=== PATIENT | male | born 1945 | race Caucasian/White ===

== ENCOUNTER 2022-02-14 19:59 | Observation (INO) | payer OTHER ==
--- OUTSIDE RECORDS SUMMARY | 2022-02-14 20:04 | XMS REPORT | Clinical Summary ---
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 [facility] BM Granulocyte % 14 7 - 30 % [facility] BM Eosinophil % 3 0 - 4 % [facility] BM Lymphocyte % 10 3 - 17 % [facility] BM Plasma Cell % 0 0 - 2 % [facility] BM Monocyte % 1 0 - 5 % [facility] BM Pronormoblast % 5 1 - 8 % [facility] BM Normoblast % 47 (H) 7 - 32 % [facility] BM M:E Ratio 0.7 (L) 3.0 - 4.0 [facility] Specimen Bone Marrow - Iliac Crest, Right Posteri or, Aspirate Performing Organization Address City/State/ZIP Code Phon e Number [facility] [place] [address] Remington Leyva MD EndLeukemia Mutation Panel V1 Interpretation and Report (01/12/2022 2:52 PM CDT) Specimen Narrative This result has an attachment that is no t available. CG Chromosome Analysis Interpretation and Report (01/12/2022 2:52 PM CDT) Specimen Narrative This result has an attachment that is no t available. Cytogenetics Specimen Collection -Bone Marrow (01/12/2022 2:52 PM CDT) Pathologist Sig [facility] Papo121nexus Link [phone] [facility] Cytogenetics (Received) Yes [facility] Specimen Bone Marrow Performing Organization Address City/[facility] Phon e Number [facility] CANCER Unless otherwise noted, [address] all lab tests performed by: Division of Pathology and Laboratory Medicine Remington Leyva FC Scatter Interpretation and Report (01/12/2022 2:52 PM CDT) Specimen Narrative This result has an attachment that is no t available. Molecular Diagnostics Specimen Collection -Bone Marrow (01/12/2022 2:52 PM CDT) Pathologist Sig [facility] Molecular Diagnostics Yes [facility] (Received) [facility] Evrentaker Ap Link [phone] [facility] Specimen Bone Marrow Performing Organization Address City/[facility]/ZIP [facility] Phon e Number [facility] CANCER Unless otherwise noted, [address] all lab tests performed by: Division of Pathology and Laboratory Medicine Remington Leyva MD FLT3 Mutation Analysis Interpretation and Report (01/12/2022 2:52 PM CDT) Specimen Narrative This result has an attachment that is no t available. .Serum Creatinine (01/12/2022 11:01 AM CDT)Only the most recent of2 results within the time period is included. Pathologist Sig nature Creatinine 0.88 0.67 - 1.17 mg/dL [facility] IC CENTER Specimen Blood Performing Organization Address City/[facility] Phon e Number [facility] DIAGNOSTIC Unless otherwise noted, [place] [address] CENTER all lab tests performed by: Division of Pathology and Laboratory Medicine [address] (ABNORMAL) .CBC (01/12/2022 11:01 AM CDT)Only the most recent of2 resultswithin the time period is included. WBC 3.1 (L) 4.0 - 11.0 [facility] K/uL DIAGNOSTIC CENTER RBC 2.32 (L) 4.50 - 6.00 [facility] M/uL DIAGNOSTIC CENTER Hgb 8.5 (L) 14.0 - 18.0 [facility] gm/dL DIAGNOSTIC CENTER Hct 25.4 (L) 40.0 - 54.0 % [facility] DIAGNOSTIC [place] MCV 110 (H) 82 - 98 fL [facility] DIAGNOSTIC [place] MCH 36.6 (H) 27.0 - 31.0 [facility] pg DIAGNOSTIC CENTER MCHC 33.5 31.0 - 36.0 [facility] gm/dL DIAGNOSTIC CENTER RDW-SD 65.1 (H) 35.1 - 46.3 [facility] fL DIAGNOSTIC CENTER RDW-CV 18.8 (H) 12.0 - 15.5 % [facility] DIAGNOSTIC [place] Platelet count 184 140 - 440 [facility] K/uL DIAGNOSTIC CENTER MPV No Result (A) 4.0 - 10.4 fL [facility] DIAGNOSTIC [place] INRBC 0.0 <=0.0 % [facility] Comment: DIAGNOSTIC CENTER The INRBC (instrument NRBC) value reflects the enumera tion of nucleated red blood cells contained in a 200uL samp le of whole blood analyzed by the instrument. This value may differ from the NRBC value reported in a manual differ ential, which is based on a 100 cell differential. Specimen Blood Performing Organization Address City/[facility] Phon e Number [facility] DIAGNOSTIC Unless otherwise noted, [place], [place] [address] CENTER all lab tests performed by: Division of Pathology and Laboratory Medicine [address] [place] Clot Expiration Date (01/12/2022 11:01 AM CDT)Only the most recent of2 results within the time period is included. Pathologist Sig nature T & S Expiration 01/15/2022 [facility] CANCER CENTER Specimen Blood Performing Organization Address City/State/ZIP Code Phon e Number [facility] CANCER Unless otherwise noted, [place] [address] CENTER all lab tests performed by: Division of Pathology and Laboratory Medicine [address] [place] Glomerular Filtration Rate (01/12/2022 11:01 AM CDT)Only the most recent of2 resultswithin the time period is included. eGFR-AA 96 >=60 [facility] Comment: mL/min/1.73 [facility] Normal eGFR: >= 60 mL/min/1.73 m2 sq. m Note: The eGFR is calculated using the CKD-EPI equation. The eGFR declines with age. eGFR <60 mL/min/1.73 m2 is considered as "decreased". This equation should only be used for patients 18 and older. According to the National Ki dney Foundation's Kidney Disease Outcome Quality Initiative (KDOQI) classification and 2012 Kidney Disease Improving Global Outcomes (KDIGO) Clinical Practice Guideline, the stage of CKD should be categorized based on estimated GFR. Stage Description GFR mL/min/1.73 m2 1 Normal or high GFR >=90 2 Mildly decreased GFR 60-89 3a Mildly to moderately decreased GFR 45-59 3b Moderately to severely decreased GFR 30-44 4 Severely decreased GFR 15-29 5 Kidney failure <15 eGFR-BRII 83 >=60 [facility] Comment: mL/min/1.73 [facility] Normal eGFR: >= 60 mL/min/1.73 m2 sq. m Note: The eGFR is calculated using the CKD-EPI equation. The eGFR declines with age. eGFR <60 mL/min/1.73 m2 is considered as "decreased". This equation should only be used for patients 18 and older. According to the National dney Foundation's Kidney Disease Outcome Quality Initiative (KDOQI) classification and 2012 Kidney Disease Improving Global Outcomes (KDIGO) Clinical Practice Guideline, the stage of CKD should be categorized based on estimated GFR. Stage Description GFR mL/min/1.73 m2 1 Normal or high GFR >=90 2 Mildly decreased GFR 60-89 3a Mildly to moderately decreased GFR 45-59 3b Moderately to severely decreased GFR 30-44 4 Severely decreased GFR 15-29 5 Kidney failure <15 Specimen Blood Performing Organization Address City/[facility] Phon e Number [facility] DIAGNOSTIC Unless otherwise noted, [place], [place] [address] CENTER all lab tests performed by: Division of Pathology and Laboratory Medicine [facility]5 [place] (ABNORMAL) Fractionated Bilirubin (01/12/2022 11:01 AM CDT)Only the most recent of2 resultswithin the time period is included. Pathologist [facility] Bili Total 1.5 (H) <=1.2 mg/dL [facility] Comment: DIAGNOSTIC CENTER Indocyanine Green (ICG) may cause falsely elevated bilirubin results. Total and direct bilirubin must not be measured from samples containing indocyanine green. False elevation of total harpal irubin can be seen in patients with IgG concentrations above 28 g/L. Bili Direct 0.2Comment: <=0.3 mg/dL [facility] Indocyanine Green DIAGNOSTIC CENTER (ICG) may cause falsely elevated bilirubin results. Total and direct bilirubin must not be measured from samples containing indocyanine green. Bili Indirect 1.3 (H) 0.0 - 0.9 [facility] mg/dL DIAGNOSTIC CENTER Specimen Blood Performing Organization Address City/[facility] Phon e Number [facility] DIAGNOSTIC Unless otherwise noted, [place] [address] CENTER all lab tests performed by: Division of Pathology and Laboratory Medicine [facility]5 [place] Leyva TMP Interpretation Antibody Screen Negative (01/12/2022 11:01 AM CDT)Only the most recent of2 resultswithin the time period is included. Pathologist [facility] TMP Auto Neg ABSC At the present time, patien t plasma shows no evidence of RBC alloantibodies. [facility] Interp Comment: CANCER CENTER MD Rachael ALFARO [id number] Dictated by: MD Rachael ALFARO [id number] Dictated Date/Time: 01.13.20 21:18 PM CDT Transcribed Date/Time: 01.12.2022 21:18 PM CDT Electronically Signed By: CORAL ARAMBULA MD - [id number] on 01.12.2022 21:18 PM Specimen Blood Performing Organization Address City/State/ZIP Code Phon e Number [facility] CANCER Unless otherwise noted, [place] [phone] [place] all lab tests performed by: Division of Pathology and Laboratory Medicine [address] [place] Peripheral Smear for Bone Marrow (01/12/2022 11:01 AM CDT) Pathologist Sig nature Peripheral Smear PSMEAR [facility] DIAGNOSTI C CENTER Specimen Blood Performing Organization Address City/State/ZIP Code Phon e Number [facility] DIAGNOSTIC Unless otherwise noted, [place] [address] [place] all lab tests performed by: Division of Pathology and Laboratory Medicine [address] [place] [address] [place] ABORh (01/12/2022 11:01 AM CDT)Only the most recent of2 resultswithin the time period is included. Pathologist Sig nature ABORh. A POS [facility] Specimen Blood Performing Organization Address City/[facility]/ZIP Code Phon e Number [facility] CANCER Unless otherwise noted, [address] all lab tests performed by: Division of Pathology and Laboratory Medicine [address] [place] [address] (ABNORMAL) Differential (01/12/2022 11:01 AM CDT)Only the most recent of2 resultswithin the time period is included. Neutrophil % 44.8 42.0 - 66.0 % [facility] Lymphocyte % 36.5 24.0 - 44.0 % [facility] Monocyte % 9.7 (H) 2.0 - 7.0 % [facility] DIAGNOSTIC [place] Eosinophil % 8.1 (H) 1.0 - 4.0 % [facility] Basophil % 0.3 0.0 - 1.0 % [facility] IGRE % 0.6 (H)Comment: 0.0 - 0.4 % [facility] IGRE % count DIAGNOSTIC CENTER includes Metamyelocytes, Myelocytes, and Promyelocytes. Neutrophil Abs 1.39 (L) 1.70 - 7.30 [facility] K/uL DIAGNOSTIC CENTER Lymphocyte Abs 1.13 1.00 - 4.80 [facility] DIAGNOSTIC CENTER Monocyte Abs 0.30 0.08 - 0.70 [facility] DIAGNOSTIC CENTER Eosinophil Abs 0.25 0.04 - 0.40 [facility] DIAGNOSTIC CENTER Basophil Abs 0.01 0.00 - 0.10 [facility] DIAGNOSTIC CENTER IG Abs 0.02 0.00 - 0.04 [facility] DIAGNOSTIC CENTER Specimen Blood Performing Organization Address City/[facility]/ZIP [facility] Phon e Number [facility] DIAGNOSTIC Unless otherwise noted, [address] all lab tests performed by: Division of Pathology and Laboratory Medicine [address] [place] Antibody Screen (01/12/2022 11:01 AM CDT)Only the most recent of2 resultswithin the time period is included. Pathologist Sig nature ABSC. Negative ABSC [facility] CANCER CENTE R Specimen Blood Performing Organization Address [facility] Phon e Number [facility] CANCER Unless otherwise noted, [address] all lab tests performed by: Division of Pathology and Laboratory Medicine [address] [place] Uric Acid (01/12/2022 11:01 AM CDT)Only the most recent of2 resultswithin the time period is included. Pathologist Sig nature Uric Acid 4.9 3.4 - 7.0 mg/dL [facility] Specimen Blood Performing Organization Address City/[facility] Phon e Number [facility] DIAGNOSTIC Unless otherwise noted, [address] all lab tests performed by: Division of Pathology and Laboratory Medicine [address] [place] BUN (01/12/2022 11:01 AM CDT)Only the most recent of2 resultswithin the time period is included. Pathologist Sig nature BUN 15 6 - 23 mg/dL [facility] DIAGNOSTIC CE NTER Specimen Blood Performing Organization Address City/[facility] Phon e Number [facility] DIAGNOSTIC Unless otherwise noted, [place] [address] [place] all lab tests performed by: Division of Pathology and Laboratory Medicine [address] [place] Alanine Aminotransferase (01/12/2022 11:01 AM CDT)Only the most recent of2 resultswithin the time period is included. Pathologist Sig nature ALT 21 <=41 U/L [facility] DIAGNOSTIC CE NTER Specimen Blood Performing Organization Address [facility] Phon e Number [facility] DIAGNOSTIC Unless otherwise noted, [address] all lab tests performed by: Division of Pathology and Laboratory Medicine [address] [place] Aspartate Aminotransferase (01/12/2022 11:01 AM CDT)Only the most recent of2 resultswithin the time period is included. Pathologist Sig nature AST 26 <=40 U/L [facility] DIAGNOSTIC CE NTER Specimen Blood Performing Organization Address [facility] Phon e Number [facility] DIAGNOSTIC Unless otherwise noted, [address] all lab tests performed by: Division of Pathology and Laboratory Medicine [address] [place] Total Protein (01/12/2022 11:01 AM CDT)Only the most recent of2 resultswithin the time period is included. Pathologist Sig nature Total Protein 6.7 6.4 - 8.3 g/dL [facility] Specimen Blood Performing Organization Address [facility] e Number [facility] DIAGNOSTIC Unless otherwise noted, [address] all lab tests performed by: Division of Pathology and Laboratory Medicine [address] Alkaline Phosphatase (01/12/2022 11:01 AM CDT)Only the most recent of2 results within the time period is included. Pathologist Sig nature Alk Phos 62 40 - 129 U/L [facility] DIAGNOSTIC CE NTER Specimen Blood Performing Organization Address [facility] Phon e Number [facility] DIAGNOSTIC Unless otherwise noted, [address] all lab tests performed by: Division of Pathology and Laboratory Medicine [address] LDH (01/12/2022 11:01 AM CDT)Only the most recent of2 resultswithin the time period is included. LDH 218Comment: Results 135 - 225 U/L [facility] greater than 1651 U/L [facility] may not be reliable due to matrix effect with extended dilution as it exceeds the acupuncture physician's recommended limit. Caution should be exercised when interpreting such values and done in conjunction with clinical context. Specimen Blood Performing Organization Address [facility] e Number [facility] DIAGNOSTIC Unless otherwise noted, [address] all lab tests performed by: Division of Pathology and Laboratory Medicine [address] [place] [address] Albumin Level (01/12/2022 11:01 AM CDT)Only the most recent of2 resultswithin the time period is included. Pathologist Sig nature Albumin Lvl 4.4 3.5 - 5.2 gm/dL [facility] Specimen Blood Performing Organization Address City/[facility]/ZIP [facility] Phon e Number [facility] DIAGNOSTIC Unless otherwise noted, [place] [address] [place] all lab tests performed by: Division of Pathology and Laboratory Medicine [address] [place] [address] Electrolyte Panel (01/12/2022 11:01 AM CDT)Only the most recent of2 results within the time period is included. Pathologist Sig nature Sodium Lvl 137 136 - 145 mEq/L [facility] Potassium Lvl 4.0 3.5 - 5.1 mEq/L [facility] DIAGNOSTI C CENTER Chloride 104 98 - 107 mEq/L [facility] CO2 27 22 - 29 mEq/L [facility] Anion Gap 6 4 - 14 mEq/L [facility] Specimen Blood Performing Organization Address [facility] Phon e Number [facility] DIAGNOSTIC Unless otherwise noted, [place] [address] [place] all lab tests performed by: Division of Pathology and Laboratory Medicine [address] [place] [address] Glucose, Random (07/09/2021 10:58 AM CDT) Glucose Random 133 70 - 199 mg/dL [facility] Comment: CANCER CENTER Effective 05/12/16, the gluco se reference intervals have been updated based on [employer] Diabetes [employer] guidelines (Standards of Medical Care in Diabetes 2016. Diabetes Care 2016; 39: S13-S22). Fasting blood glucose: Normal: 70-99 mg/dL Impaired fasting glucose (in creased risk for diabetes or pre-diabetes): 100- 125 mg/dL Diabetes mellitus: >/=126 mg/dL Random blood glucose: Normal: 70-199 mg/dL Note: Random glucose >100 mg/dL is assoc iated with increased risk for diabetes Specimen Blood Performing Organization Address City/[facility] Phon e Number [facility] CANCER Unless otherwise noted, [address] all lab tests performed by: Division of Pathology and Laboratory Medicine [address] [place] Phosphorus Level (07/09/2021 10:58 AM CDT) Pathologist Sig nature Phosphorus 2.5 2.5 - 4.5 mg/dL [facility] CANCER TYE TER Specimen Blood Performing Organization Address [facility] Phon e Number [facility] CANCER Unless otherwise noted, [address] all lab tests performed by: Division of Pathology and Laboratory Medicine [address] [place] Magnesium Level (07/09/2021 10:58 AM CDT) Pathologist Sig nature Magnesium 1.9 1.6 - 2.6 mg/dL [facility] CANCER TYE TER Specimen Blood Performing Organization Address [facility] Phon e Number [facility] CANCER Unless otherwise noted, [address] all lab tests performed by: Division of Pathology and Laboratory Medicine [address] [place] Calcium Level (07/09/2021 10:58 AM CDT) Pathologist Sig nature Calcium Lvl 9.2 8.4 - 10.2 mg/dL [facility] CANCER CE NTER Specimen Blood Performing Organization Address [facility] Phon e Number [facility] CANCER Unless otherwise noted, [address] all lab tests performed by: Division of Pathology and Laboratory Medicine [address] [place] after 02/14/2021 Insurance Payer Benefit Plan / Subscriber ID Effective Dates Phone Addre ss Type Group AETNA MEDICARE AETNA MEDICARE [id number] 2021-Presen [address] [place] [address] Care Teams Chyron Operator Relationship Specialty Start Date End Date Esther Nair MD PCP - General Leukemia 02/24/17 [address], [place] [phone] DELMA Villarreal - External Referring Hematology 02/24/17 Telma Richardson [place] [address] [address] Steffany De La Torre Physician Hematology and 06/29/[address] [place] [address]
--- OUTSIDE RECORDS SUMMARY | 2022-02-14 20:05 | XMS REPORT | Continuity of Care Document ---
:1945 Author Organization [facility] t Address [address] [place] [address] Care Team Providers Name Role Phone [phone] Primary Care Physician Unavailable SYSTEM, NOT IN Attending Clinician Unavailable Blayne BUCIO Attending Clinician Paulina Aranda APN Attending Clinician Tito BUCIO Attending Clinician PAULINA ARANDA Attending Clinician Unavailable Burak NUÑEZ Attending Clinician BURAK Attending Clinician Unavailable Kelly NOLEN Attending Clinician KELLY Attending Clinician Unavailable Elier MARTÍNEZ Attending Clinician Unavailable Elier Martínez RN Attending Clinician Unavailable Payers Payer Name Policy Type Policy Effective Date Expiration Date Sour ce Number AETNA MEDICAREAETNA [id number] 2021 MD Gutierrez MEDICARE 00:00:00 [id number] [address], [place] [address]Medicare Problems Condition Condition Condition Status Onset Resolution Last Treating Co mments Source Name Details Category Date Date Treatment Clinician Date 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 00 Leukopenia Leukopenia Disease Active 2017-10 M D 0-07 Anderso 00:00: n 00 Exam of Exam of Disease Active MD gamez participamilcar 9-12 An derso t in t in 00:00: n clinical clinical 00 trial trial Entered Entered Disease Active into drug into drug 06-16 Dewey rso clinical clinical 00:00: n trial trial 00 Simple Simple Disease Active renal cyst renal cyst 30 An derso 00:00: n 00 Other Other Disease Active fatigue fatigue 11-15 Anderso 00:00: n 00 Dyspnea Dyspnea Disease Active 30 Anderso 00:00: n 00 RARS RARS Disease Active 06-09 Anderso 00:00: n 00 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 Family History Family Member Diagnosis Comments Start Date Stop Date Source Natural father -Gastrointestinal MD Gutierrez (Esophagus, Liver, Bile Duct, Stomach, Pancreas, Colon, Rectum, Anus Natural father -Head and Neck Natural father -Skin (not Melanoma) MD Gutierrez Natural father Coronary heart disease (CHD) MD Gutierrez Social History Social Habit Start Date Stop Date Quantity Comments Source History [facility] MD Gutierrez Alcohol Frequency History [facility] MD Gutierrez Alcohol Std Drinks History [facility] MD Gutierrez Alcohol Binge Alcohol intake 2019-02-01 2019-02-01 Current drinker of MD Gutierrez 00:00:00 00:00:00 alcohol (finding) History [facility] 2017-03-21 2017-03-21 Very rare MD Gutierrez Alcohol Comment 00:00:00 00:00:00 Cigarettes smoked 2017-03-01 2017-03-01 MD Dewey doherty current (pack per 00:00:00 00:00:00 day) - Reported Cigarette 2017-03-01 2017-03-01 MD Gutierrez pack-years 00:00:00 00:00:00 Tobacco use and 2017-03-01 2017-03-01 Former smokeless MD Gutierrez exposure 00:00:00 00:00:00 tobacco user History of tobacco 1962-10-17 1983-10-21 Current smoker MD Gutierrez use 00:00:00 00:00:00 Sex [birth year] MD Hinton on 00:00:00 00:00:00 Smoking Status Start Date Stop Date Source Ex-smoker 2017-03-01 00:00:00 2017-03-01 00:00:00 MD Zurita son Medications Ordered Filled Start Stop Current Ordering Indication Dosage Frequency Signature Comments Components Source Medication Medication Date Date Medication? Clinician (SIG) Name Name aspirin Yes 81mg 81 mg (ASPIRIN 3-29 daily. Anderso LOW DOSE) 12:44: n 81 mg EC 29 tablet atorvastati Yes 10mg Take 10 mg MD márquez (LIPITOR) 3-29 by mouth Dewey rso 10 mg 12:44: daily. n tablet 29 fluocinolon Yes Administer MD morillo acetonide 4-05 into both And erso oiL 0.01 % 00:00: ears as n drop 00 needed. Immunizations Ordered Immunization Filled Immunization Date Status Commen ts Source Name Name Influenza, 2021-07-09 Completed MD Gutierrez Quadrivalent 00:00:00 Moderna SARS-CoV-2 2021-06-24 Completed MD And erson Vaccination 00:00:00 Moderna SARS-CoV-2 2020-11-22 Completed MD And erson Vaccination 00:00:00 Moderna SARS-CoV-2 2020-10-25 Completed MD And erson Vaccination 00:00:00 Vital Signs Vital Name Observation Time Observation Value Comments Source WEIGHT 2021-01-06 13:18:34 83.3 kg WEIGHT 2020-09-25 11:27:09 83.4 kg WEIGHT 2020-07-03 12:19:37 82.8 kg Systolic blood pressure 2022-01-12 19:59:00 144 mm[Hg] MD Gutierrez Diastolic blood pressure 2022-01-12 19:59:00 68 mm[Hg] MD Gutierrez Heart rate 2022-01-12 19:59:00 73 /min MD Parminder sellers Body temperature 2022-01-12 15:57:25 36.89 Maribell MD Darvin miranda Respiratory rate 2022-01-12 15:57:25 18 /min MD Darvin miranda Body weight 2022-01-12 15:57:25 78 kg MD Parminder sellers BMI 2022-01-12 15:57:25 29.61 kg/m2 MD Parminder sellers Oxygen saturation in 2022-01-12 15:57:25 97 /min MD Gutierrez Arterial blood by Pulse oximetry Procedures Procedure Date / Time Performed Performing Clinician Sour e LABORATORY HP MOLECULAR 2022-01-13 18:06:00 Janes Aranda MD DIAGNOSTICS ([facility]) ADD-ON TEST LA DIAGNOSTIC BONE MARROW 2022-01-12 19:59:45 Janes Aranda MD BIOPSIES & ASPIRATIONS HP FC MDS FOLLOW UP 2022-01-12 19:52:00 Janes Aranda MD COLLECTION, NONBLOOD HP CG CHROMOSOME ANALYSIS 2022-01-12 19:52:00 Janes Aranda MD COLLECTION, NONBLOOD HP TP53 COLLECTION, 2022-01-12 19:52:00 Janes Aranda MD NONBLOOD HP FLT3 ANALYSIS 2022-01-12 19:52:00 Janes Aranda MD COLLECTION, NONBLOOD HP ASXL1 COLLECTION, 2022-01-12 19:52:00 Janes Aranda MD NONBLOOD HP RUNX1 MUTATION ANALYSIS 2022-01-12 19:52:00 Janes Aranda MD COLLECTION, NONBLOOD HP DNMT3A SEQUENCING 2022-01-12 19:52:00 Janes Aranda MD ANALYSIS COLLECTION, NONBLOOD HP MOLECULAR BLOOD COLLECTION 2022-01-12 19:52:00 Janes Aranda MD HP FLT3 ANALYSIS 2022-01-12 19:52:00 Janes Aranda MD INTERPRETATION AND REPORT HP CYTOGENETICS BLOOD 2022-01-12 19:52:00 Janes Aranda COLLECTION HP CG CHROMOSOME ANALYSIS 2022-01-12 19:52:00 Janes Aranda MD INTERPRETATION AND REPORT HP FC SCATTER INTERPRETATION 2022-01-12 19:52:00 Janes Aranda MD AND REPORT HP MD ENDLEUKEMIA MUTATION 2022-01-12 19:52:00 Janes Aranda MD PANEL V1 INTERPRETATION AND REPORT HEMATOPATHOLOGY BONE MARROW 2022-01-12 19:52:00 Esther Nair MD INTERPRETATION HEMATOPATHOLOGY BONE MARROW 2022-01-12 19:52:00 Esther Nair MD DIFFERENTIAL TOTAL PROTEIN 2022-01-12 16:01:00 Cata Sumner MD rson ALBUMIN LEVEL 2022-01-12 16:01:00 Cata Sumner MD rson BLOOD UREA NITROGEN 2022-01-12 16:01:00 Cata Sumner MD SERUM CREATININE 2022-01-12 16:01:00 Cata Sumner MD And erson URIC ACID 2022-01-12 16:01:00 Cata Sumner MD Dewey rson FRACTIONATED BILIRUBIN 2022-01-12 16:01:00 Cata Sumner MD ALKALINE PHOSPHATASE 2022-01-12 16:01:00 Cata Sumner MD LACTATE DEHYDROGENASE 2022-01-12 16:01:00 Cata Sumner ALANINE AMINOTRANSFERASE 2022-01-12 16:01:00 Giovani Sumner ELECTROLYTE PANEL 2022-01-12 16:01:00 Cata Sumner MD derson ASPARTATE AMINOTRANSFERASE 2022-01-12 16:01:00 Boris Sumner MD TYPE AND SCREEN 2022-01-12 16:01:00 Cata Sumner MD Dewey rson COMPLETE BLOOD COUNT W/ 2022-01-12 16:01:00 Cata Sumner MD DIFFERENTIAL SERUM CREATININE 2022-01-12 16:01:00 Cata Sumner MD And erson .GLOMERULAR FILTRATION RATE 2022-01-12 16:01:00 Jocelin Sumner MD ABORH 2022-01-12 16:01:00 Cata Sumner MD Edwey rson ANTIBODY SCREEN 2022-01-12 16:01:00 Cata Smuner MD Dewey rson Results CBC 2022-01-12 16:01:00 Cata Sumner MD Dewey rson MANUAL DIFFERENTIAL 2022-01-12 16:01:00 Cata Sumner MD CLOT EXPIRATION DATE 2022-01-12 16:01:00 Cata Sumner MD TMP INTERPRETATION ANTIBODY 2022-01-12 16:01:00 Jocelin Sumner MD SCREEN NEGATIVE PERIPHERAL SMEAR FOR BONE 2022-01-12 16:01:00 Elena Sumner MD MARROW TOTAL PROTEIN 2021-07-09 15:58:00 Cata Sumner MD Dewey rson ALBUMIN LEVEL 2021-07-09 15:58:00 Cata Sumner MD Dewey rson CALCIUM LEVEL TOTAL 2021-07-09 15:58:00 Cata Sumner MD PHOSPHORUS LEVEL 2021-07-09 15:58:00 Cata Sumner MD And erson GLUCOSE, RANDOM 2021-07-09 15:58:00 Cata Sumner MD Dewey rson BLOOD UREA NITROGEN 2021-07-09 15:58:00 Cata Sumner MD SERUM CREATININE 2021-07-09 15:58:00 Cata Sumner MD And erson URIC ACID 2021-07-09 15:58:00 Cata Sumner MD Dewey rson FRACTIONATED BILIRUBIN 2021-07-09 15:58:00 Cata Sumner MD ALKALINE PHOSPHATASE 2021-07-09 15:58:00 Cata Sumner MD LACTATE DEHYDROGENASE 2021-07-09 15:58:00 Cata Sumner ALANINE AMINOTRANSFERASE 2021-07-09 15:58:00 Giovani Sumner ELECTROLYTE PANEL 2021-07-09 15:58:00 Cata Sumner MD derson MAGNESIUM LEVEL 2021-07-09 15:58:00 Cata Sumner MD Dewey rson ASPARTATE AMINOTRANSFERASE 2021-07-09 15:58:00 Boris Sumner MD TYPE AND SCREEN 2021-07-09 15:58:00 Cata Sumner MD Dewey rson COMPLETE BLOOD COUNT W/ 2021-07-09 15:58:00 Cata Sumner MD DIFFERENTIAL SERUM CREATININE 2021-07-09 15:58:00 Cata Sumner MD And erson .GLOMERULAR FILTRATION RATE 2021-07-09 15:58:00 Jocelin Sumner MD Results CBC 2021-07-09 15:58:00 Cata Sumner MD Dewey rson MANUAL DIFFERENTIAL 2021-07-09 15:58:00 Cata Sumner MD ABORH 2021-07-09 15:58:00 Cata Sumner MD Dewey rson ANTIBODY SCREEN 2021-07-09 15:58:00 Cata Sumner MD Dewey rson CLOT EXPIRATION DATE 2021-07-09 15:58:00 Cata Sumner MD TMP INTERPRETATION ANTIBODY 2021-07-09 15:58:00 Jocelin Sumner MD SCREEN NEGATIVE Plan of Care Planned Activity Planned Date Details Comments Source Future Scheduled Test 2021-11-24 00:00:00 COVID-19 Vaccination (4 MD Gutierrez - Booster for Moderna series) [code = COVID-19 Vaccination (4 - Booster for Moderna series)] Encounters Start End Encounter Admission Attending Care Care Encounter Source Date/Time Date/Time Type Type Clinicians Facility Department ID 2021-07-13 Outpatient SYSTEM, MDA MDA [id number] 13:48:43 PROVIDER Jamaal o n 2021-01-21 Outpatient SYSTEM, MDA MDA [id number] 14:47:44 PROVIDER Jamaal o n 2021-01-12 Outpatient SYSTEM, MDA MDA [id number] 14:54:17 PROVIDER Jamaal o n 2020-08-11 Outpatient SYSTEM, MDA MDA [id number] 13:55:31 PROVIDER Jamaal o n 2020-05-09 Outpatient SYSTEM, MDA MDA [id number] 12:21:02 PROVIDER Jamaal o n 2022-01-12 2022-01-12 Outpatient JANES CALDERON MDA MDA [id number] 13:56:18 23:59:00 Ajmaal o n 2022-01-12 2022-01-12 Outpatient TRICIA SUMNER MDA MDA [id number] 10:46:41 13:55:00 CATA Palomo rso n 2022-01-12 2022-01-12 Outpatient TRICIA NAIR MDA MDA [id number] 10:47:23 13:49:33 ESTHER And erso n 2021-07-09 2021-07-09 Outpatient TRICIA SUMNER MDA MDA [id number] 10:36:45 23:59:00 CATA Palomo rso n 2021-07-09 2021-07-09 Outpatient TRICIA MARTÍNEZ, MDA MDA [id number] 14:03:21 14:18:22 ANA Hinton o n 2021-07-09 2021-07-09 Outpatient TRICIA NAIR, MDA MDA [id number] 10:37:09 13:55:41 PRITHVIRAJ And erso n 2021-01-06 2021-01-06 Outpatient TRICIA SUMNER, MDA MDA [id number] 15:10:25 23:59:00 CATA Wellse rso n 2021-01-06 2021-01-06 Outpatient TRICIA NAIR, MDA MDA [id number] 12:40:51 15:21:59 PRITHVIRAJ And erso n 2021-01-06 2021-01-06 Outpatient TRICIA SUMNER, MDA MDA [id number] 12:41:05 15:09:00 CATA Palomo rso n 2020-09-25 2020-09-25 Outpatient TRICIA SUMNER, MDA MDA [id number] 11:18:00 23:59:00 CATA Palomo rso n 2020-09-25 2020-09-25 Outpatient TRICIA NAIR, MDA MDA [id number] 11:18:28 13:08:43 PRITHVIRAJ And erso n 2020-07-03 2020-07-03 Outpatient TRICIA SUMNER, MDA MDA [id number] 13:57:17 23:59:00 CATA Palomo rso n 2020-07-03 2020-07-03 Outpatient TRICIA NAIR, MDA MDA [id number] 11:45:47 13:58:23 PRITHVIRAJ And erso n 2020-07-03 2020-07-03 Outpatient TRICIA SUMNER, MDA MDA [id number] 11:45:25 13:56:00 CATA Palomo rso n Results Test Description Test Time Test Comments Results Result Comments Source Laboratory HP Molecular Diagnostics Add-on Test 2022-01-14 0 1:28:45 Test Item Value Reference Range Interpretation Comme nts Molecular Diagnostics (Received) (test code = 8400) Yes Test Needed (test code = 7604) SF3B1, TET2 MD GutierrezFC MDS Follow Up Collection, [id number] 15:29:31 Test Item Value Reference Range Interpretation Comments Flow Cytometry (Received) (test code = Yes 8319) [facility] Interpret[facility] Antibody Screen [id number] 02:18:29 Test Item Value Reference Range Interpretation Comments TMP Auto Neg At the present ABSC Interp time, patient (test code = plasma shows no ____CORAL ARAMBULA MD - 7535) evidence of RBC [id number] d by: CORAL alloantibodies. MD Rachael PATEL [id number] D ate/Time: 01.12.2022 21:1 8 PM CDT Transcribed Da te/Time: 01.12.2022 21:1 8 PM CDTElectronical ly Signed By: MD Rachael GARRIDO [id number] on 01.12 21:18 PM MD GutierrezPeripheral Smear for Bone [id number] 01:49:54 Test Item Value Reference Range Interpretation Comments Peripheral Smear (test code = 4273) PSMEAR MD GutierrezCytogenetics Specimen Collection -Bone [id number] 21:54:27 Test Item Value Reference Range Interpretation Comments Beaker Ap Link (test code = 47127) [id number] Cytogenetics (Received) (test code Yes = 8304) MD Turpin Chromosome Analysis Collection, [id number] 21:52:47 Test Item Value Reference Range Interpretation Comments Cytogenetics (Received) (test code = Yes 8304) MD Stover RUNX1 Mutation Analysis Collection, [id number] 21:52:08 Test Item Value Reference Range Interpretation Comments Molecular Diagnostics (Received) (test Yes code = 8400) MD Stover ASXL1 Collection, [id number] 21:52:07 Test Item Value Reference Range Interpretation Comments Molecular Diagnostics (Received) (test Yes code = 8400) MD Stover TP53 Collection, [id number] 21:52:06 Test Item Value Reference Range Interpretation Comments Molecular Diagnostics (Received) (test Yes code = 8400) MD Stover FLT3 Mutation Analysis Collection, [id number] 21:52:05 Test Item Value Reference Range Interpretation Comments Molecular Diagnostics (Received) (test Yes code = 8400) MD Stover DNMT3A Mutation Analysis Collection, [id number] 21:52:04 Test Item Value Reference Range Interpretation Comments Molecular Diagnostics (Received) (test Yes code = 8400) MD GutierrezMolecular Diagnostics Specimen Collection -Bone [id number] 21:48:43 Test Item Value Reference Range Interpretation Comments Molecular Diagnostics (Received) Yes (test code = 8400) Jonathon Ap Link (test code = 35611) [id number] MD GutierrezAntibody [id number] 20:52:09 Test Item Value Reference Range Interpretation Comments ABSC. (test code = 890-4) Negative ABSC MD [id number] 20:52:08 Test Item Value Reference Range Interpretation Comments ABORh. (test code = 882-1) A POS MD GutierrezClot Expiration [id number] 20:52:03 Test Item Value Reference Range Interpretation Comments T & S Expiration (test code = 01/15/2022 5318) MD GutierrezFractionated [id number] 17:08:18 Test Item Value Reference Range Interpretation Comments Bili Total (test code 1.5 mg/dL See_Comment H Indocy anine Green = 1974-11) (ICG) may cause falsely elevate d bilirubin resul ts. Total and direc t bilirubin must not be measured from s amples containing indo cyanine green. False el evation of total biliru bin can be seen in kaushal ents with IgG concentrations above 28 g/L. [Autom ated message] The sy stem which generated this result transmit joseph reference range : <=1.2. The refe rence range was not u sed to interpret this result as normal/abnor mal. Bili Direct (test code 0.2 mg/dL See_Comment Indoc yanine Green = 1968-04) (ICG) may cause falsely elevate d bilirubin resul ts. Total and direc t bilirubin must not be measured from s amples containing indo cyanine green. [Automat ed message] The sy stem which generated this result transmit joseph reference range : <=0.3. The refe rence range was not u sed to interpret this result as normal/abnor mal. Bili Indirect (test 1.3 mg/dL 0.0-0.9 H code = 1971-1) Lab Interpretation Abnormal (test code = 56255-1) MD GutierrezGlomerular Filtration [id number] 17:08:17 Test Item Value Reference Range Interpretation Comments eGFR-AA (test code 96 See_Comment Normal eG FR: >= 60 = 69159-2) mL/min/1.73 m2N ote: The eGFR is calculated u sing the CKD-EPI equatio n. The eGFR declines with a ge. eGFR <60 mL/min/1.73 m2 is considered as "decreased". This equation should only be used for patients 18 and older. According to e National Kidney [employer] on's Kidney Disease Outcome Quality Initiative (KDO QI) classification and 2012 Kidney Disease Improving Global Outcomes (KDIGO) Clinical Practi ce Guideline, the stage of CK D should be categorized bas ed on estimated GFR. Stage Description GFR mL/min/1.73 m21 Normal or high GFR >=902 Mildly decrease d GFR 60-893a M ildly to moderately decr eased GFR 45-593b Moderat haley to severely decrea sed GFR 30-444 Severely decreased GFR 15-295 Kid ross failure <15 [Automa joseph message] The system [employer] generated this result tra nsmitted reference range : >=60 mL/min/1.73 sq. m. The reference range was not used to interpret th is result as normal/abnormal . eGFR-BRII (test code 83 See_Comment Normal e GFR: >= 60 = 46104-2) mL/min/1.73 m2N ote: The eGFR is calculated u sing the CKD-EPI equatio n. The eGFR declines with a ge. eGFR <60 mL/min/1.73 m2 is considered as "decreased". This equation should only be used for patients 18 and older. According to e National [employer] on's Kidney Disease Outcome Quality Initiative (KDO QI) classification and 2012 Kidney Disease Improving Global Outcomes (KDIGO) Clinical Practi ce Guideline, the stage of CK D should be categorized bas ed on estimated GFR. Stage Description GFR mL/min/1.73 m21 Normal or high GFR >=902 Mildly decrease d GFR 60-893a M ildly to moderately decr eased GFR 45-593b Moderat haley to severely decrea sed GFR 30-444 Severely decreased GFR 15-295 Kid ross failure <15 [Automa joseph message] The system whic h generated this result tra nsmitted reference range : >=60 mL/min/1.73 sq. m. The reference range was not used to interpret th is result as normal/abnormal . MD [id number] 17:08:16 Test Item Value Reference Range Interpretation Comments LDH (test code = 218 U/L 135-225 Results gre ater than 1651 50418-0) U/L may not be reliable due to matrix effec t with extended diluti on as it exceeds the man ufacturer's recommended alfonso it. Caution should be exerc ised when interpreting duran ch values and done in con junction with clinical c ontext. MD GutierrezAlkaline [id number] 17:08:15 Test Item Value Reference Range Interpretation Comments Alk Phos (test code = 6768-6) 62 U/L 40-129 MD GutierrezAlbumin [id number] 17:08:14 Test Item Value Reference Range Interpretation Comments Albumin Lvl (test code 4.4 See_Comment [Aut omated message] The = 0170) system which ge nerated this result tra nsmitted reference range : 3.5 - 5.2 gm/dL. The refe rence range was not used to interpret this result as normal/abnormal . MD GutierrezAspartate [id number] 17:08:13 Test Item Value Reference Range Interpretation Comments AST (test code = 26 U/L See_Comment [Automated message] The 1920-05) system which [employer] nerated this result transmit joseph reference range : <=40. The reference range was not used to interpr et this result as loida l/abnormal. MD GutierrezElectrolyte [id number] 17:08:12 Test Item Value Reference Range Interpretation Comments Sodium Lvl (test code = 137 See_Comment [Au tomated message] The 2950-11) system which [employer] nerated this result tra nsmitted reference range : 136 - 145 mEq/L. The reference range was not u sed to interpret this result as normal/abnormal . Potassium Lvl (test 4.0 See_Comment [Automa joseph message] The code = 2823-3) system which generated this result tra nsmitted reference range : 3.5 - 5.1 mEq/L. The reference range was not u sed to interpret this result as normal/abnormal . Chloride (test code = 104 See_Comment [Auto mated message] The ) system which ge nerated this result tra nsmitted reference range : 98 - 107 mEq/L. The refe rence range was not u sed to interpret this result as normal/abnormal . CO2 (test code = 27 See_Comment [Automated message] The 2028-06) system which ge nerated this result tra nsmitted reference range : 22 - 29 mEq/L. The refe rence range was not u sed to interpret this result as normal/abnormal . Anion Gap (test code = 6 See_Comment [Aut omated message] The ) system which ge nerated this result tra nsmitted reference range : 4 - 14 mEq/L. The refe rence range was not u sed to interpret this result as normal/abnormal . MD Gutierrez.Serum [id number] 17:08:11 Test Item Value Reference Range Interpretation Comments Creatinine (test code = 2160-0) 0.88 mg/dL 0.67-1.17 MD GutierrezUric [id number] 17:07:55 Test Item Value Reference Range Interpretation Comments Uric Acid (test code = 3084-1) 4.9 mg/dL 3.4-7.0 MD GutierrezTotal [id number] 17:07:54 Test Item Value Reference Range Interpretation Comments Total Protein (test code = 2885-2) 6.7 g/dL 6.4-8.3 MD GutierrezAlanine [id number] 17:07:53 Test Item Value Reference Range Interpretation Comments ALT (test code = 21 U/L See_Comment [Automated message] The 1742-03) system which ge nerated this result transmit joseph reference range : <=41. The reference range was not used to interpr et this result as loida l/abnormal. MD [id number] 17:07:52 Test Item Value Reference Range Interpretation Comments BUN (test code = 3094-0) 15 mg/dL 6-23 MD Gutierrez[id number] 16:55:40 Test Item Value Reference Range Interpretation Comments Neutrophil % (test code = 44.8 % 42.0-66.0 770-8) Lymphocyte % (test code = 36.5 % 24.0-44.0 736-9) Monocyte % (test code = 9.7 % 2.0-7.0 H 5905-5) Eosinophil % (test code = 8.1 % 1.0-4.0 H 713-8) Basophil % (test code = 0.3 % 0.0-1.0 29223-4) IGRE % (test code = 0.6 % 0.0-0.4 H IGRE % c ount 40257-2) includes Metamyelocytes, Myelocytes, and Promyelocytes. Neutrophil Abs (test code 1.39 K/uL 1.70-7.30 L = 751-8) Lymphocyte Abs (test code 1.13 K/uL 1.00-4.80 = 731-0) Monocyte Abs (test code = 0.30 K/uL 0.08-0.70 742-7) Eosinophil Abs (test code 0.25 K/uL 0.04-0.40 = 711-2) Basophil Abs (test code = 0.01 K/uL 0.00-0.10 704-7) IG Abs (test code = 0.02 K/uL 0.00-0.04 96929-7) Lab Interpretation (test Abnormal code = 12553-6) MD Gutierrez.[id number] 16:55:37 Test Item Value Reference Range Interpretation Comments WBC (test code = 3.1 K/uL 4.0-11.0 L 6690-2) RBC (test code = 789-8) 2.32 See_Comment L [Au tomated message] The system [employer] generated this result transmitted ref erence range: 4.50 - 6 .00 M/uL. The refer ence range was not u sed to interpret this result as normal/abnor mal. Hgb (test code = 718-7) 8.5 See_Comment L [Au tomated message] The system [employer] generated this result transmitted ref erence range: 14.0 - 1 8.0 gm/dL. The refe rence range was not u sed to interpret this result as normal/abnor mal. Hct (test code = 25.4 % 40.0-54.0 L 4544-3) MCV (test code = 787-2) 110 fL 82-98 H MCH (test code = 785-6) 36.6 pg 27.0-31.0 H MCHC (test code = 33.5 See_Comment [Automate d message] 786-4) The system [employer] generated this result transmitted ref erence range: 31.0 - 3 6.0 gm/dL. The refe rence range was not u sed to interpret this result as normal/abnor mal. RDW-SD (test code = 65.1 fL 35.1-46.3 H 47495-9) RDW-CV (test code = 18.8 % 12.0-15.5 H 788-0) Platelet count (test 184 K/uL 140-440 code = 777-3) MPV (test code = No Result 4.0-10.4 A 72214-5) INRBC (test code = 0.0 % See_Comment The INRBC (instrument 27739-8) NRBC) value ref lects the enumeration of nucleated red b lood cells contained in a 200uL sampleof whole blood analyzed by the instrument. Thi s value maydiffer from the NRBC value reported in a anual differential,wh ich is based on a 100 cell differential. [Automated mess age] The system [employer] generated this result transmitted ref erence range: <=0.0. T he reference range was not used to int erpret this result as normal/abnormal . Lab Interpretation Abnormal (test code = 68814-6) MD GutierrezMagnesium [id number] 17:25:15 Test Item Value Reference Range Interpretation Comments Magnesium (test code = 6359) 1.9 mg/dL 1.6-2.6 MD GutierrezGlucose, [id number] 17:25:09 Test Item Value Reference Range Interpretation Comments Glucose Random (test 133 mg/dL 70-199 Effecti ve 05/12/16, the code = 9360) glucose referen ce intervals have been updated based o n [place] [employer] sonny delines (Standards of edical Care in Diabete s 2016. Diabetes Care 2 016; 39: S13-S22).Fastin g blood glucose:Normal: 70-99 mg/dLImpaired f asting glucose (increa sed risk for diabetes or pre-diabetes): 100-125 mg/dLDiabetes m ellitus: >/=126 mg/dL Ra ndom blood glucose:N ormal: 70-199 mg/dLNot e: Random glucose >100 mg /dL is associated with increased risk for diabetes MD GutierrezPhosphorus [id number] 17:25:08 Test Item Value Reference Range Interpretation Comments Phosphorus (test code = 6817) 2.5 mg/dL 2.5-4.5 MD GutierrezCalcium [id number] 17:25:06 Test Item Value Reference Range Interpretation Comments Calcium Lvl (test code = 5258) 9.2 mg/dL 8.4-10.2 MD Gutierrez
[2022-02-14 20:47] LABS: Absolute Lymphocytes (CBC) 0.9 K/uL (0.7-4.9); Hematocrit 23.6 % (39.6-49.0); Lymphocytes % 39.5 % (15.3-44.8); MPV 9.1 fL (7.6-11.3); Protime INR 1.26; RBC Red Blood Cell Count 2.17 M/uL (4.33-5.43)
[2022-02-14 21:00] LABS: Albumin 3.6 g/dL (3.4-5.0); Bilirubin Direct 0.3 mg/dL (0-0.2); Bilirubin Total 0.9 mg/dL (0.2-1.0); Magnesium 1.9 mg/dL (1.8-2.4); Potassium 3.4 mmol/L (3.5-5.1); Protein, Total 6.3 g/dL (6.4-8.2); Troponin High Sensitivity 9.6 pg/mL (<58.9)
--- NOTE | 2022-02-14 21:20 | RAD REPORT ---
EXAM DESCRIPTION: RAD - Chest Single View - 02/14/2022 9:11 pm CLINICAL HISTORY: presyncope Chest pain. COMPARISON: Chest Pa And Lat (2 Views) dated 08/04/2017; CHEST PA AND LAT 2 VIEW dated 10/20/2012; REAL ST SINGLE VIEW dated 09/14/2011; CHEST PA AND LAT 2 VIEW dated 05/14/2010 FINDINGS: Portable technique limits examination quality. The lungs are grossly clear. The heart is normal in size. No displaced fractures. IMPRESSION: No acute intrathoracic process suspected.
--- NOTE | 2022-02-14 23:46 | ER ---
Nurse's Notes [facility] Name: Juan Miguel Aguilar Age: 76 yrs Sex: Male : 1945 Arrival Date: 02/14/2022 Time: 20:01 Bed 18 Private MD: Diagnosis: Syncope and Collapse;Insect Envenomation;Anemia Presentation: 02/14 20:06 Chief complaint: EMS states: [facility] states that pt had been stung by a wasp kd3 on the left side of the neck. pt had trouble breathing and began to sweat and began vomiting. pt called EMS. pt received 12.5 mg Benadryl IV and 12.5 Benadryl IM as well as 125 Solu Medrol and 12.5 mg Phenergan en route. pt symptoms improved. 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 last chemo was approximately 2 weeks ago. Coronavirus screen: Vaccine status: Patient reports receiving the 2nd dose of the covid vaccine. Ebola Screen: No symptoms or risks identified at this time. Onset: The symptoms/episode began/occurred suddenly. Anaphylaxis evaluation, the patient reports or I have noted the following symptoms which indicate a significant risk of anaphylaxis: shortness of breath tachypnea. Initial Sepsis Screen: Does the patient meet any 2 criteria? No. Patient's initial sepsis screen is negative. Does the patient have a suspected source of infection? No. Patient's initial sepsis screen is negative. Risk Assessment: Do you want to hurt yourself or someone else? Patient reports no desire to harm self or others. Onset of symptoms was February 14, 2022. 20:06 Method Of Arrival: EMS: [facility] kd3 20:06 Acuity: SCARLET 3 kd3 Triage Assessment: 20:12 General: Appears in no apparent distress. Behavior is calm, cooperative. Pain: Denies kd3 pain. Historical: - Allergies: 20:12 Ibuprofen; kd3 - Home Meds: 20:12 aspirin 81 mg Oral tab 81 mg daily [Active]; Lipitor 10 mg Oral tab 1 tab once daily kd3 for hyperlipidemia [Active]; - PMHx: 20:12 cancer rbc; kd3 - PSHx: 20:12 None; kd3 - Immunization history:: Adult Immunizations up to date. - Social history:: Smoking status: unknown. Screenin:16 Abuse screen: Denies threats or abuse. Denies injuries from another. Nutritional kd3 screening: No deficits noted. Tuberculosis screening: No symptoms or risk factors identified. Fall Risk IV access (20 points). Assessment: 20:17 Respiratory: Airway is patent Respiratory effort is even, unlabored, Breath sounds are kd3 clear bilaterally. 20:38 Reassessment: No changes from previously documented assessment. Patient and/or family kd3 updated on plan of care and expected duration. Pain level reassessed. Patient is alert, oriented x 3, equal unlabored respirations, skin warm/dry/pink. see triage notes. 21:27 Reassessment: Patient and/or family updated on plan of care and expected duration. Pain kd3 level reassessed. Patient is alert, oriented x 3, equal unlabored respirations, skin warm/dry/pink. Vital Signs: 20:06 BP 119 / 62; Pulse 80; Resp 17; Temp 98.2(O); Pulse Ox 98% ; Weight 76.2 kg; Height 5 kd3 ft. 7 in. (170.18 cm); Pain 0/10; 21:27 BP 106 / 53; Pulse 88; Resp 17; Pulse Ox 97% on R/A; kd3 22:26 BP 116 / 46 Supine; Pulse 81; Resp 20; Pulse Ox 98% on R/A; kd3 22:27 BP 130 / 63 Sitting; Pulse 86; Resp 19; Pulse Ox 98% on R/A; kd3 22:27 BP 123 / 65 Standing; Pulse 83; Resp 14; Pulse Ox 96% on R/A; kd3 02/15 02:40 BP 100 / 42; Pulse 80; Resp 16; Pulse Ox 99% on R/A; kd3 02/14 20:06 Body Mass Index 26.31 (76.20 kg, 170.18 cm) kd3 ED Course: 02/14 20:01 Patient arrived in ED. jj6 20:06 Inez Calixto, MICHELLE is Primary Nurse. kd3 20:11 Clifton Saenz PA is PHCP. lopez 20:11 Ravi Gutierrez MD is Attending Physician. dorotheam 20:12 Triage completed. kd3 20:12 Arm band placed on right wrist. kd3 20:16 Patient has correct armband on for positive identification. kd3 21:13 XRAY Chest (1 view) In Process Unspecified. EDMS 23:45 Ravi Gutierrez MD is Hospitalizing Provider. [facility] 23:45 Darvin Hoyt MD is Hospitalizing Provider. [facility] 02/15 08:11 No provider procedures requiring assistance completed. IV discontinued, intact, ll1 bleeding controlled, No redness/swelling at site. Pressure dressing applied. Administered Medications: No medications were administered Outcome: 02/14 23:46 Decision to Hospitalize by Provider. [facility] 02/15 08:10 Patient left the ED. ll1 08:11 Admitted to Tele family with patient. 1 08:11 Condition: stable 08:11 Instructed on the need for admit. Signatures: Dispatcher [employer] EDMS Clifton Saenz PA PA jmm Lewis, Lynsay, RN RN ll1 Fina Adamej6 Inez Calixto RN RN kd3 Corrections: (The following items were deleted from the chart) 02/14 22:51 22:27 BP 123 / 65 Standing; Pulse 23bpm; Resp 14bpm; Pulse Ox 96% RA; kd3 kd3
--- NOTE | 2022-02-14 23:46 | EDPHYS ---
Physician Documentation [facility] Name: Juan Miguel Aguilar Age: 76 yrs Sex: Male : 1945 Arrival Date: 02/14/2022 Time: 20: Bed 18 Private MD: ED Physician Ravi Gutierrez HPI: 02/13 20:19 This 76 yrs old Male presents to ER via EMS with complaints of Allergic Reaction. jmm 20:19 The patient presents with localized swelling. This is a 76-year-old male with history jmm of MDS that presents emerged department after a syncopal episode which occurred just prior to arrival. Patient was stung by a red wasp on the left side of his neck. Patient developed increased swelling. The states that the patient complained about changes in his vision and fell backwards and collapsed. Patient currently denies chest pain or shortness of breath. Denies swelling to his throat.. Historical: - Allergies: 02/14 20:12 Ibuprofen; kd3 - Home Meds: 20:12 aspirin 81 mg Oral tab 81 mg daily [Active]; Lipitor 10 mg Oral tab 1 tab once daily kd3 for hyperlipidemia [Active]; - PMHx: 20:12 cancer rbc; kd3 - PSHx: 20:12 None; kd3 - Immunization history:: Adult Immunizations up to date. - Social history:: Smoking status: unknown. ROS: 02/13 20:19 Constitutional: Negative for fever, chills, and weight loss, Cardiovascular: Negative jmm for chest pain, palpitations, and edema, Respiratory: Negative for shortness of breath, cough, wheezing, and pleuritic chest pain. Neuro: Positive for syncope. All other systems are negative. Exam: 20:19 Constitutional: This is a well developed, well nourished patient who is awake, alert, jmm and in no acute distress. Head/Face: atraumatic. Eyes: EOMI, no conjunctival erythema appreciated ENT: Moist Mucus Membranes Neck: Trachea midline, Supple Chest/axilla: Normal chest wall appearance and motion. Cardiovascular: Regular rate and rhythm. No edema appreciated Respiratory: Normal respirations, no respiratory distress appreciated Abdomen/GI: Non distended, soft Back: Normal ROM Skin: General appearance color normal MS/ Extremity: Moves all extremities, no obvious deformities appreciated, no edema noted to the lower extremities Neuro: Awake and alert Psych: Behavior is normal, Mood is normal, Patient is cooperative and pleasant Vital Signs: 02/14 20:06 BP 119 / 62; Pulse 80; Resp 17; Temp 98.2(O); Pulse Ox 98% ; Weight 76.2 kg; Height 5 kd3 ft. 7 in. (170.18 cm); Pain 0/10; 21:27 BP 106 / 53; Pulse 88; Resp 17; Pulse Ox 97% on R/A; kd3 22:26 BP 116 / 46 Supine; Pulse 81; Resp 20; Pulse Ox 98% on R/A; kd3 22:27 BP 130 / 63 Sitting; Pulse 86; Resp 19; Pulse Ox 98% on R/A; kd3 22:27 BP 123 / 65 Standing; Pulse 83; Resp 14; Pulse Ox 96% on R/A; 3 02/15 02:40 BP 100 / 42; Pulse 80; Resp 16; Pulse Ox 99% on R/A; 3 02/14 20:06 Body Mass Index 26.31 (76.20 kg, 170.18 cm) 3 MDM: 02/14 20:19 Patient medically screened. [facility] 23:44 Data reviewed: vital signs, nurses notes. Counseling: I had a detailed discussion with [facility] the patient and/or guardian regarding: the historical points, exam findings, and any diagnostic results supporting the discharge/admit diagnosis, lab results, the need for further work-up and treatment in the hospital. ED course: Patient's case was discussed with Dr. Gutierrez who will consult with Dr. Hoyt in the morning. 02/14 20:24 Order name: Basic Metabolic Panel; Complete Time: 21:00 [facility] 02/14 20:24 Order name: CBC with Diff; Complete Time: 12:06 [facility] 02/14 20:24 Order name: LFT's; Complete Time: 21:00 [facility] 02/14 20:24 Order name: Magnesium; Complete Time: 21:00 [facility] 02/14 20:24 Order name: NT PRO-BNP; Complete Time: 21:00 [facility] 02/14 20:24 Order name: PT-INR; Complete Time: 20:48 [facility] 02/14 20:24 Order name: Troponin HS; Complete Time: 21:00 [facility] 02/14 20:24 Order name: XRAY Chest (1 view); Complete Time: 21:28 [facility] 02/14 20:47 Order name: SARS-COV-2 RT PCR (Document "Date of Onset" if Symptomatic); Complete Time: [facility] 22:25 02/14 23:52 Order name: Basic Metabolic Panel [facility] 02/14 23:52 Order name: Basic Metabolic Panel; Complete Time: 12:06 [facility] 02/14 23:52 Order name: CBC with Automated Diff [facility] 02/14 23:52 Order name: CBC with Automated Diff; Complete Time: 12:06 [facility] 02/15 01:11 Order name: CBC Smear Scan; Complete Time: 12:06 [facility] 02/14 20:24 Order name: EKG; Complete Time: 20:25 [facility] 02/14 20:24 Order name: Cardiac monitoring; Complete Time: 20:37 [facility] 02/14 20:24 Order name: EKG - Nurse/Tech; Complete Time: 20:46 [facility] 02/14 20:24 Order name: IV Saline Lock; Complete Time: 20:37 [facility] 02/14 20:24 Order name: Labs collected and sent; Complete Time: 20:37 [facility] 02/14 20:24 Order name: O2 Per Protocol; Complete Time: 20:37 [facility] 02/14 20:24 Order name: O2 Sat Monitoring; Complete Time: 20:37 [facility] 02/14 23:52 Order name: Regular [facility] 02/14 23:52 Order name: EKG Electrocardiogram [facility] 02/14 23:52 Order name: EKG Electrocardiogram [facility] 02/14 23:52 Order name: EKG Electrocardiogram [facility] 02/14 23:52 Order name: EKG Electrocardiogram [facility] 02/14 23:52 Order name: EKG Electrocardiogram [facility] Administered Medications: No medications were administered Disposition Summary: 02/14/22 23:46 Hospitalization Ordered Hospitalization Status: Inpatient Admission jm Provider: Darvin Hoyt Condition: Stable jmm Problem: new jmm Symptoms: have improved jmm Bed/Room Type: Standard [facility] Location: [facility] ER HOLD(02/15/22 00:11) cg Room Assignment: ERHOLD-(02/15/22 00:11) cg Diagnosis - Syncope and Collapse jmm - Insect Envenomation jmm - Anemia jmm Forms: - Medication Reconciliation Form jmm - SBAR form jmm Signatures: Dispatcher [employer] Clifton Pierre PA PA jmm Garcia, Cindy, RN RN Inez Salcido RN RN kd3 Corrections: (The following items were deleted from the chart) 02/15 00:11 02/14 23:46 Telemetry/MedSurg (Inpatient) [facility] 02/15 00:11 02/14 23:46 [facility]
[2022-02-14] MEDS ORDERED: ONDANSETRON 4 MG/2 ML VIAL IV PRN (23:49)
[2022-02-15 01:10] LABS: Anisocytosis 1+; Blood Morphology Comment NOTED (NOT SEEN); Macrocytosis 1+; Platelet Estimate ADEQ; White Blood Cell Scan OK (OK)
[2022-02-15 02:50] VITALS: BMI 26.2
[2022-02-15 04:06] LABS: Absolute Lymphocytes (CBC) 0.4 K/uL (0.7-4.9); BUN Blood Urea Nitrogen 16 mg/dL (7-18); Bicarbonate 29 mmol/L (21-32); Glucose Level 155 mg/dL (74-106); Hematocrit 23.9 % (39.6-49.0); Lymphocytes % 17.1 % (15.3-44.8); Potassium 3.9 mmol/L (3.5-5.1); RBC Red Blood Cell Count 2.18 M/uL (4.33-5.43); Sodium Level 140 mmol/L (136-145)
[2022-02-15 06:17] VITALS: O2SAT 97
[2022-02-15 08:13] VITALS: BP 108/54; TEMP 98.8
--- NOTE | 2022-02-16 15:46 | HP ---
Date of Admission: 02/15/2022 Date of Discharge: 02/15/2022 Chief Complaint: Wasp bite and fainting episode. History Of Present Illness: This is a 76-year-old pleasant male patient who was outside his house working and there was a wasp nest and he saw a small wasp that actually ended up stinging him in his neck area and he did actually end up killing that wasp, but within short time after that, he told his that he was not feeling well. He felt little dizzy and sat down and within short time after that he was leaning backwards, eyes rolled backwards, and he became unresponsive when was trying to talk to him. called 911 and by the time the ambulance arrived, the patient was already awake and alert. He actually was able to get up and walk down few steps with EMS and came to emergency room. After he came to ER, he was admitted to the hospital. He denies any chest pain, shortness of breath, or any palpitation type of feeling. He had 1 episode of nausea and vomiting after EMS arrived at the scene. Denies any swelling of the neck or any swelling of the face. The patient reports that he has had a wasp sting in the past, but never had this kind of reaction before. Allergies: HE IS LISTED ALLERGIC TO IBUPROFEN CAUSING CHILLS. Medications: He takes aspirin 81 mg daily and atorvastatin 10 mg daily. Review of Systems: Cardiovascular: As mentioned above. GI: As mentioned above. Constitutional: As mentioned above. All other systems reviewed and negative. Past Medical History: Significant for impaired fasting glucose, hypertension, hyperlipidemia, gastroesophageal reflux disease, diverticulosis, benign prostatic hypertrophy, anemia, myelodysplastic syndrome, renal cyst. Past Surgical History: Vasectomy, knee surgery. Family History: Father had PA. Mother, hypertension. Sister with migraine. Social History: Negative for smoking and alcohol use. Physical Examination: Vital Signs: Temperature 98.2, pulse 68, respiratory rate 16, blood pressure 100/42, oxygen saturation 99% on room air. Height 5 feet 7 inches, weight 167 pounds. General: Awake, alert, oriented, not in distress. HEENT: Head atraumatic, normocephalic. Conjunctivae nonerythematous. Sclerae white. Mouth, no thrush or edema noted. Ears/Nose, no mass, lesion, discharge noted. Neck: Supple. No JVD, lymph nodes, bruit, thyromegaly noted. Lungs: Bilateral good equal air entry. Clear to auscultation. No rhonchi. No rales. Heart: Normal heart sounds, no murmur or gallop. Abdomen: Soft, bowel sounds normal. No guarding, rigidity, tenderness, mass, hepatosplenomegaly, distention, or bruit noted. Extremities: No leg edema. No calf tenderness. Skin: No rash, ulcer, cellulitis. Lymphatics: No lymph node enlargement in neck, supraclavicular, infraclavicular region. Neuro: No focal neurological deficit. Chest: Unremarkable. External Genitalia: Deferred. Rectal: Deferred. Labs: When he first came into the ER last night, white count 2.2, hemoglobin 8.2, platelets 159. This morning, white count 2.2, hemoglobin 8.1, and platelets 142. Last night, sodium 144, potassium 3.4, chloride 109, bicarb 30, BUN 17, creatinine 1.03, glucose 119. Liver function tests unremarkable. This morning, sodium 140, potassium 3.9, chloride 108, bicarb 29, BUN 16, creatinine 0.77, glucose 155. COVID-19 test negative. Chest x-ray, no acute cardiopulmonary changes. Hospital Course: After the patient was evaluated in the ER, he was admitted to the hospital. He remained in the emergency room. When I saw him this morning, his was with him at bedside. Denies any complaints. Medically, he is stable for discharge and there is no ongoing problem with any reaction after this wasp sting. I did talk to the patient and his that the best thing for him to do is take appropriate precautions to avoid any kind of wasp sting, avoiding certain activities in certain areas outside the house and the patient reports that he is simply not going to quit doing his activities outside the house, but he will try to be careful and I have advised him to carry EpiPen with him because of the concern about the reaction that he had this time. In the event of wasp sting, he should consider using EpiPen injection immediately and alert 911 system just because of the severity of the reaction he had. There is a good possibility that this time the patient probably had a drop in his blood pressure resulting into fainting type of episode. The patient was discharged to go home in stable condition. Discharge Medications And Instructions: 1. Continue all prior home medications. 2. Follow up at my office on , which is 02/18/2022. 3. Use EpiPen on emergency basis as suggested. Final Diagnoses: 1. Allergic reaction to wasp sting. 2. Syncope. 3. Hypertension. 4. Hyperlipidemia. 5. Impaired fasting glucose. 6. Myelodysplastic syndrome. 7. Anemia. 8. Leukocytopenia. 9. Benign prostatic hypertrophy. KERI/MODL Voice ID: [id number] [id number]
== END 2022-02-15 08:08 | disposition home health service (06) ==
LOC: ER 19:59 → ERHOLD 02-15 00:33 → INTOOBSV 02-15 00:33
PROVIDERS: ADMIT Internal Medicine; ATTEND Internal Medicine
DX: T63.461A Toxic effect of venom of wasps, accidental (unintentional), initial encounter (principal); R55 Syncope and collapse; Y92.008 Other place in unspecified non-institutional (private) residence as the place of occurrence of the external cause; I10 Essential (primary) hypertension; E78.5 Hyperlipidemia, unspecified; R73.01 Impaired fasting glucose; D46.9 Myelodysplastic syndrome, unspecified; D64.9 Anemia, unspecified; D72.819 Decreased white blood cell count, unspecified; N40.0 Benign prostatic hyperplasia without lower urinary tract symptoms; K21.9 Gastro-esophageal reflux disease without esophagitis; K57.90 Diverticulosis of intestine, part unspecified, without perforation or abscess without bleeding; N28.1 Cyst of kidney, acquired; Z20.822 Contact with and (suspected) exposure to COVID-19; Z79.82 Long term (current) use of aspirin; Z79.899 Other long term (current) drug therapy; Z88.8 Allergy status to other drugs, medicaments and biological substances; Z98.52 Vasectomy status; Z82.49 Family history of ischemic heart disease and other diseases of the circulatory system
CPT/HCPCS: 93005; 85025 ×2; 80048 ×2; 36415; 83735; 85610; 80076; 84484; 83880; 71045; 99285; U0003; G0378 ×2

== ENCOUNTER → 2023-05-13 | Day surgery (SDC) | payer OTHER ==
[~2023-05-13] MED LIST: NA CHLORIDE 0.9% 250 ML ONE
[2023-05-13 09:49] VITALS: BP 123/66; TEMP 98.1; O2SAT 98; BMI 23.1
[2023-05-13 13:32] LABS: Hematocrit 24.4 % (39.6-49.0)
== END ==
LOC: DS 08:40
PROVIDERS: ATTEND Internal Medicine Hematology & Oncology
DX: D46.9 Myelodysplastic syndrome, unspecified (principal); D64.9 Anemia, unspecified; E83.19 Other disorders of iron metabolism; D72.818 Other decreased white blood cell count
CPT/HCPCS: 36415; 86900; 86850; 86901; 86920; 85018; 85014; 36430; P9016; J7050

== ENCOUNTER 2023-06-07 07:04 | Day surgery (SDC) | payer OTHER ==
[2023-06-07] MEDS ORDERED: NA CHLORIDE 0.9% 250 ML ONE (08:02)
[2023-06-07 08:55] VITALS: O2SAT 99; BMI 23.1
[2023-06-07 12:55] VITALS: BP 127/60; TEMP 98.4
== END 2023-06-07 12:49 | disposition home or self-care (01) ==
LOC: DS 07:04
PROVIDERS: ATTEND Internal Medicine Hematology & Oncology
DX: D46.9 Myelodysplastic syndrome, unspecified (principal); E83.19 Other disorders of iron metabolism
CPT/HCPCS: 36415; 86900; 86850; 86901; 86920; 85018; 85014; 36430; P9016; J7050

== ENCOUNTER 2023-08-23 07:16 | Day surgery (SDC) | payer OTHER ==
[2023-08-23] MEDS ORDERED: NA CHLORIDE 0.9% 250 ML ONE (07:55)
[2023-08-23 12:37] LABS: Hematocrit 24.6 % (39.6-49.0)
[2023-08-23 14:20] VITALS: BMI 23.8
[2023-08-23 14:29] VITALS: BP 129/68; TEMP 98.7; O2SAT 99
== END 2023-08-23 12:35 | disposition home or self-care (01) ==
LOC: DS 07:16
PROVIDERS: ATTEND Internal Medicine Hematology & Oncology
DX: D64.9 Anemia, unspecified (principal); E83.19 Other disorders of iron metabolism; D72.818 Other decreased white blood cell count
CPT/HCPCS: 36415; 86900; 86850; 86901; 86920; 85018; 85014; 36430; P9016; J7050

== ENCOUNTER 2023-09-06 07:30 | Day surgery (SDC) | payer OTHER ==
[2023-09-06] MEDS ORDERED: NA CHLORIDE 0.9% 250 ML ONE (07:43)
[2023-09-06 11:43] VITALS: O2SAT 100
[2023-09-06 13:31] VITALS: BP 139/71; TEMP 97.5
== END 2023-09-06 13:15 | disposition home or self-care (01) ==
LOC: DS 07:30
PROVIDERS: ATTEND Internal Medicine Hematology & Oncology
DX: D46.9 Myelodysplastic syndrome, unspecified (principal); D64.9 Anemia, unspecified; I10 Essential (primary) hypertension; E83.19 Other disorders of iron metabolism; D72.818 Other decreased white blood cell count
CPT/HCPCS: 36415; 86900 ×2; 86850 ×2; 86901 ×2; 86920 ×2; 85018; 85014; 36430; P9016; J7050

== ENCOUNTER 2023-09-28 07:14 | Day surgery (SDC) | payer OTHER ==
[2023-09-28] MEDS ORDERED: NA CHLORIDE 0.9% 250 ML ONE (07:51)
[2023-09-28 09:31] VITALS: BMI 23.1
[2023-09-28 11:16] VITALS: O2SAT 100
[2023-09-28 11:19] VITALS: BP 130/66; TEMP 98.5
[2023-09-28 12:43] LABS: Hematocrit 23.5 % (39.6-49.0)
== END 2023-09-28 12:25 | disposition home or self-care (01) ==
LOC: DS 07:14
PROVIDERS: ATTEND Internal Medicine Hematology & Oncology
DX: D46.9 Myelodysplastic syndrome, unspecified (principal); D63.0 Anemia in neoplastic disease; E83.19 Other disorders of iron metabolism
CPT/HCPCS: 36430; 36415; 86900; 86850; 86901; 86920; 85018; 85014; P9016; J7050

== ENCOUNTER 2023-11-25 07:02 | Day surgery (SDC) | payer OTHER ==
[2023-11-25] MEDS ORDERED: NA CHLORIDE 0.9% 250 ML ONE (07:12)
[2023-11-25 08:28] VITALS: BMI 23.7
[2023-11-25 11:04] VITALS: BP 150/60; TEMP 97.8; O2SAT 98
[2023-11-25 13:10] LABS: Hematocrit 22.5 % (39.6-49.0)
== END 2023-11-25 12:46 | disposition home or self-care (01) ==
LOC: DS 07:02
PROVIDERS: ATTEND Internal Medicine Hematology & Oncology
DX: D46.9 Myelodysplastic syndrome, unspecified (principal); I82.453 Acute embolism and thrombosis of peroneal vein, bilateral
CPT/HCPCS: 36415; 86900; 86850; 86901; 86920; 85018; 85014; 36430; 96365; 96372; 96366; P9016; J7050

== ENCOUNTER 2023-12-07 07:04 | Day surgery (SDC) | payer OTHER ==
[2023-12-07] MEDS: NA CHLORIDE 0.9% 250 ML ONE (07:39)
[2023-12-07 08:21] VITALS: BP 118/55; TEMP 98.5; O2SAT 97; BMI 23.7
[2023-12-07 11:54] LABS: Hematocrit 19.9 % (39.6-49.0)
== END 2023-12-07 11:50 | disposition home or self-care (01) ==
LOC: DS 07:04
PROVIDERS: ATTEND Internal Medicine Hematology & Oncology
DX: D46.9 Myelodysplastic syndrome, unspecified (principal); I82.453 Acute embolism and thrombosis of peroneal vein, bilateral
CPT/HCPCS: 36415; 86900; 86850; 86901; 86920; 85018; 85014; 36430; P9016; J7050

== ENCOUNTER 2024-01-19 07:03 | Day surgery (SDC) | payer OTHER ==
[2024-01-19] MEDS ORDERED: NA CHLORIDE 0.9% 250 ML ONE (07:23)
[2024-01-19 08:56] VITALS: BP 117/60; TEMP 98.6; O2SAT 99; BMI 23.8
[2024-01-19 12:46] LABS: Hematocrit 24.5 % (39.6-49.0); Hemoglobin 8.1 g/dL (13.6-17.9)
== END 2024-01-19 12:36 | disposition home or self-care (01) ==
LOC: DS 07:03
PROVIDERS: ATTEND Internal Medicine Hematology & Oncology
DX: E83.19 Other disorders of iron metabolism (principal); I10 Essential (primary) hypertension; D46.9 Myelodysplastic syndrome, unspecified; I82.453 Acute embolism and thrombosis of peroneal vein, bilateral
CPT/HCPCS: 36415; 36430; 85014; 85018; 86850; 86900; 86901; 86920; J7050; P9016

== ENCOUNTER 2024-02-07 06:52 | Day surgery (SDC) | payer OTHER ==
[2024-02-07] MEDS: NA CHLORIDE 0.9% 500 ML ONE (07:38)
[2024-02-07 11:55] LABS: Hematocrit 24.8 % (39.6-49.0); Hemoglobin 8.4 g/dL (13.6-17.9)
[2024-02-07 12:22] VITALS: BP 109/57; TEMP 99.1; O2SAT 98; BMI 23.8
== END 2024-02-07 11:47 | disposition home or self-care (01) ==
LOC: DS 06:52
PROVIDERS: ATTEND Internal Medicine Hematology & Oncology
DX: E83.19 Other disorders of iron metabolism (principal); D64.9 Anemia, unspecified; I10 Essential (primary) hypertension; I82.453 Acute embolism and thrombosis of peroneal vein, bilateral
CPT/HCPCS: 36415; 86900; 86850; 86901; 86920; 85018; 85014; 36430; 96365; 96366; P9016; J7040

== ENCOUNTER 2024-04-03 07:18 | Day surgery (SDC) | payer OTHER ==
[2024-04-03] MEDS ORDERED: NA CHLORIDE 0.9% 500 ML ONE (07:40)
[2024-04-03 09:19] VITALS: BMI 24.3
[2024-04-03 12:46] LABS: Hemoglobin 7.3 g/dL (13.6-17.9)
[2024-04-03 14:01] VITALS: BP 104/48; TEMP 99; O2SAT 96
== END 2024-04-03 12:30 | disposition home or self-care (01) ==
LOC: DS 07:18
PROVIDERS: ATTEND Internal Medicine Hematology & Oncology
DX: D46.9 Myelodysplastic syndrome, unspecified (principal); I82.453 Acute embolism and thrombosis of peroneal vein, bilateral
CPT/HCPCS: 36415; 86900; 86850; 86901; 86920; 85018; 85014; 36430; P9016; J7040

== ENCOUNTER 2024-06-08 07:05 | Day surgery (SDC) | payer OTHER ==
[2024-06-08] MEDS ORDERED: NA CHLORIDE 0.9% 0 ML ONE (07:16)
[2024-06-08] MEDS ORDERED: NA CHLORIDE 0.9% 250 ML ONE (07:17)
[2024-06-08 11:12] VITALS: TEMP 98.8; O2SAT 98; BMI 23.8
[2024-06-08 11:19] VITALS: BP 112/72
[2024-06-08 12:47] LABS: Hematocrit 22.2 % (39.6-49.0); Hemoglobin 7.4 g/dL (13.6-17.9)
== END 2024-06-08 12:40 | disposition home or self-care (01) ==
LOC: DS 07:05
PROVIDERS: ATTEND Internal Medicine Hematology & Oncology
DX: D46.9 Myelodysplastic syndrome, unspecified (principal); I82.453 Acute embolism and thrombosis of peroneal vein, bilateral
CPT/HCPCS: 36415; 86900; 86850; 86901; 86920; 85018; 85014; 36430; P9016; J7050; J7040

== ENCOUNTER 2024-07-04 07:31 | Day surgery (SDC) | payer OTHER ==
[2024-07-04] MEDS ORDERED: NA CHLORIDE 0.9% 250 ML ONE (07:47)
[2024-07-04 08:55] VITALS: BMI 23.8
[2024-07-04 11:45] VITALS: BP 121/58; TEMP 98.1; O2SAT 99
[2024-07-04 12:51] LABS: Hematocrit 23.2 % (39.6-49.0); Hemoglobin 7.9 g/dL (13.6-17.9)
== END 2024-07-04 12:38 | disposition home or self-care (01) ==
LOC: DS 07:31
PROVIDERS: ATTEND Internal Medicine
DX: E83.19 Other disorders of iron metabolism (principal); I10 Essential (primary) hypertension; D46.9 Myelodysplastic syndrome, unspecified; D72.818 Other decreased white blood cell count; I82.453 Acute embolism and thrombosis of peroneal vein, bilateral
CPT/HCPCS: 36415; 36430; 85014; 85018; 86850; 86900; 86901; 86920; J7050; P9016

== ENCOUNTER 2024-07-26 07:18 | Day surgery (SDC) | payer OTHER ==
[2024-07-26] MEDS ORDERED: NA CHLORIDE 0.9% 250 ML ONE (08:00)
[2024-07-26 08:42] VITALS: BMI 23.7
[2024-07-26 13:04] LABS: Hematocrit 21.8 % (39.6-49.0); Hemoglobin 7.2 g/dL (13.6-17.9)
[2024-07-26 13:22] VITALS: BP 112/55; TEMP 99; O2SAT 100
== END 2024-07-26 12:55 | disposition home or self-care (01) ==
LOC: DS 07:18
PROVIDERS: ATTEND Internal Medicine
DX: D64.9 Anemia, unspecified (principal); E83.19 Other disorders of iron metabolism; I10 Essential (primary) hypertension; I82.453 Acute embolism and thrombosis of peroneal vein, bilateral
CPT/HCPCS: 36415; 86900; 86850; 86901; 86920; 85018; 85014; 36430; P9016; J7050

== ENCOUNTER → 2024-08-23 | Day surgery (SDC) | payer OTHER ==
[2024-08-23 09:18] VITALS: BP 139/51; TEMP 99.1; O2SAT 97; BMI 23.8
[2024-08-23 13:06] LABS: Hematocrit 24.1 % (39.6-49.0); Hemoglobin 8.2 g/dL (13.6-17.9)
== END ==
LOC: DS 07:23
PROVIDERS: ATTEND Internal Medicine
DX: E83.19 Other disorders of iron metabolism (principal); I10 Essential (primary) hypertension; D46.9 Myelodysplastic syndrome, unspecified; I82.453 Acute embolism and thrombosis of peroneal vein, bilateral
CPT/HCPCS: 36415; 86900; 86850; 86901; 86920; 85018; 85014; 36430; P9016; J7050

== ENCOUNTER 2024-09-06 07:22 | Day surgery (SDC) | payer OTHER ==
[2024-09-06] MEDS ORDERED: NA CHLORIDE 0.9% 250 ML ONE (07:45)
[2024-09-06 08:41] VITALS: O2SAT 97
[2024-09-06 08:45] VITALS: BMI 23.3
[2024-09-06 13:00] LABS: Hematocrit 23.4 % (39.6-49.0); Hemoglobin 7.8 g/dL (13.6-17.9)
[2024-09-06 13:02] VITALS: BP 116/58; TEMP 98.2
== END 2024-09-06 12:40 | disposition home or self-care (01) ==
LOC: DS 07:22
PROVIDERS: ATTEND Internal Medicine
DX: D46.9 Myelodysplastic syndrome, unspecified (principal); I10 Essential (primary) hypertension; I82.453 Acute embolism and thrombosis of peroneal vein, bilateral
CPT/HCPCS: 36415; 86900; 86850; 86901; 86920; 85018; 85014; 36430; P9016; J7050

== ENCOUNTER 2024-10-04 07:12 | Day surgery (SDC) | payer OTHER ==
[2024-10-04] MEDS ORDERED: NA CHLORIDE 0.9% 250 ML ONE (08:11)
[2024-10-04 09:16] VITALS: BP 107/25; TEMP 98.5; O2SAT 97; BMI 22.6
[2024-10-04 12:27] LABS: Hematocrit 21.3 % (39.6-49.0); Hemoglobin 7.2 g/dL (13.6-17.9)
== END 2024-10-04 12:20 | disposition home or self-care (01) ==
LOC: DS 07:12
PROVIDERS: ATTEND Internal Medicine
DX: D46.9 Myelodysplastic syndrome, unspecified (principal); E83.19 Other disorders of iron metabolism; I10 Essential (primary) hypertension; I82.453 Acute embolism and thrombosis of peroneal vein, bilateral
CPT/HCPCS: 36415; 86900; 86850; 86901; 86920; 85018; 85014; 36430; P9016; J7050

== ENCOUNTER 2024-10-09 09:31 | Emergency (ER) | payer OTHER ==
--- OUTSIDE RECORDS SUMMARY | 2024-10-09 09:35 | XMS REPORT | Clinical Summary ---
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 ADJUNCT PROFESSOR OF VOICE Myelodysplastic syndrome, not otherwise specified ALANINE AMINOTRANSFERASE Routine 024 7:41 AM ADJUNCT PROFESSOR OF VOICE Myelodysplastic syndrome, not otherwise specified LACTATE DEHYDROGENASE Routine 10/25/2023 7:41 AM ADJUNCT PROFESSOR OF VOICE Myelodysplastic syndrome, not otherwise specified ALKALINE PHOSPHATASE Routine 10/25/2023 7:41 AM ADJUNCT PROFESSOR OF VOICE Myelodysplastic syndrome, not otherwise specified FRACTIONATED BILIRUBIN Routine 7:41 AM ADJUNCT PROFESSOR OF VOICE Myelodysplastic syndrome, not otherwise specified URIC ACID Routine 10/25/2023 7:41 AM ADJUNCT PROFESSOR OF VOICE Myelodysplastic syndrome, not otherwise specified CREATININE Routine 10/25/2023 7:41 AM ADJUNCT PROFESSOR OF VOICE Myelodysplastic syndrome, not otherwise specified BLOOD UREA NITROGEN Routine 10/25/2023 7 :41 AM ADJUNCT PROFESSOR OF VOICE Myelodysplastic syndrome, not otherwise specified GLUCOSE, RANDOM Routine 10/25/2023 7:41 AM ADJUNCT PROFESSOR OF VOICE Myelodysplastic syndrome, not otherwise specified PHOSPHORUS LEVEL Routine 10/25/2023 7:41 AM ADJUNCT PROFESSOR OF VOICE Myelodysplastic syndrome, not otherwise specified CALCIUM LEVEL Routine 10/25/2023 7:41 AM ADJUNCT PROFESSOR OF VOICE Myelodysplastic syndrome, not otherwise specified ALBUMIN LEVEL Routine 10/25/2023 7:41 AM ADJUNCT PROFESSOR OF VOICE Myelodysplastic syndrome, not otherwise specified TOTAL PROTEIN Routine 10/25/2023 7:41 AM ADJUNCT PROFESSOR OF VOICE Myelodysplastic syndrome, not otherwise specified PREPARE RBC Routine 10/24/2023 12:26 PM ADJUNCT PROFESSOR OF VOICE after 10/10/2023 Results * Transfuse RBC:Transfusion Date: 08/02/2024 (08/02/2024 6:48 PM CDT) Only the most recent of6 resultswithin the time period is included. Elsie NUÑEZ BLOOD TRANSFUSION ORDERABLES F inal Result * Prepare RBC:ATC-main, 1 Units (08/02/2024 10:34 AM CDT) Only the most recent of5 resultswithin the time period is included. Product Code [id number] [facility] Product Code Text Red Blood Cells [facility] QTY Ordered 1 [facility] Dispense Status Transfused [facility] Unit Expiration [id number] [facility] Unit Number [id number] [facility] Unit Blood Type A+ [facility] Bag Volume 393 [facility] XM Interpretation Compatible U T [facility] Unit Blood Type Barcode 6200 [facility] PRBC Product Ready For Structural Steel Erection Supervisor B2 Blood Bank [facility] RBC Product Status 1 RBC approved [facility] Comment:Order Form 03 when r rabia for product issue. Blood Elsie NUÑEZ BLOOD BANK PRODUCT ORDERABLES Final Result [facility] [address] [place] [address] * Glucose, Random (08/02/2024 9:37 AM CDT) Only the most recent of4 resultswithin the time period is included. Glucose Random 103 70 - 199 mg/dL 08/02/2024 10:37 AM CDT [facility] Blood Peripheral blood specimen / Unknown Venipuncture / Unknown 08/02/2024 9:37 AM CDT 08/02/2024 9:50 AM CDT Narrative [facility] - 08/02/2024 10:37 AM CDT Effective 05/12/16, the glucose reference intervals have been updated based on [place] [employer] guidelines (Standards of Medical Care in Diabetes 2016. Diabetes Care 2016; 39: S13-S22). Fasting blood glucose: Normal: 70-99 mg/dL Impaired fasting glucose (increased risk for diabetes or pre-diabetes): 100-125 mg/dL Diabetes mellitus: >/=126 mg/dL Random blood glucose: Normal: 70-199 mg/dL Note: Random glucose >100 mg/dL is associated with increased risk for diabetes Desiree Guthrie APRN LAB BLOOD ORDERABLES F inal Result [facility] Unless otherwise noted, all lab tests performed by: Division of Pathology and Laboratory Medicine [address] [place] [phone] * (ABNORMAL) .CBC (08/02/2024 9:37 AM CDT) Only the most recent of5 resultswithin the time period is included. White Blood Cell 3.1(L) 4.1 - 10.5 K/uL 08/02/2024 10:16 AM CDT [facility] Red Blood Cell 2.22(L) 4.30 - 6.04 M/uL 08/02/2024 10:16 AM CDT [facility] Hemoglobin 7.1(L) 13.3 - 17.4 g/dL 08/02/2024 10:16 AM CDT [facility] Hematocrit 22.1(L) 39.5 - 51.8 % 08/02/2024 10:16 AM CDT [facility] Mean Cell Volume 100(H) 82 - 99 fL 08/02/2024 10:16 AM CDT [facility] Mean Cell Hemoglobin 32.0 26.6 - 33.2 pg 08/02/2024 10:16 AM CDT [facility] Mean Cell Hemoglobin Concentration 32.1 31.1 - 35.2 g/dL 08/02/2024 10:16 AM CDT [facility] RDW-SD 99.1(H) 37.5 - 49.7 fL 08/02/2024 10:16 AM T [facility] Red Cell Diameter Width 29.2(H) 11.6 - 15.5 % 08/02/2024 10:16 AM T [facility] Platelet 151(L) 160 - 397 K/uL 08/02/2024 10:16 AM T [facility] Mean Platelet Volume 08/02/2024 10:16 AM T [facility] Comment:Result Not Measured INRBC 0.0 0.0 - 0.1 /100 WBC 08/02/2024 10:16 AM [facility] Comment: The INRBC (instrument NRBC) value reflects the enumeration of nucleated red blood cells contained in a 200uL sample of whole blood analyzed by the instrument. This value may differ from the NRBC value reported in a manual differential, which is based on a 100 cell differential. Neutrophil % 48.4 43.2 - 72.7 % 08/02/2024 10:16 AM CDT [facility] Lymphocyte % 30.4 16.8 - 46.2 % 08/02/2024 10:16 AM T [facility] Monocyte % 16.0(H) 5.1 - 12.5 % 08/02/2024 10:16 AM [facility] Eosinophil % 3.9 0.4 - 6.3 % 08/02/2024 10:16 AM T [facility] Basophil % 1.0 0.2 - 1.4 % 08/02/2024 10:16 AM T [facility] IGRE % 0.3 0.1 - 1.5 % 08/02/2024 10:16 AM T [facility] Comment:The IGRE% includes M etamyelocytes, Myelocytes and Promyelocytes. Neutrophil Abs 1.48(L) 1.95 - 7.25 K/uL 08/02/2024 10:16 AM CDT [facility] Lymphocyte Abs 0.93(L) 1.01 - 3.24 K/uL 08/02/2024 10:16 AM T [facility] Monocyte Abs 0.49 0.24 - 0.85 K/uL 08/02/2024 10:16 AM CDT [facility] Eosinophil Abs 0.12 0.02 - 0.50 K/uL 08/02/2024 10:16 AM CDT [facility] Basophil Abs 0.03 0.02 - 0.09 K/uL 08/02/2024 10:16 AM CDT [facility] IG Abs 0.01 0.01 - 0.12 K/uL 08/02/2024 10:16 AM CDT [facility] Blood Peripheral blood specimen / Unknown Venipuncture / Unknown 08/02/2024 9:37 AM CDT 08/02/2024 9:48 AM CDT Lennysumanth Darvin Jerri ELECTRONICS PRODUCTION SUPERVISOR LAB BLOOD ORDERABLES F inal Result [facility] Unless otherwise noted, all lab tests performed by: Division of Pathology and Laboratory Medicine [address] [place] [phone] * (ABNORMAL) Fractionated Bilirubin (08/02/2024 9:37 AM CDT) Only the most recent of5 resultswithin the time period is included. Bilirubin Direct 0.2 0.0 - 0.3 mg/dL 08/02/2024 10:37 AM CDT [facility] Comment:Indocyanine Green (I CG) may cause falsely elevated bilirubin results. Total and direct bilirubin must not be measured from samples containing indocyanine green. Bilirubin Indirect 1.2(H) 0.0 - 0.9 mg/dL 08/02/2024 10:37 AM CDT [facility] Bilirubin Total 1.4(H) 0.0 - 1.2 mg/dL 08/02/2024 10:37 AM CDT [facility] Comment:Indocyanine Green (I CG) may cause falsely elevated bilirubin results. Total and direct bilirubin must not be measured from samples containing indocyanine green. False elevation of total bilirubin can be seen in patients with IgG concentrations above 28 g/L. Blood Peripheral blood specimen / Unknown Venipuncture / Unknown 08/02/2024 9:37 AM CDT 08/02/2024 9:50 AM CDT Desiree Guthrie ELECTRONICS PRODUCTION SUPERVISOR LAB BLOOD ORDERABLES F inal Result [facility] [place] Unless otherwise noted, all lab tests performed by: Division of Pathology and Laboratory Medicine [address] [place] [phone] * Type and Screen (08/02/2024 9:37 AM CDT) Only the most recent of5 resultswithin the time period is included. ABORh A POS 08/02/2024 9:34 AM CDT [facility] ABSC Negative 08/02/2024 9:34 AM CDT [facility] Clot Expiration 08/05/2024 23:59 08/02/2024 9:34 AM CDT [facility] Historical Record Check Complete 08/02/2024 9:34 AM CDT [facility] Blood Peripheral blood specimen / Unknown Venipuncture / Unknown 08/02/2024 9:37 AM CDT 08/02/2024 11:12 AM CDT Desiree Guthrie ELECTRONICS PRODUCTION SUPERVISOR BLOOD BANK TEST ORDERA BLES Final Result [facility] [address] [place] [address] [id number] [place] [address] * Uric Acid (08/02/2024 9:37 AM CDT) Only the most recent of5 resultswithin the time period is included. Uric Acid 4.4 3.4 - 7.0 mg/dL 08/02/2024 10:37 AM CDT [facility] [place] Blood Peripheral blood specimen / Unknown Venipuncture / Unknown 08/02/2024 9:37 AM CDT 08/02/2024 9:50 AM CDT us Wengrid A Jerri ELECTRONICS PRODUCTION SUPERVISOR LAB BLOOD ORDERABLES F inal Result Performing Organization Address City/[facility] Co de Phone Number [facility] Unless otherwise noted, all lab tests performed by: Division of Pathology and Laboratory Medicine [address] [place] [id number] * BUN (08/02/2024 9:37 AM CDT) Only the most recent of5 resultswithin the time period is included. BUN 16 6 - 23 mg/dL 08/02/2024 10:37 AM CDT [facility] Blood Peripheral blood specimen / Unknown Venipuncture / Unknown 08/02/2024 9:37 AM CDT 08/02/2024 9:50 AM CDT Wengrid A Jerri ELECTRONICS PRODUCTION SUPERVISOR LAB BLOOD ORDERABLES F inal Result Performing Organization Address [facility] de Phone Number [facility] Unless otherwise noted, all lab tests performed by: Division of Pathology and Laboratory Medicine [address] [place] [phone] * Alanine Aminotransferase (08/02/2024 9:37 AM CDT) Only the most recent of5 resultswithin the time period is included. Pathologist [facility] ALT 28 <=41 U/L 08/02/2024 10:37 AM CDT [facility] Blood Peripheral blood specimen / Unknown Venipuncture / Unknown 08/02/2024 9:37 AM CDT 08/02/2024 9:50 AM CDT Wengrid A Jerri ELECTRONICS PRODUCTION SUPERVISOR LAB BLOOD ORDERABLES F inal Result Performing Organization Address City/[facility] Co de Phone Number [facility] Unless otherwise noted, all lab tests performed by: Division of Pathology and Laboratory Medicine [address] [place] [phone] * Aspartate Aminotransferase (08/02/2024 9:37 AM CDT) Only the most recent of5 resultswithin the time period is included. AST 22 <=40 U/L 08/02/2024 10:37 AM CDT [facility] Blood Peripheral blood specimen / Unknown Venipuncture / Unknown 08/02/2024 9:37 AM CDT 08/02/2024 9:50 AM CDT Desiree A Jerri ELECTRONICS PRODUCTION SUPERVISOR LAB BLOOD ORDERABLES F inal Result Performing Organization Address City/[facility] de Phone Number [facility] Unless otherwise noted, all lab tests performed by: Division of Pathology and Laboratory Medicine [address] [place] [id number] * Total Protein (08/02/2024 9:37 AM CDT) Only the most recent of5 resultswithin the time period is included. Pathologist [facility] Tot Protein 6.6 6.4 - 8.3 gm/dL 08/02/2024 10:37 AM CDT [facility] Blood Peripheral blood specimen / Unknown Venipuncture / Unknown 08/02/2024 9:37 AM CDT 08/02/2024 9:50 AM CDT Narrative [facility] - 08/02/2024 10:37 AM CDT Reference range established based on adult population Desiree A Jerri ELECTRONICS PRODUCTION SUPERVISOR LAB BLOOD ORDERABLES F inal Result Performing Organization Address City/[facility] Co de Phone Number [facility] Unless otherwise noted, all lab tests performed by: Division of Pathology and Laboratory Medicine [address] [place] [phone] * Phosphorus Level (08/02/2024 9:37 AM CDT) Only the most recent of4 resultswithin the time period is included. Pathologist [facility] Phosphorus Level 3.7 2.5 - 4.5 mg/dL 08/02/2024 10:37 AM CDT [facility] Blood Peripheral blood specimen / Unknown Venipuncture / Unknown 08/02/2024 9:37 AM CDT 08/02/2024 9:50 AM CDT us Lennyngrid A Jerri ELECTRONICS PRODUCTION SUPERVISOR LAB BLOOD ORDERABLES F inal Result Performing Organization Address City/[facility]/ZIP Co de Phone Number [facility] Unless otherwise noted, all lab tests performed by: Division of Pathology and Laboratory Medicine [address] [place] [phone] * Alkaline Phosphatase (08/02/2024 9:37 AM CDT) Only the most recent of5 resultswithin the time period is included. Alkaline Phosphatase 51 40 - 129 U/L 08/02/2024 10:37 AM CDT [facility] Blood Peripheral blood specimen / Unknown Venipuncture / Unknown 08/02/2024 9:37 AM CDT 08/02/2024 9:50 AM CDT us Wengrid A Jerri ELECTRONICS PRODUCTION SUPERVISOR LAB BLOOD ORDERABLES F inal Result Performing Organization Address [facility] Co de Phone Number [facility] Unless otherwise noted, all lab tests performed by: Division of Pathology and Laboratory Medicine [address] [place] [phone] * Magnesium Level (08/02/2024 9:37 AM CDT) Only the most recent of4 resultswithin the time period is included. Magnesium Level 1.8 1.6 - 2.6 mg/dL 08/02/2024 10:37 AM CDT [facility] Blood Peripheral blood specimen / Unknown Venipuncture / Unknown 08/02/2024 9:37 AM CDT 08/02/2024 9:50 AM CDT us Lennyngrid A Jerri ELECTRONICS PRODUCTION SUPERVISOR LAB BLOOD ORDERABLES F inal Result Performing Organization Address City/[facility] Co de Phone Number [facility] Unless otherwise noted, all lab tests performed by: Division of Pathology and Laboratory Medicine [address] [place] [id number] * LDH (08/02/2024 9:37 AM CDT) Only the most recent of5 resultswithin the time period is included. LDH 183 135 - 225 U/L 08/02/2024 10:38 AM CDT [facility] Blood Peripheral blood specimen / Unknown Venipuncture / Unknown 08/02/2024 9:37 AM CDT 08/02/2024 9:51 AM CDT Narrative [facility] - 08/02/2024 10:38 AM CDT Results greater than 1651 U/L may not be reliable due to matrix effect with extended dilution as it exceeds the service delivery director's recommended limit. Caution should be exercised when interpreting such values and done in conjunction with clinical context. us Desiree Guthrie APRN LAB BLOOD ORDERABLES F inal Result [facility] Unless otherwise noted, all lab tests performed by: Division of Pathology and Laboratory Medicine [address] [place] [phone] * Creatinine (08/02/2024 9:37 AM CDT) Only the most recent of5 resultswithin the time period is included. Creatinine 0.71 0.67 - 1.17 mg/dL 08/02/2024 10:37 AM CDT [facility] eGFR 93 >=60 mL/min/1.7 3 sq. m 08/02/2024 10:37 AM CDT [facility] Comment: The eGFRcr is calculated with the 2020 CKD-EPI creatinine equation using creatinine, patient's age, and sex for adults 18 years of age and older. Other factors, especially muscle mass, may affect accuracy and need to be considered. According to the Kidney Disease: Improving Global Outcomes (KDIGO) CKD Work Group 2012 Clinical Practice Guideline, chronic kidney disease (CKD) is defined as the abnormalities of kidney structure or function, present for more than 3 months, with implications for health. CKD should be classified by cause, GFR category, and albuminuria category. KDIGO guidelines provide the following GFR categories. Stage / Description / GFR mL/min/1.73 m2: G1* / Normal or high / >= 90 G2* / Mildly decreased / 60-89 G3a / Mildly to moderately decreased / 45-59 G3b / Moderately to severely decreased / 30-44 G4 / Severely decreased / 15-29 G5 / Kidney failure / <15 *In the absence of evidence of kidney damage, neither G1 nor G2 fulfill criteria for CKD. Blood Peripheral blood specimen / Unknown Venipuncture / Unknown 08/02/2024 9:37 AM CDT 08/02/2024 9:50 AM CDT Desiree Guthrie [employer]LECTRONICS PRODUCTION SUPERVISOR LAB BLOOD ORDERABLES F inal Result Performing Organization Address City/[facility]/ZIP Co de Phone Number [facility] Unless otherwise noted, all lab tests performed by: Division of Pathology and Laboratory Medicine [address] [place] [phone] * Calcium Level (08/02/2024 9:37 AM CDT) Only the most recent of4 resultswithin the time period is included. Calcium Level Total 9.7 8.2 - 10.2 mg/dL 08/02/2024 10:37 AM CDT [facility] Blood Peripheral blood specimen / Unknown Venipuncture / Unknown 08/02/2024 9:37 AM CDT 08/02/2024 9:50 AM CDT Desiree Guthrie ELECTRONICS PRODUCTION SUPERVISOR LAB BLOOD ORDERABLES F inal Result Performing Organization Address City/[facility] Co de Phone Number [facility] Unless otherwise noted, all lab tests performed by: Division of Pathology and Laboratory Medicine [address] [place] [id number] * Albumin Level (08/02/2024 9:37 AM CDT) Only the most recent of5 resultswithin the time period is included. Albumin Level 4.4 3.5 - 5.2 gm/dL 08/02/2024 10:37 AM CDT [facility] Blood Peripheral blood specimen / Unknown Venipuncture / Unknown 08/02/2024 9:37 AM CDT 08/02/2024 9:50 AM CDT Desiree A Jerri ELECTRONICS PRODUCTION SUPERVISOR LAB BLOOD ORDERABLES F inal Result Performing Organization Address City/[facility] Co de Phone Number [facility] Unless otherwise noted, all lab tests performed by: Division of Pathology and Laboratory Medicine [address] [place], [place] [id number] * (ABNORMAL) Electrolyte Panel (08/02/2024 9:37 AM CDT) Only the most recent of5 resultswithin the time period is included. Pathologist [facility] Sodium Level 141 136 - 145 mmol/L 08/02/2024 10:37 AM CDT [facility] Potassium Level 4.2 3.4 - 4.5 mmol/L 08/02/2024 10:37 AM CDT [facility] Chloride 103 98 - 107 mmol/L 08/02/2024 10:37 AM CDT [facility] CO2 30(H) 22 - 29 mmol/L 08/02/2024 10:37 AM CDT [facility] Anion Gap 8 4 - 14 mmol/L 08/02/2024 10:37 AM CDT [facility] Blood Peripheral blood specimen / Unknown Venipuncture / Unknown 08/02/2024 9:37 AM CDT 08/02/2024 9:50 AM CDT Desiree A Jerri ELECTRONICS PRODUCTION SUPERVISOR LAB BLOOD ORDERABLES F inal Result Performing Organization Address City/[facility] Co de Phone Number [facility] Unless otherwise noted, all lab tests performed by: Division of Pathology and Laboratory Medicine [address] [place] [phone] * (ABNORMAL) Differential (05/01/2024 11:52 AM CDT) Only the most recent of3 resultswithin the time period is included. Pathologist [facility] Total Cells 115 05/01/2024 2:05 PM CDT [facility] Manual Neutrophil % 64.0 43.2 - 72.7 % 05/01/2024 2:05 PM CDT [facility] Comment:The Neutrophil count includes Bands. Manual Lymphocyte % 26.0 16.8 - 46.2 % 05/01/2024 2:05 PM CDT [facility] Manual Monocyte % 4.0(L) 5.1 - 12.5 % 05/01/2024 2:05 PM CDT [facility] Manual Eosinophil % 3.0 0.4 - 6.3 % 05/01/2024 2:05 PM CDT [facility] Manual Basophil % 3.0(H) 0.2 - 1.4 % 05/01/2024 2:05 PM CDT [facility] Metamyelocyte % 2:05 PM CDT [facility] Comment:The Metamyelocyte co unt includes Myelocytes. Manual Neutrophil Abs 2.43 1.95 - 7.25 K/uL 05/01/2024 2:05 PM CDT [facility] Manual Lymphocyte Abs 0.99(L) 1.01 - 3.24 K/uL 05/01/2024 2:05 PM CDT [facility] Manual Monocyte Abs 0.15(L) 0.24 - 0.85 K/uL 05/01/2024 2:05 PM CDT [facility] Manual Eosinophil Abs 0.11 0.02 - 0.50 K/uL 05/01/2024 2:05 PM CDT [facility] Manual Basophil Abs 0.11(H) 0.02 - 0.09 K/uL 05/01/2024 2:05 PM CDT [facility] RBC Morphology PRESENT 05/01/2024 2:05 PM CDT [facility] PLT Morph Normal Normal 05/01/2024 2:05 PM CDT [facility] Schistocyte Few 05/01/2024 2:05 PM CDT [facility] Anisocytosis Present(A) (none) 05/01/2024 2:05 PM CDT [facility] Poikilocytosis Present(A) (none) 05/01/2024 2:05 PM CDT [facility] Ovalocyte Present(A) (none) 05/01/2024 2:05 PM CDT [facility] Tear Drop Present(A) (none) 05/01/2024 2:05 PM CDT [facility] Microcyte Present(A) (none) 05/01/2024 2:05 PM CDT [facility] Slide Comment SEE NOTE 05/01/2024 2:05 PM CDT [facility] Comment:PLT: Platelet morpho logy normal Blood Peripheral blood specimen / Unknown Venipuncture / Unknown 05/01/2024 11:52 AM CDT 05/01/2024 11:59 AM CDT us Mali Hughes APRN LAB BLOOD ORDERABLES Final Re sult [facility] Unless otherwise noted, all lab tests performed by: Division of Pathology and Laboratory Medicine [address] [place] [id number] * US Leg Venous Doppler Bilateral (11/03/2023 4:25 PM ADJUNCT PROFESSOR OF VOICE) Anatomical Region Laterality Modality Leg, Extremity Ultrasound 11/03/2023 4:32 PM ADJUNCT PROFESSOR OF VOICE Impressions 11/03/2023 4:43 PM ADJUNCT PROFESSOR OF VOICE Deep venous thrombosis seen bilaterally involving the peroneal veins. Findings discussed with Mali Hughes APRN via telephone at 11/03/2023 4:30 PM by Can Mcclain MD. ACTIONABLE ITEMS/RECOMMENDATIONS: See Impression I personally reviewed these image(s) along with the resident's/fellow's interpretations, certify that if a procedure was performed I was physically present, and agree with the final report. Narrative 11/03/2023 4:43 PM ADJUNCT PROFESSOR OF VOICE Examination: US LEG VENOUS DOPPLER BILATERAL on 11/03/2023 4:25 PM. Clinical History: Myelodysplastic syndrome, not otherwise specified Bilateral lower limb edema. Indication: Edema, BLE edema, normal ECHO. Comparison: None available. TECHNIQUE: Grayscale and color/spectral Doppler ultrasound of the bilateral lower extremity veins. FINDINGS: In the left lower extremity, there is noncompressibility of the peroneal vein. There is normal compressibility and spontaneous flow within the common femoral vein and its junction with the greater saphenous vein, femoral vein and its junction with the deep femoral vein, and popliteal vein. Visualized segments of the anterior and posterior tibial veins are patent. In the right lower extremity, there is noncompressibility of the peroneal vein. There is normal compressibility and spontaneous flow within the common femoral vein and its junction with the greater saphenous vein, femoral vein and its junction with the deep femoral vein, and popliteal vein. Visualized segments of the anterior and posterior tibial veins are patent. Procedure Note Herbert Maloney MD - 11/03/2023 Examination: US LEG VENOUS DOPPLER BILATERAL on 11/03/2023 4:25 PM. Clinical History: Myelodysplastic syndrome, not otherwise specified Bilateral lower limb edema. Indication: Edema, BLE edema, normal ECHO. Comparison: None available. TECHNIQUE: Grayscale and color/spectral Doppler ultrasound of thebilateral lower extremity veins. FINDINGS: In the left lower extremity, there is noncompressibility of the peronealvein. There is normal compressibility and spontaneous flow within thecommon femoral vein and its junction with the greater saphenous vein,femoral vein and its junction with the deep femoral vein, and poplitealvein. Visualized segments of the anterior and posterior tibial veins arepatent. In the right lower extremity, there is noncompressibility of the peronealvein. There is normal compressibility and spontaneous flow within thecommon femoral vein and its junction with the greater saphenous vein,femoral vein and its junction with the deep femoral vein, and poplitealvein. Visualized segments of the anterior and posterior tibial veins arepatent. IMPRESSION: Deep venous thrombosis seen bilaterally involving the peroneal veins. Findings discussed with Mali Hughes APRN via telephone at 44:30 PM by Can Mcclain MD. ACTIONABLE ITEMS/RECOMMENDATIONS: See Impression I personally reviewed these image(s) along with the resident's/fellow'sinterpretations, certify that if a procedure was performed I wasphysically present, and agree with the final report. Mali Hughes APRN IMG US ORDERABLES Final Resul t * Peripheral Smear for Bone Marrow (11/03/2023 9:39 AM ADJUNCT PROFESSOR OF VOICE) Blood Peripheral blood specimen / Unknown Venipuncture / Unknown 11/03/2023 9:39 AM ADJUNCT PROFESSOR OF VOICE 11/03/2023 10:11 AM ADJUNCT PROFESSOR OF VOICE Mali Speedwell [employer] SUPERVISOR LAB BLOOD ORDERABLES Final Re sult [facility] Unless otherwise noted, all lab tests performed by: Division of Pathology and Laboratory Medicine [address] [place] [address] * Historical ABORh (10/25/2023 8:48 AM ADJUNCT PROFESSOR OF VOICE) ABORh A POS 10/25/2023 8:49 AM ADJUNCT PROFESSOR OF VOICE [facility] Blood Peripheral blood specimen / Unknown 10/25/2023 8:48 AM ADJUNCT PROFESSOR OF VOICE 10/25/2023 8:48 AM ADJUNCT PROFESSOR OF VOICE us Janes Manning ELECTRONICS PRODUCTION SUPERVISOR BLOOD BANK TEST ORDERAB LES Final Result [facility] [address] [place] [address] [id number] [place] [address] after 10/10/2023 Insurance [facility] MEDICARE PPO [facility] MEDICARE PPO Care Teams Insole Tacker Relationship Specialty Start Date End Date Esther Nair MD [address] [place] [address] [id number] [email or web address] PCP - General Leukemia 02/24/17 Telma Villarreal MD [address] [place] [address] [email or web address] PCP - External Referring Hematology 02/24/17 Steffany De La Torre [address] [place] [place] [address] [email or web address] Hematology [email or web address] Oncology 06/29/18 Wicho Dial MD [address] [place] [address] [phone] [email or web address] Consulting Physician Urology 03/21/17 Sally Cano MD [address] [place] [address] [phone] [email or web address] Consulting Physician Cardiology 06/02/23
[2024-10-09 10:44] LABS: Absolute Basophils 0.1 K/uL (0-0.5); Absolute Lymphocytes (CBC) 0.9 K/uL (0.7-4.9); Absolute Monocytes 0.4 K/uL (0.1-1.3); Absolute Neutrophil 1.8 K/uL (1.8-8.0); Basophils % 1.7 % (0-1.3); Hemoglobin 6.5 g/dL (13.6-17.9); Lymphocytes % 29.9 % (15.3-44.8); MCH 33.3 pg (27.0-35.0); MCHC 32.5 g/dL (32.0-36.0); MCV 102.4 fL (80-100); MPV 9.7 fL (7.6-11.3); Monocytes % 11.5 % (3.3-12.3); Neutrophils % 55.9 % (41.7-73.7); Nucleated Red Blood Cells % 0.1 % (0-0); Platelets 129 thou/uL (152-406); RBC Red Blood Cell Count 1.95 M/uL (4.33-5.43); Red Cell Distribution Width 28.1 % (12.1-15.2)
[2024-10-09 10:59] LABS: Anion Gap 6.4 mEq/L (5.0-15.0); Potassium 4.4 mEq/L (3.5-5.1)
--- NOTE | 2024-10-09 14:36 | EDPHYS ---
Physician Documentation [facility] Name: Juan Miguel Aguilar Age: 79 yrs Sex: Male : 1945 Arrival Date: 10/09/2024 Time: 09:31 Bed 14 Private MD: ED Physician Gian Goss HPI: 10/09 11:35 This 79 yrs old Male presents to ER via Ambulatory with complaints of ec2 Abnormal Lab Results. 11:35 Patient with history of myelodysplastic syndrome arrives today for anemia. No other ec2 concerns.. 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 - Infectious Disease History:: Denies. - Social history:: Smoking status: Patient denies any tobacco usage or history of. ROS: 11:35 Constitutional: as per hpi ec2 Exam: 11:35 Constitutional: GEN: NAD Head: atraumatic Eyes: EOMI Ears: External ears are ec2 normal. CV: regular rate LUNGS: no respiratory distress ABD: non-distended SKIN: no evidence of rashes MSK: no evidence of trauma Vital Signs: 10:01 BP 106 / 59; Pulse 71; Resp 17; Temp 97.7; Pulse Ox 95% ; Weight 47.63 kg; Height 5 ft. jl7 6 in. ; Pain 0/10; 11:20 BP 100 / 54; Pulse 72; Resp 16 S; Pulse Ox 100% on R/A; kc6 13:20 BP 105 / 59; Pulse 79; Resp 18 S; Temp 98.2(O); Pulse Ox 100% on R/A; kc6 14:36 BP 97 / 56; Pulse 69; Resp 16 S; Temp 98.6(O); Pulse Ox 99% on R/A; Pain 0/10; kc6 10:01 Body Mass Index 16.95 (47.63 kg, 167.64 cm) jl7 10:01 Pain Scale: Adult jl7 14:36 Pain Scale: Adult kc6 MDM: 10:08 Medical Screening Exam initiated ec2 11:35 Data reviewed: vital signs, nurses notes. ED course: Patient arrives today due to ec2 concern for anemia. Examination is unrevealing. Lab work shows anemia with hemoglobin over 7, will transfuse unit of blood.. 14:35 ED course: Patient received blood transfusion without issue. Patient appropriate for ec2 discharge home. Return precautions given.. 10/09 10:04 Order name: Type And Screen ec2 10/09 10:04 Order name: CBC with Diff; Complete Time: 11:01 ec2 10/09 10:04 Order name: BMP; Complete Time: 11:01 ec2 10/09 11:04 Order name: Bb Add On eb 10/09 11:13 Order name: Packed RBC Leukored EDMS 10/09 10:04 Order name: IV; Complete Time: 10:31 ec2 10/09 11:02 Order name: Consent for Blood Transfusion; Complete Time: 11:13 ec2 Administered Medications: No medications were administered Disposition Summary: 10/09/24 14:35 Discharge Ordered Notes: Location: Home ec2 Condition: Stable ec2 Diagnosis - Anemia, unspecified ec2 Followup: ec2 - With: Private Physician - When: - Reason: Re-evaluation by your physician Discharge Instructions: - Discharge Summary Sheet ec2 - Blood Transfusion, Adult ec2 Forms: - Medication Reconciliation Form ec2 - Antibiotic Education ec2 - Prescription Opioid Use ec2 - Patient Portal Instructions ec2 - Leadership Thank You Letter ec2 Critical care time excluding procedures: 11:35 Critical care time: Bedside Care: 30 minutes. Total time: 30 minutes ec2 Signatures: Dispatcher [employer] Therese Mendoza RN RN jl7 Gian Goss MD MD ec2 Corrections: (The following items were deleted from the chart) 10:04 10:04 CBC+H.LAB.BRZ ordered. EDMS EDMS 10:04 10:04 BASIC METABOLIC PANEL+C.LAB.BRZ ordered. EDMS EDMS 10:04 10:04 TYPE AND SCREEN+BB.LAB.BRZ ordered. EDMS EDMS 11:12 11:03 PACKED RBC LEUKORED+BB.LAB.BRZ ordered. EDMS EDMS 11:12 11:05 ABO/RH typing ordered. EDMS EDMS 11:12 11:05 Antibody Screen ordered. EDMS EDMS
--- NOTE | 2024-10-09 14:36 | ER ---
Nurse's Notes [facility] Name: Juan Miguel Aguilar Age: 79 yrs Sex: Male : 1945 Arrival Date: 10/09/2024 Time: 09:31 Bed 14 Private MD: Diagnosis: Anemia, unspecified Presentation: 10/09 10:01 Chief complaint: Patient states: Cancer center sent for blood transfusion due to hgb jl7 6.4, history of myelodysplastic syndrome, last blood transfusion was last week 10/04/24. Coronavirus screen: At this time, the client does not indicate any symptoms associated with coronavirus-19. Ebola Screen: No symptoms or risks identified at this time. Initial Sepsis Screen: Does the patient meet any 2 criteria? No. Patient's initial sepsis screen is negative. Does the patient have a suspected source of infection? No. Patient's initial sepsis screen is negative. Risk Assessment: Do you want to hurt yourself or someone else? Patient reports no desire to harm self or others. Onset of symptoms is unknown. Care prior to arrival: None. 10:01 Method Of Arrival: Ambulatory jl7 10:01 Acuity: SCARLET 3 jl7 Triage Assessment: 10:03 General: Appears in no apparent distress. uncomfortable, Behavior is calm, cooperative, jl7 appropriate for age. Pain: Denies pain. Neuro: Level of Consciousness is awake, alert, obeys commands, Oriented to person, place, time, situation. Cardiovascular: Patient's skin is warm and dry. Respiratory: Airway is patent Respiratory effort is even, unlabored, Respiratory pattern is regular, symmetrical. 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 - Infectious Disease History:: Denies. - Social history:: Smoking status: Patient denies any tobacco usage or history of. Screenin:32 [facility] ED Fall Risk Assessment (Adult) History of falling in the last 3 months, kc6 including since admission No falls in past 3 months (0 pts) Confusion or Disorientation No (0 pts) Intoxicated or Sedated No (0 pts) Impaired Gait No (0 pts) Mobility Assist Device Used No (0 pt) Altered Elimination No (0 pt) Score/Fall Risk Level 0 - 2 = Low Risk Oriented to surroundings, Maintained a safe environment, Educated pt \T\ family on fall prevention, incl call for assistance when getting out of bed. Abuse screen: Denies threats or abuse. Denies injuries from another. Nutritional screening: No deficits noted. Tuberculosis screening: No symptoms or risk factors identified. Assessment: 10:31 General: Appears in no apparent distress. comfortable, well groomed, well developed, kc6 Behavior is calm, cooperative, appropriate for age, Reports fatigue for >3 days. Pain: Denies pain. Neuro: Level of Consciousness is awake, alert, obeys commands, Oriented to person, place, time, situation, Appropriate for age Reports weakness. Cardiovascular: Capillary refill < 3 seconds. Respiratory: Airway is patent Trachea midline Respiratory effort is even, unlabored, Respiratory pattern is regular, symmetrical. GI: No signs and/or symptoms were reported involving the gastrointestinal system. : No signs and/or symptoms were reported regarding the genitourinary system. EENT: No signs and/or symptoms were reported regarding the EENT system. Derm: No signs and/or symptoms reported regarding the dermatologic system. Skin is intact, is fragile, is thin, with poor turgor Skin is dry, Skin is pale, Skin temperature is warm. Musculoskeletal: No signs and/or symptoms reported regarding the musculoskeletal system. Circulation, motion, and sensation intact. Capillary refill < 3 seconds, Range of motion: intact in all extremities. 11:31 Reassessment: Patient appears in no apparent distress at this time. No changes from kc6 previously documented assessment. Patient and/or family updated on plan of care and expected duration. Pain level reassessed. Patient is alert, oriented x 3, equal unlabored respirations, skin warm/dry/pink. 12:31 Reassessment: Patient appears in no apparent distress at this time. No changes from kc6 previously documented assessment. Patient and/or family updated on plan of care and expected duration. Pain level reassessed. Patient is alert, oriented x 3, equal unlabored respirations, skin warm/dry/pink. 12:40 Reassessment: please see blood transfusion record for further vitals. kc6 13:31 Reassessment: Patient appears in no apparent distress at this time. No changes from kc6 previously documented assessment. Patient and/or family updated on plan of care and expected duration. Pain level reassessed. Patient is alert, oriented x 3, equal unlabored respirations, skin warm/dry/pink. 14:36 Reassessment: Patient appears in no apparent distress at this time. No changes from kc6 previously documented assessment. Patient and/or family updated on plan of care and expected duration. Pain level reassessed. Patient is alert, oriented x 3, equal unlabored respirations, skin warm/dry/pink. Patient states feeling better. Patient states symptoms have improved. Vital Signs: 10:01 BP 106 / 59; Pulse 71; Resp 17; Temp 97.7; Pulse Ox 95% ; Weight 47.63 kg; Height 5 ft. jl7 6 in. ; Pain 0/10; 11:20 BP 100 / 54; Pulse 72; Resp 16 S; Pulse Ox 100% on R/A; kc6 13:20 BP 105 / 59; Pulse 79; Resp 18 S; Temp 98.2(O); Pulse Ox 100% on R/A; kc6 14:36 BP 97 / 56; Pulse 69; Resp 16 S; Temp 98.6(O); Pulse Ox 99% on R/A; Pain 0/10; kc6 10:01 Body Mass Index 16.95 (47.63 kg, 167.64 cm) jl7 10:01 Pain Scale: Adult jl7 14:36 Pain Scale: Adult kc6 ED Course: 09:33 Patient arrived in ED. mr 09:34 Gian Goss MD is Attending Physician. ec2 10:03 Triage completed. jl7 10:03 Arm band placed on right wrist. jl7 10:18 Martha Goldberg, MICHELLE is Primary Nurse. kc6 10:31 Patient has correct armband on for positive identification. Bed in low position. Call [facility] light in reach. Side rails up X 1. Adult w/ patient. Pulse ox on. NIBP on. Door closed. Noise minimized. Lights dimmed. Pillow given. 10:31 Type And Screen Sent. kc6 10:31 BMP Sent. kc6 10:31 CBC with Diff Sent. kc6 10:31 Inserted saline lock: 20 gauge in right forearm, using aseptic technique. Blood 6 collected. Flushed with 10 mL NS. Patient maintains SpO2 saturation greater than 95% on room air. 11:14 Provided Education on: Blood Transfusion. kc6 14:53 No provider procedures requiring assistance completed. IV discontinued, intact, kc6 bleeding controlled, No redness/swelling at site. Pressure dressing applied. Administered Medications: No medications were administered Medication: 14:54 VIS not applicable for this client. kc6 Outcome: 14:35 Discharge ordered by . ec2 14:53 Discharged to home ambulatory, with significant other, kc6 14:53 Condition: good 14:53 Discharge instructions given to patient, significant other, Instructed on discharge instructions, follow up and referral plans. Demonstrated understanding of instructions, follow-up care, 14:54 Patient left the ED. kc6 Signatures: Sanjana Howe, Reg Reg mr Therese Adamson RN RN jl7 Martha Goldberg RN RN kc6 Gian Goss MD MD ec2
[2024-10-09 15:25] VITALS: BP 97/56; TEMP 98.6; O2SAT 99
== END 2024-10-09 14:54 | disposition home or self-care (01) ==
LOC: ER 09:31
DX: D46.9 Myelodysplastic syndrome, unspecified (principal); D63.8 Anemia in other chronic diseases classified elsewhere; Z88.8 Allergy status to other drugs, medicaments and biological substances
CPT/HCPCS: 85025; 80048; 36415; 86900; 86850; 86901; 86920; 99284; P9016

== ENCOUNTER 2024-10-21 08:33 | Emergency (ER) | payer OTHER ==
--- OUTSIDE RECORDS SUMMARY | 2024-10-21 08:37 | XMS REPORT | Clinical Summary ---
Author Name Unknown Organization [facility] [place] Address [address] [place] [address] Care Team Providers Care Senior Commissary Agent Name Role Phone Esther Nair MD Primary Care Provider [phone] Telma Villarreal MD Unavailable Steffany De La Torre Unavailable [phone] Wicho Dial MD Unavailable [phone] Sally Cano MD Unavailable Allergies Active Allergy [...] Team Description 08/03/2024 Orders Only [facility] [address] [place] [address] Main [facility], 8th [place] [address] Elsie Watson PA Myelodysplastic syndrome, not otherwise specified (Primary Dx) 08/02/2024 11:56 AM CDT - 08/02/2024 11:59 PM CDT Hospital Encounter [facility] - Main Building [address] [facility] [address] Main [facility], 2nd Floor, [place] [address] Elsie Watson PA Noble Holland, Crystal A, RN Myelodysplastic syndrome, not otherwise specified Discharge Disposition: Home 08/02/2024 11:00 AM CDT [facility] [address] [place] [address], 8th [place] [address] Esther Nair MD Myelodysplastic syndrome, not otherwise specified (Primary Dx); Other secondary thrombocytopenia; Bilateral deep vein thromboses, not otherwise specified; H/O: myocardial infarct at less than 60; Anemia in neoplastic disease; Neutropenia, not otherwise specified 08/02/2024 9:30 AM CDT - 08/02/2024 11:55 AM CDT Hospital Encounter [facility] [address] [place] [address] Main [facility], [place] [address] Desiree Guthrie APRN Myelodysplastic syndrome, not otherwise specified Discharge Disposition: Home 08/02/2024 Travel 05/01/2024 4:16 PM CDT - 05/01/2024 11:59 PM CDT Hospital Encounter [facility] - Main Building [address] Main [facility], 2nd Floor, [place] [address] Desiree Guthrie APRN Jo, Edifia Sungsoon, RN Myelodysplastic syndrome, not otherwise specified Discharge Disposition: Home 05/01/2024 2:30 PM CDT [facility] [address] [place] [address] Main dg, 8th [place] [address] Esther Nair MD Myelodysplastic syndrome, not otherwise specified (Primary Dx); Anemia in neoplastic disease; H/O: myocardial infarct at less than 60; 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; Bilateral deep vein thromboses, not otherwise specified 05/01/2024 11:48 AM CDT - 05/01/2024 4:15 PM CDT Hospital Encounter [facility] [address] [place] [address] Main [facility], [place] [address] Mali Hughes APRN Myelodysplastic syndrome, not otherwise specified Discharge Disposition: Home 05/01/2024 Orders Only [facility] [address] [place] [address] Main [facility], 8th [place] [address] Desiree Guthrie APRN Myelodysplastic syndrome, not otherwise specified (Primary Dx) 05/01/2024 Travel 04/30/2024 Refill [facility] [address] [place] [address] Main dg, 8th [place] [address] Mali Hughes APRN Myelodysplastic syndrome, not otherwise specified; Bilateral lower limb edema 01/11/2024 Orders Only [facility] - Surgical Oncology [address] [place] [address] Main dg, 7th [place] [address] Myah Gardiner PA Ventral hernia (Primary Dx) 01/09/2024 Orders Only [facility] [address] [place] [address] Main dg, 8th [place] [address] Mali Hughes APRN Myelodysplastic syndrome, not otherwise specified (Primary Dx); Abdominal hernia, not otherwise specified 01/04/2024 12:14 PM CDT - 01/04/2024 11:59 PM CDT Hospital Encounter [facility] Treatment [facility] - Main Building [address] Main [facility], 2nd Floor, [place] [address] Mali Hughes APRN Griffis, Lee A, RN Myelodysplastic syndrome, not otherwise specified Discharge Disposition: Home 01/04/2024 11:00 AM CDT [facility] [address] [place] [address] Main [facility], 8th [place] [address] Esther Nair MD Myelodysplastic syndrome, not otherwise specified (Primary Dx); H/O: myocardial infarct at less than 60; RARS; Anemia in neoplastic disease; Acute embolism and thrombosis of other specified deep vein of lower extremity, bilateral 01/04/2024 9:27 AM CDT - 01/04/2024 12:13 PM CDT Hospital Encounter [facility] [address] [place] [address], [place] [address] Mali Hughes APRN Myelodysplastic syndrome, not otherwise specified Discharge Disposition: Home 01/04/2024 Travel 12/05/2023 Telephone [facility] - [place] [address] Main [facility], 8th [place] [address] Mali Hughes APRN 12/05/2023 Telephone [facility] [address] [place] [address] Main [facility], 8th [place] [address] Kristin Alvarado RN 11/03/2023 3:30 PM [facility] Ancillary Procedure General Ultrasound [address] [facility], 5th [place] [address] Mali Hughes APRN Myelodysplastic syndrome, not otherwise specified; Bilateral lower limb edema 11/03/2023 2:00 PM [facility] Follow[facility]Up [facility] [address] [place] [address] Main [facility], 8th [place] [address] Esther Nair MD Myelodysplastic syndrome, not otherwise specified (Primary Dx); Acute embolism and thrombosis of other specified deep vein of lower extremity, bilateral; Anemia in neoplastic disease; H/O: myocardial infarct at less than 60; Gastroesophageal reflux disease; Hyperlipidemia, not otherwise specified 11/03/2023 10:45 AM [facility] Office Visit Leukemia [facility] [address] [facility] Main Bldg, 8th [place] [address] Mali Hughes APRN Darling, Brooke, PA Myelodysplastic syndrome, not otherwise specified 11/03/2023 9:15 AM [facility]ER - 11/03/2023 11:59 PM [facility] Hospital Encounter Leukemia [facility] [address] [facility] Main Bldg, 8th [place] [address] Mali Hughes APRN Myelodysplastic syndrome, not otherwise specified Discharge Disposition: Home 11/03/2023 Travel 11/01/2023 Orders Only [facility] [place] [facility] [place] [address] Main Bldg, 8th [place] [address] Mali Hughes APRN Myelodysplastic syndrome, not otherwise specified (Primary Dx) 11/01/2023 Orders Only Leukemia [facility] [address] Main Bldg, 8th [place] [address] Mali Hughes APRN Myelodysplastic syndrome, not otherwise specified (Primary Dx) 10/25/2023 3:30 PM [facility] Follow[facility]Up [facility] [address] Main Bldg, 8th [place] [address] Esther Nair MD Myelodysplastic syndrome, not otherwise specified (Primary Dx); Bilateral lower limb edema; H/O: myocardial infarct at less than 60; Anemia in neoplastic disease; Hyperlipidemia, not otherwise specified 10/25/2023 8:21 AM [facility]ER - 10/25/2023 11:59 PM [facility] Hospital Encounter [facility] [address] Main Bldg, 2nd Floor, [place] [address] Mali Hughes APRN Reine, Sharon A, RN Other myelodysplastic syndrome (Primary Dx); Myelodysplastic syndrome, not otherwise specified Discharge Disposition: Home 10/25/2023 6:30 AM [facility]ER - 10/25/2023 8:20 AM [facility] Hospital Encounter [facility] - [place] [address] Main Bldg, 8th [place] [address] Janes Manning APRN Myelodysplastic syndrome, not otherwise specified Discharge Disposition: Home 10/25/2023 Orders Only [facility] [address] Main Bldg, 8th [place] [address] Mali Hughes APRN 10/25/2023 Telephone Le[facility] Center [address] Main Bldg, 8th [place] [address] Mali Hughes APRN 10/25/2023 Orders Only [facility] [address] Main Bldg, 8th [place] [address] Mali Hughes APRN Myelodysplastic syndrome, not otherwise specified (Primary Dx) 10/25/2023 Travel 10/24/2023 Telephone [facility] [address] Main Bldg, 8th [place] [address] Mali Hughes APRN 10/24/2023 Orders Only [facility] [place] [address] Main Bldg, 8th [place] [address] Mali Hughes APRN Myelodysplastic syndrome, not otherwise specified (Primary Dx) 10/24/2023 Telephone [facility] [address] Main Bldg, 8th [place] [address] Kristin Alvarado RN after 10/22/2023 Immunizations Name Administration Dates Next Due Influenza, [...] 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 11/01/2024 11:15 AM [facility] [address] [place] [address], 8th [place] [address] Esther Nair MD [address] [place] [email or web address] Health Maintenance Due Date Last Done Comments [...] VENOUS DOPPLER BILATERAL Routine 11/03/2023 4:25 PM [employer]ER Myelodysplastic syndrome, not otherwise specified Bilateral lower limb edema .CBC Routine 11/03/2023 9:39 AM [employer]ER Myelodysplastic syndrome, not otherwise specified MAGNESIUM LEVEL Routine 11/03/2023 9:39 AM CL[facility] [employer]ER Myelodysplastic syndrome, not otherwise specified GLUCOSE, RANDOM Routine 11/03/2023 9:39 AM CL[facility] [employer]ER Myelodysplastic syndrome, not otherwise specified PHOSPHORUS LEVEL Routine 11/03/2023 9:39 AM CL[facility] BE[employer]ER Myelodysplastic syndrome, not otherwise specified CALCIUM LEVEL Routine 11/03/2023 9:39 AM CL[facility] BE[employer]ER Myelodysplastic syndrome, not otherwise specified PERIPHERAL SMR FOR BONE MARROW Routine 11/03/2023 9:39 AM CL[facility] [employer]ER Myelodysplastic syndrome, not otherwise specified COMPLETE BLOOD COUNT W/ DIFFERENTIAL Routine 11/03/2023 9:39 AM CL[facility] BEAMER Myelodysplastic syndrome, not otherwise specified TYPE AND SCREEN Routine 11/03/2023 9:39 AM CL[facility] [employer]ER Myelodysplastic syndrome, not otherwise specified ASPARTATE AMINOTRANSFERASE Routine 11/03/2023 9:39 AM CLOTH BE[employer]ER Myelodysplastic syndrome, not otherwise specified ELECTROLYTE PANEL Routine 11/03/2023 9:3 9 AM [employer] [employer]ER Myelodysplastic syndrome, not otherwise specified ALANINE AMINOTRANSFERASE Routine 024 9:39 AM [employer]ER Myelodysplastic syndrome, not otherwise specified LACTATE DEHYDROGENASE Routine 11/03/2023 9:39 AM CL[facility] [employer]ER Myelodysplastic syndrome, not otherwise specified ALKALINE PHOSPHATASE Routine 11/03/2023 9:39 AM CL[facility] [employer]ER Myelodysplastic syndrome, not otherwise specified FRACTIONATED BILIRUBIN Routine 9:39 AM CL[facility] BE[employer]ER Myelodysplastic syndrome, not otherwise specified URIC ACID Routine 11/03/2023 9:39 AM [employer] [employer]ER Myelodysplastic syndrome, not otherwise specified CREATININE Routine 11/03/2023 9:39 AM [employer]ER Myelodysplastic syndrome, not otherwise specified BLOOD UREA NITROGEN Routine 11/03/2023 9 :39 AM [facility]ER Myelodysplastic syndrome, not otherwise specified ALBUMIN LEVEL Routine 11/03/2023 9:39 AM CL[facility] [employer]ER Myelodysplastic syndrome, not otherwise specified TOTAL PROTEIN Routine 11/03/2023 9:39 AM CL[facility] [employer]ER Myelodysplastic syndrome, not otherwise specified TRANSFUSE RED BLOOD CELLS Routine 10/25/2023 4:05 PM [employer] [employer]ER Myelodysplastic syndrome, not otherwise specified TRANSFUSE RED BLOOD CELLS Routine 10/25/2023 1:10 PM [employer] HISTORICAL ABORH Routine 10/25/2023 8:48 AM [employer]ER Myelodysplastic syndrome, not otherwise specified PREPARE RBC Routine 10/25/2023 8:36 AM [employer]ER Myelodysplastic syndrome, not otherwise specified DIFFERENTIAL Routine 10/25/2023 7:41 AM CL[facility]ER Myelodysplastic syndrome, not otherwise specified .CBC Routine 10/25/2023 7:41 AM CL[facility] BEAMER Myelodysplastic syndrome, not otherwise specified COMPLETE BLOOD COUNT W/ DIFFERENTIAL Routine 10/25/2023 7:41 AM CL[facility]AMER Myelodysplastic syndrome, not otherwise specified TYPE AND SCREEN Routine 10/25/2023 7:41 AM CL[facility]ER Myelodysplastic syndrome, not otherwise specified ASPARTATE AMINOTRANSFERASE Routine 10/25/2023 7:41 AM CL[facility]ER Myelodysplastic syndrome, not otherwise specified MAGNESIUM LEVEL Routine 10/25/2023 7:41 AM CLOTH BEAMER Myelodysplastic syndrome, not otherwise specified ELECTROLYTE PANEL Routine 10/25/2023 7:4 1 AM CL[facility]ER Myelodysplastic syndrome, not otherwise specified ALANINE AMINOTRANSFERASE Routine 024 7:41 AM CL[facility] BE[facility]ER Myelodysplastic syndrome, not otherwise specified LACTATE DEHYDROGENASE Routine 10/25/2023 7:41 AM CL[facility]AMER Myelodysplastic syndrome, not otherwise specified ALKALINE PHOSPHATASE Routine 10/25/2023 7:41 AM CLOTH BEAMER Myelodysplastic syndrome, not otherwise specified FRACTIONATED BILIRUBIN Routine 7:41 AM CLOTH BEAMER Myelodysplastic syndrome, not otherwise specified URIC ACID Routine 10/25/2023 7:41 AM CLOTH BEAMER Myelodysplastic syndrome, not otherwise specified CREATININE Routine 10/25/2023 7:41 AM CLOTH BEAMER Myelodysplastic syndrome, not otherwise specified BLOOD UREA NITROGEN Routine 10/25/2023 7 :41 AM CLOTH BEAMER Myelodysplastic syndrome, not otherwise specified GLUCOSE, RANDOM Routine 10/25/2023 7:41 AM CL[facility] BE[facility]ER Myelodysplastic syndrome, not otherwise specified PHOSPHORUS LEVEL Routine 10/25/2023 7:41 AM CLOTH BEAMER Myelodysplastic syndrome, not otherwise specified CALCIUM LEVEL Routine 10/25/2023 7:41 AM CLOTH BEAMER Myelodysplastic syndrome, not otherwise specified ALBUMIN LEVEL Routine 10/25/2023 7:41 AM CLOTH BEAMER Myelodysplastic syndrome, not otherwise specified TOTAL PROTEIN Routine 10/25/2023 7:41 AM CLOTH BEAMER Myelodysplastic syndrome, not otherwise specified PREPARE RBC Routine 10/24/2023 12:26 PM CL[facility]ER after 10/22/2023 Results * Transfuse RBC:Transfusion Date: 08/02/2024 (08/02/2024 6:48 PM CDT) Only the most recent of6 resultswithin the time period is included. Elsie NUÑEZ BLOOD TRANSFUSION ORDERABLES F inal Result * Prepare RBC:ATC-main, 1 Units (08/02/2024 10:34 AM CDT) Only the most recent of5 resultswithin the time period is included. Product Code K3092S77 [facility] Product Code Text Red Blood Cells [facility] QTY Ordered 1 [facility] Dispense Status Transfused [facility] Unit Expiration [id number] [facility] Unit Number [id number] [facility] Unit Blood Type A+ [facility] Bag Volume 393 [facility] XM Interpretation Compatible U T [facility] Unit Blood Type Barcode 6200 [facility] PRBC Product Ready For Financial Systems Administrator B2 Blood Bank [facility] RBC Product Status 1 RBC approved [facility] Comment:Order Form 03 when r rabia for product issue. Blood Elsie NUÑEZ BLOOD BANK PRODUCT ORDERABLES Final Result [facility] [address] [place] [address] * Glucose, Random (08/02/2024 9:37 AM CDT) Only the most recent of4 resultswithin the time period is included. Glucose Random 103 70 - 199 mg/dL 08/02/2024 10:37 AM CDT [facility] Blood Peripheral blood specimen / Unknown Venipuncture / Unknown 08/02/2024 9:37 AM CDT 08/02/2024 9:50 AM CDT Narrative [facility] - 08/02/2024 10:37 AM CDT Effective 05/12/16, the glucose reference intervals have been updated based on [place] [employer] guidelines (Standards of Medical Care in Diabetes 2016. Diabetes Care 2016; 39: S13-S22). Fasting blood glucose: Normal: 70-99 mg/dL Impaired fasting glucose (increased risk for diabetes or pre-diabetes): 100-125 mg/dL Diabetes mellitus: >/=126 mg/dL Random blood glucose: Normal: 70-199 mg/dL Note: Random glucose >100 mg/dL is associated with increased risk for diabetes Desiree Guthrie APRN LAB BLOOD ORDERABLES F inal Result [facility] Unless otherwise noted, all lab tests performed by: Division of Pathology and Laboratory Medicine [address] [place] [phone] * (ABNORMAL) .CBC (08/02/2024 9:37 AM CDT) Only the most recent of5 resultswithin the time period is included. White Blood Cell 3.1(L) 4.1 - 10.5 K/uL 08/02/2024 10:16 AM CDT [facility] Red Blood Cell 2.22(L) 4.30 - 6.04 M/uL 08/02/2024 10:16 AM CDT [facility] Hemoglobin 7.1(L) 13.3 - 17.4 g/dL 08/02/2024 10:16 AM CDT [facility] Hematocrit 22.1(L) 39.5 - 51.8 % 08/02/2024 10:16 AM CDT [facility] Mean Cell Volume 100(H) 82 - 99 fL 08/02/2024 10:16 AM CDT [facility] Mean Cell Hemoglobin 32.0 26.6 - 33.2 pg 08/02/2024 10:16 AM CDT [facility] Mean Cell Hemoglobin Concentration 32.1 31.1 - 35.2 g/dL 08/02/2024 10:16 AM CDT [facility] RDW-SD 99.1(H) 37.5 - 49.7 fL 08/02/2024 10:16 AM T [facility] Red Cell Diameter Width 29.2(H) 11.6 - 15.5 % 08/02/2024 10:16 AM T [facility] Platelet 151(L) 160 - 397 K/uL 08/02/2024 10:16 AM T [facility] Mean Platelet Volume 08/02/2024 10:16 AM T [facility] Comment:Result Not Measured INRBC 0.0 0.0 - 0.1 /100 WBC 08/02/2024 10:16 AM [facility] Comment: The INRBC (instrument NRBC) value reflects the enumeration of nucleated red blood cells contained in a 200uL sample of whole blood analyzed by the instrument. This value may differ from the NRBC value reported in a manual differential, which is based on a 100 cell differential. Neutrophil % 48.4 43.2 - 72.7 % 08/02/2024 10:16 AM CDT [facility] Lymphocyte % 30.4 16.8 - 46.2 % 08/02/2024 10:16 AM T [facility] Monocyte % 16.0(H) 5.1 - 12.5 % 08/02/2024 10:16 AM [facility] Eosinophil % 3.9 0.4 - 6.3 % 08/02/2024 10:16 AM T [facility] Basophil % 1.0 0.2 - 1.4 % 08/02/2024 10:16 AM T [facility] IGRE % 0.3 0.1 - 1.5 % 08/02/2024 10:16 AM T [facility] Comment:The IGRE% includes M etamyelocytes, Myelocytes and Promyelocytes. Neutrophil Abs 1.48(L) 1.95 - 7.25 K/uL 08/02/2024 10:16 AM CDT [facility] Lymphocyte Abs 0.93(L) 1.01 - 3.24 K/uL 08/02/2024 10:16 AM T [facility] Monocyte Abs 0.49 0.24 - 0.85 K/uL 08/02/2024 10:16 AM CDT [facility] Eosinophil Abs 0.12 0.02 - 0.50 K/uL 08/02/2024 10:16 AM CDT [facility] Basophil Abs 0.03 0.02 - 0.09 K/uL 08/02/2024 10:16 AM CDT [facility] IG Abs 0.01 0.01 - 0.12 K/uL 08/02/2024 10:16 AM CDT [facility] Blood Peripheral blood specimen / Unknown Venipuncture / Unknown 08/02/2024 9:37 AM CDT 08/02/2024 9:48 AM CDT Lennysumanth Darvin Jerri SERVER LAB BLOOD ORDERABLES F inal Result [facility] Unless otherwise noted, all lab tests performed by: Division of Pathology and Laboratory Medicine [address] [place] [phone] * (ABNORMAL) Fractionated Bilirubin (08/02/2024 9:37 AM CDT) Only the most recent of5 resultswithin the time period is included. Bilirubin Direct 0.2 0.0 - 0.3 mg/dL 08/02/2024 10:37 AM CDT [facility] Comment:Indocyanine Green (I CG) may cause falsely elevated bilirubin results. Total and direct bilirubin must not be measured from samples containing indocyanine green. Bilirubin Indirect 1.2(H) 0.0 - 0.9 mg/dL 08/02/2024 10:37 AM CDT [facility] Bilirubin Total 1.4(H) 0.0 - 1.2 mg/dL 08/02/2024 10:37 AM CDT [facility] Comment:Indocyanine Green (I CG) may cause falsely elevated bilirubin results. Total and direct bilirubin must not be measured from samples containing indocyanine green. False elevation of total bilirubin can be seen in patients with IgG concentrations above 28 g/L. Blood Peripheral blood specimen / Unknown Venipuncture / Unknown 08/02/2024 9:37 AM CDT 08/02/2024 9:50 AM CDT Desiree Guthrie SERVER LAB BLOOD ORDERABLES F inal Result [facility] Unless otherwise noted, all lab tests performed by: Division of Pathology and Laboratory Medicine [address] [place] [phone] * Type and Screen (08/02/2024 9:37 AM CDT) Only the most recent of5 resultswithin the time period is included. ABORh A POS 08/02/2024 9:34 AM CDT [facility] ABSC Negative 08/02/2024 9:34 AM CDT [facility] Clot Expiration 08/05/2024 23:59 08/02/2024 9:34 AM CDT [facility] Historical Record Check Complete 08/02/2024 9:34 AM CDT [facility] Blood Peripheral blood specimen / Unknown Venipuncture / Unknown 08/02/2024 9:37 AM CDT 08/02/2024 11:12 AM CDT Desiree Guthrie SERVER BLOOD BANK TEST ORDERA BLES Final Result [facility] [address] [place] [address] [address]2.4400 [place] [address] * Uric Acid (08/02/2024 9:37 AM CDT) Only the most recent of5 resultswithin the time period is included. Uric Acid 4.4 3.4 - 7.0 mg/dL 08/02/2024 10:37 AM CDT [facility] Blood Peripheral blood specimen / Unknown Venipuncture / Unknown 08/02/2024 9:37 AM CDT 08/02/2024 9:50 AM CDT us Wengrid A Jerri SERVER LAB BLOOD ORDERABLES F inal Result Performing Organization Address [facility] Co de Phone Number [facility] Unless otherwise noted, all lab tests performed by: Division of Pathology and Laboratory Medicine [address] [place] [id number] * BUN (08/02/2024 9:37 AM CDT) Only the most recent of5 resultswithin the time period is included. BUN 16 6 - 23 mg/dL 08/02/2024 10:37 AM CDT [facility] Blood Peripheral blood specimen / Unknown Venipuncture / Unknown 08/02/2024 9:37 AM CDT 08/02/2024 9:50 AM CDT Wengrid A Jerri SERVER LAB BLOOD ORDERABLES F inal Result Performing Organization Address [facility] de Phone Number [facility] Unless otherwise noted, all lab tests performed by: Division of Pathology and Laboratory Medicine [address] [place] [phone] * Alanine Aminotransferase (08/02/2024 9:37 AM CDT) Only the most recent of5 resultswithin the time period is included. Pathologist [facility] ALT 28 <=41 U/L 08/02/2024 10:37 AM CDT [facility] Blood Peripheral blood specimen / Unknown Venipuncture / Unknown 08/02/2024 9:37 AM CDT 08/02/2024 9:50 AM CDT Wengrid A Jerri SERVER LAB BLOOD ORDERABLES F inal Result Performing Organization Address [facility] Co de Phone Number [facility] Unless otherwise noted, all lab tests performed by: Division of Pathology and Laboratory Medicine [address] [place] [id number] * Aspartate Aminotransferase (08/02/2024 9:37 AM CDT) Only the most recent of5 resultswithin the time period is included. AST 22 <=40 U/L 08/02/2024 10:37 AM CDT [facility] Blood Peripheral blood specimen / Unknown Venipuncture / Unknown 08/02/2024 9:37 AM CDT 08/02/2024 9:50 AM CDT Desiree A Jerri SERVER LAB BLOOD ORDERABLES F inal Result Performing Organization Address [facility] de Phone Number [facility] Unless otherwise noted, all lab tests performed by: Division of Pathology and Laboratory Medicine [address] [place] [phone] * Total Protein (08/02/2024 9:37 AM CDT) Only the most recent of5 resultswithin the time period is included. Pathologist [facility] Tot Protein 6.6 6.4 - 8.3 gm/dL 08/02/2024 10:37 AM CDT [facility] Blood Peripheral blood specimen / Unknown Venipuncture / Unknown 08/02/2024 9:37 AM CDT 08/02/2024 9:50 AM CDT Narrative [facility] - 08/02/2024 10:37 AM CDT Reference range established based on adult population Desiree A Jerri SERVER LAB BLOOD ORDERABLES F inal Result Performing Organization Address [facility] Co de Phone Number [facility] Unless otherwise noted, all lab tests performed by: Division of Pathology and Laboratory Medicine [address] [place] [phone] * Phosphorus Level (08/02/2024 9:37 AM CDT) Only the most recent of4 resultswithin the time period is included. Pathologist [facility] Phosphorus Level 3.7 2.5 - 4.5 mg/dL 08/02/2024 10:37 AM CDT [facility] Blood Peripheral blood specimen / Unknown Venipuncture / Unknown 08/02/2024 9:37 AM CDT 08/02/2024 9:50 AM CDT us Lennyngrid A Jerri SERVER LAB BLOOD ORDERABLES F inal Result Performing Organization Address City/[facility]/ZIP Co de Phone Number [facility] Unless otherwise noted, all lab tests performed by: Division of Pathology and Laboratory Medicine [address] [place] [phone] * Alkaline Phosphatase (08/02/2024 9:37 AM CDT) Only the most recent of5 resultswithin the time period is included. Alkaline Phosphatase 51 40 - 129 U/L 08/02/2024 10:37 AM CDT [facility] Blood Peripheral blood specimen / Unknown Venipuncture / Unknown 08/02/2024 9:37 AM CDT 08/02/2024 9:50 AM CDT us Wengrid A Jerri SERVER LAB BLOOD ORDERABLES F inal Result Performing Organization Address [facility] Co de Phone Number [facility] Unless otherwise noted, all lab tests performed by: Division of Pathology and Laboratory Medicine [address] [place] [id number] * Magnesium Level (08/02/2024 9:37 AM CDT) Only the most recent of4 resultswithin the time period is included. Magnesium Level 1.8 1.6 - 2.6 mg/dL 08/02/2024 10:37 AM CDT [facility] Blood Peripheral blood specimen / Unknown Venipuncture / Unknown 08/02/2024 9:37 AM CDT 08/02/2024 9:50 AM CDT us Lennyngrid A Jerri SERVER LAB BLOOD ORDERABLES F inal Result Performing Organization Address [facility] Co de Phone Number [facility] Unless otherwise noted, all lab tests performed by: Division of Pathology and Laboratory Medicine [address] [place] [phone] * LDH (08/02/2024 9:37 AM CDT) Only the most recent of5 resultswithin the time period is included. LDH 183 135 - 225 U/L 08/02/2024 10:38 AM CDT [facility] Blood Peripheral blood specimen / Unknown Venipuncture / Unknown 08/02/2024 9:37 AM CDT 08/02/2024 9:51 AM CDT Narrative [facility] - 08/02/2024 10:38 AM CDT Results greater than 1651 U/L may not be reliable due to matrix effect with extended dilution as it exceeds the director clinical data's recommended limit. Caution should be exercised when interpreting such values and done in conjunction with clinical context. us Desiree Guthrie APRN LAB BLOOD ORDERABLES F inal Result [facility] Unless otherwise noted, all lab tests performed by: Division of Pathology and Laboratory Medicine [address] [place] [phone] * Creatinine (08/02/2024 9:37 AM CDT) Only the most recent of5 resultswithin the time period is included. Creatinine 0.71 0.67 - 1.17 mg/dL 08/02/2024 10:37 AM CDT [facility] eGFR 93 >=60 mL/min/1.7 3 sq. m 08/02/2024 10:37 AM CDT [facility] Comment: The eGFRcr is calculated with the [...] CDT 08/02/2024 9:50 AM CDT Desiree Guthrie SERVER LAB BLOOD ORDERABLES F inal Result Performing Organization Address City/[facility]/ZIP Co de Phone Number [facility] Unless otherwise noted, all lab tests performed by: Division of Pathology and Laboratory Medicine [address] [place] [phone] * Calcium Level (08/02/2024 9:37 AM CDT) Only the most recent of4 resultswithin the time period is included. Calcium Level Total 9.7 8.2 - 10.2 mg/dL 08/02/2024 10:37 AM CDT [facility] Blood Peripheral blood specimen / Unknown Venipuncture / Unknown 08/02/2024 9:37 AM CDT 08/02/2024 9:50 AM CDT Desiree Guthrie SERVER LAB BLOOD ORDERABLES F inal Result Performing Organization Address [facility] Co de Phone Number [facility] Unless otherwise noted, all lab tests performed by: Division of Pathology and Laboratory Medicine [address] [place] [phone] * Albumin Level (08/02/2024 9:37 AM CDT) Only the most recent of5 resultswithin the time period is included. Albumin Level 4.4 3.5 - 5.2 gm/dL 08/02/2024 10:37 AM CDT [facility] Blood Peripheral blood specimen / Unknown Venipuncture / Unknown 08/02/2024 9:37 AM CDT 08/02/2024 9:50 AM CDT Desiree A Jerri SERVER LAB BLOOD ORDERABLES F inal Result Performing Organization Address [facility] Co de Phone Number [facility] Unless otherwise noted, all lab tests performed by: Division of Pathology and Laboratory Medicine [address] [place], [place] [phone] * (ABNORMAL) Electrolyte Panel (08/02/2024 9:37 AM CDT) Only the most recent of5 resultswithin the time period is included. Pathologist [facility] Sodium Level 141 136 - 145 mmol/L 08/02/2024 10:37 AM CDT [facility] Potassium Level 4.2 3.4 - 4.5 mmol/L 08/02/2024 10:37 AM CDT [facility] Chloride 103 98 - 107 mmol/L 08/02/2024 10:37 AM CDT [facility] CO2 30(H) 22 - 29 mmol/L 08/02/2024 10:37 AM CDT [facility] Anion Gap 8 4 - 14 mmol/L 08/02/2024 10:37 AM CDT [facility] Blood Peripheral blood specimen / Unknown Venipuncture / Unknown 08/02/2024 9:37 AM CDT 08/02/2024 9:50 AM CDT Desiree A Jerri SERVER LAB BLOOD ORDERABLES F inal Result Performing Organization Address [facility] Co de Phone Number [facility] Unless otherwise noted, all lab tests performed by: Division of Pathology and Laboratory Medicine [address] [place] [phone] * (ABNORMAL) Differential (05/01/2024 11:52 AM CDT) Only the most recent of3 resultswithin the time period is included. Pathologist [facility] Total Cells 115 05/01/2024 2:05 PM CDT [facility] Manual Neutrophil % 64.0 43.2 - 72.7 % 05/01/2024 2:05 PM CDT [facility] Comment:The Neutrophil count includes Bands. Manual Lymphocyte % 26.0 16.8 - 46.2 % 05/01/2024 2:05 PM CDT [facility] Manual Monocyte % 4.0(L) 5.1 - 12.5 % 05/01/2024 2:05 PM CDT [facility] Manual Eosinophil % 3.0 0.4 - 6.3 % 05/01/2024 2:05 PM CDT [facility] Manual Basophil % 3.0(H) 0.2 - 1.4 % 05/01/2024 2:05 PM CDT [facility] Metamyelocyte % 2:05 PM CDT [facility] Comment:The Metamyelocyte co unt includes Myelocytes. Manual Neutrophil Abs 2.43 1.95 - 7.25 K/uL 05/01/2024 2:05 PM CDT [facility] Manual Lymphocyte Abs 0.99(L) 1.01 - 3.24 K/uL 05/01/2024 2:05 PM CDT [facility] Manual Monocyte Abs 0.15(L) 0.24 - 0.85 K/uL 05/01/2024 2:05 PM CDT [facility] Manual Eosinophil Abs 0.11 0.02 - 0.50 K/uL 05/01/2024 2:05 PM CDT [facility] Manual Basophil Abs 0.11(H) 0.02 - 0.09 K/uL 05/01/2024 2:05 PM CDT [facility] RBC Morphology PRESENT 05/01/2024 2:05 PM CDT [facility] PLT Morph Normal Normal 05/01/2024 2:05 PM CDT [facility] Schistocyte Few 05/01/2024 2:05 PM CDT [facility] Anisocytosis Present(A) (none) 05/01/2024 2:05 PM CDT [facility] Poikilocytosis Present(A) (none) 05/01/2024 2:05 PM CDT [facility] Ovalocyte Present(A) (none) 05/01/2024 2:05 PM CDT [facility] Tear Drop Present(A) (none) 05/01/2024 2:05 PM CDT [facility] Microcyte Present(A) (none) 05/01/2024 2:05 PM CDT [facility] Slide Comment SEE NOTE 05/01/2024 2:05 PM CDT [facility] Comment:PLT: Platelet morpho logy normal Blood Peripheral blood specimen / Unknown Venipuncture / Unknown 05/01/2024 11:52 AM CDT 05/01/2024 11:59 AM CDT us Mali Hughes APRN LAB BLOOD ORDERABLES Final Re sult [facility] Unless otherwise noted, all lab tests performed by: Division of Pathology and Laboratory Medicine [address] [place] [phone] * US Leg Venous Doppler Bilateral (11/03/2023 4:25 PM [facility]) Anatomical Region Laterality Modality Leg, Extremity Ultrasound 11/03/2023 4:32 PM [facility] Impressions 11/03/2023 4:43 PM [facility] Deep venous thrombosis seen bilaterally involving the peroneal veins. Findings discussed with Mali Hughes APRN via telephone at 11/03/2023 4:30 PM by Can Mcclain MD. ACTIONABLE ITEMS/RECOMMENDATIONS: See Impression I personally reviewed these image(s) along with the resident's/fellow's interpretations, certify that if a procedure was performed I was physically present, and agree with the final report. Narrative 11/03/2023 4:43 PM [facility] Examination: US LEG VENOUS DOPPLER BILATERAL on [...] Smear for Bone Marrow (11/03/2023 9:39 AM [facility]) Blood Peripheral blood specimen / Unknown Venipuncture / Unknown 11/03/2023 9:39 AM [facility] 11/03/2023 10:11 AM [facility] Mali [place] SERVER LAB BLOOD ORDERABLES Final Re sult [facility] Unless otherwise noted, all lab tests performed by: Division of Pathology and Laboratory Medicine [address] [place] [address] * Historical ABORh (10/25/2023 8:48 AM [facility]) ABORh A POS 10/25/2023 8:49 AM [facility] Blood Peripheral blood specimen / Unknown 10/25/2023 8:48 AM [facility] 10/25/2023 8:48 AM [facility] us Janes Manning SERVER BLOOD BANK TEST ORDERAB LES Final Result [facility] [address] [place] [address] [id number] [place] [address] after 10/22/2023 Insurance [facility] [employer] PPO [facility] [employer] Care Teams 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 PCP - General Leukemia 02/24/17 Telma Villarreal MD [address] [place] [address] [email or web address] PCP - External Referring Hematology 02/24/17 Steffany De La Torre [address] [place] [address] [email or web address] Physician Hematology and Oncology 06/29/18 Wicho Dial MD [address] [place] [address] [phone] [email or web address] Consulting Physician Urology 03/21/17 Sally Cano MD [address] [place] [address] [phone] [email or web address] Consulting Physician Cardiology 06/02/23
[2024-10-21] MEDS ORDERED: NA CHLORIDE 0.9% 500 ML ONE ×2 (09:02→13:29)
--- NOTE | 2024-10-21 09:12 | RAD REPORT ---
Procedure: Chest Single View HISTORY: Cough COMPARISON: 2021 FINDINGS: The lungs appear clear of acute infiltrate. No significant pleural effusion noted. The heart is borderline enlarged. IMPRESSION: No acute abnormality is displayed.
[2024-10-21 09:21] LABS: Specific Gravity 1.018 (1.005-1.030); Sqamous Epithelial None Seen /HPF (None Seen); Urine Bacteria None Seen /HPF (<20); Urine Bilirubin NEGATIVE (Negative); Urine Blood 1+ (Negative); Urine Clarity Clear (Clear); Urine Color Yellow (Yellow); Urine Culture Reflex Order NOT NEEDED; Urine Glucose NEGATIVE (Negative); Urine Ketones NEGATIVE (Negative); Urine Microscopic Reflex YN ORDER UMIC; Urine Mucus 1+ /HPF (None Seen); Urine Nitrite NEGATIVE (Negative); Urine Protein NEGATIVE (Negative); Urine RBC <5 /HPF (None Seen); Urine Urobilinogen Normal (Normal); Urine WBC <5 /HPF (<5); Urine pH 5.5 (5.0-7.0)
[2024-10-21 09:30] LABS: Absolute Lymphocytes (CBC) 0.5 K/uL (0.7-4.9); Absolute Neutrophil 0.7 K/uL (1.8-8.0); RBC Red Blood Cell Count 1.38 M/uL (4.33-5.43)
[2024-10-21 09:33] LABS: Absolute Monocytes 0.1 K/uL (0.1-1.3); Basophils % 2.1 % (0-1.3); Eosinophils % 2.6 % (0-4.4); Hematocrit 14.3 % (39.6-49.0); Lymphocytes % 34.4 % (15.3-44.8); MCH 34.7 pg (27.0-35.0); MCHC 33.5 g/dL (32.0-36.0); MCV 103.6 fL (80-100); MPV 9.1 fL (7.6-11.3); Monocytes % 9.9 % (3.3-12.3); Nucleated Red Blood Cells % 0.3 % (0-0); Platelets 91 thou/uL (152-406); Red Cell Distribution Width 26.5 % (12.1-15.2)
[2024-10-21 09:37] LABS: Hemoglobin 4.8 g/dL (13.6-17.9)
[2024-10-21 09:43] LABS: PT Prothrombin Time 17.1 SECONDS (9.4-12.5); Protime INR 1.55
[2024-10-21 09:48] LABS: Albumin 3.6 g/dL (3.4-5.0); Albumin/Globulin Ratio 1.3 (1.1-1.8); Anion Gap 7.9 mEq/L (5.0-15.0); Bilirubin Direct 0.4 mg/dL (0-0.2); Bilirubin Indirect, Calculated 0.9 mg/dL (0.2-0.8); Bilirubin Total 1.3 mg/dL (0.2-1.0); Globulin 2.8 g/dL (2.3-3.5); Magnesium 1.9 mg/dL (1.6-2.4); Potassium 3.9 mEq/L (3.5-5.1); Protein, Total 6.4 g/dL (6.4-8.2); Troponin High Sensitivity 7.6 pg/mL (<58.9)
[2024-10-21] MEDS ORDERED: ACETAMINOPHEN 325 MG TABLET ONE (09:56)
[2024-10-21] MEDS ORDERED: DIPHENHYDRAMINE 50 MG/ML VIAL ONE (09:56)
[2024-10-21 10:17] LABS: Anisocytosis 3+; Blood Morphology Comment NOTED (NOT SEEN); Platelet Estimate DECR; Teardrop Cell FEW; White Blood Cell Scan OK (OK)
--- NOTE | 2024-10-21 11:47 | EDPHYS ---
Physician Documentation [facility] Name: Juan Miguel Aguilar Age: 79 yrs Sex: Male : 1945 Arrival Date: 10/21/2024 Time: 08:33 Bed 5 Private MD: SILVINO Physician Ravi Rubio HPI: 10/21 10:09 This 79 yrs old Male presents to ER via Ambulatory with complaints of jocelyne Abnormal Lab Results, SAMANTHA SENT BLOOD LEVELS AT 5. 10:09 . Onset: The symptoms/episode began/occurred 2 day(s) ago. Severity of symptoms: At [facility] their worst the symptoms were mild in the emergency department the symptoms are unchanged. The patient has not experienced similar symptoms in the past. 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 - Infectious Disease History:: Denies. - Social history:: Smoking status: Patient/guardian denies using tobacco, but has a distant history of tobacco abuse. - Family history:: not pertinent. ROS: 10:11 Constitutional: Negative for fever, chills, and weight loss, Eyes: Negative for injury, jocelyne pain, redness, and discharge, ENT: Negative for injury, pain, and discharge, Neck: Negative for injury, pain, and swelling, Cardiovascular: Negative for chest pain, palpitations, and edema, Respiratory: Negative for shortness of breath, cough, wheezing, and pleuritic chest pain, Abdomen/GI: Negative for abdominal pain, nausea, vomiting, diarrhea, and constipation, Back: Negative for injury and pain, : Negative for injury, bleeding, discharge, and swelling, MS/Extremity: Negative for injury and deformity, Psych: Negative for depression, anxiety, suicide ideation, homicidal ideation, and hallucinations, Allergy/Immunology: Negative for hives, rash, and allergies, Endocrine: Negative for neck swelling, polydipsia, polyuria, polyphagia, and marked weight changes, Hematologic/Lymphatic: Negative for swollen nodes, abnormal bleeding, and unusual bruising, 10:11 Skin: Positive for pallor, 10:11 Neuro: Positive for dizziness, Exam: 10:11 Constitutional: This is a well developed, well nourished patient who is awake, alert, jocelyne and in no acute distress. Head/Face: Normocephalic, atraumatic. Eyes: Pupils equal round and reactive to light, extra-ocular motions intact. Lids and lashes normal. Conjunctiva and sclera are non-icteric and not injected. Cornea within normal limits. Periorbital areas with no swelling, redness, or edema. ENT: Nares patent. No nasal discharge, no septal abnormalities noted. Tympanic membranes are normal and external auditory canals are clear. Oropharynx with no redness, swelling, or masses, exudates, or evidence of obstruction, uvula midline. Mucous membranes moist. Neck: Trachea midline, no thyromegaly or masses palpated, and no cervical lymphadenopathy. Supple, full range of motion without nuchal rigidity, or vertebral point tenderness. No Meningismus. Chest/axilla: Normal chest wall appearance and motion. Nontender with no deformity. No lesions are appreciated. Cardiovascular: Regular rate and rhythm with a normal S1 and S2. No gallops, murmurs, or rubs. Normal PMI, no JVD. No pulse deficits. Respiratory: Lungs have equal breath sounds bilaterally, clear to auscultation and percussion. No rales, rhonchi or wheezes noted. No increased work of breathing, no retractions or nasal flaring. Abdomen/GI: Soft, non-tender, with normal bowel sounds. No distension or tympany. No guarding or rebound. No evidence of tenderness throughout. Back: No spinal tenderness. No costovertebral tenderness. Full range of motion. Male : Normal genitalia with no discharge or lesions. MS/ Extremity: Pulses equal, no cyanosis. Neurovascular intact. Full, normal range of motion., bilateral aka Neuro: Awake and alert, GCS 15, oriented to person, place, time, and situation. Cranial nerves II-XII grossly intact. Motor strength 5/5 in all extremities. Sensory grossly intact. Cerebellar exam normal. Normal gait. Psych: Awake, alert, with orientation to person, place and time. Behavior, mood, and affect are within normal limits. 10:11 Skin: Appearance: Color: pale, abscess, not appreciated, cellulitis, is not appreciated, induration, is not appreciated, 10:21 ECG was reviewed by the Attending Physician. [facility] Vital Signs: 08:56 BP 100 / 61; Pulse 83; Resp 16; Temp 98.5; Pulse Ox 97% ; Weight 63.5 kg; Height 5 ft. db 6 in. ; Pain 0/10; 09:09 BP 107 / 54; Pulse 82; Resp 15; Pulse Ox 97% on R/A; ko1 10:45 BP 96 / 48; Pulse 69; Resp 16; Temp 98.4; Pulse Ox 97% ; db 11:39 BP 99 / 56; Pulse 84; Resp 18; Temp 98.6; Pulse Ox 100% ; db 12:00 BP 104 / 52; Pulse 62; Resp 18; Temp 98.1; Pulse Ox 98% on R/A; db 13:25 BP 90 / 49; Pulse 68; Resp 15; Pulse Ox 100% ; db 13:30 BP 97 / 57; Pulse 66; Resp 16; Pulse Ox 100% on R/A; db 13:45 BP 98 / 52; Pulse 68; Resp 18; Pulse Ox 96% ; db 14:00 BP 98 / 50; Pulse 68; Resp 16; Pulse Ox 98% on R/A; db 08:56 Body Mass Index 22.60 (63.50 kg, 167.64 cm) db 08:56 Pain Scale: Adult db 10:45 1ST BLOOD TRANSFUSION db 11:39 1ST BLOOD TRANSFUSION COMPLETE db 12:00 2ND BLOOD TRANSFUSION INITIATED db 13:[address] RUBIO NOTIFIED OF BP AND GIVEN 500 ML NS db MDM: 08:38 Medical Screening Exam initiated jocelyne 10:14 Differential Diagnosis altered mental status, sepsis, flu. Data reviewed: vital signs, [facility] nurses notes, lab test result(s), CBC, electrolytes, EKG, radiologic studies, plain films. Consideration of Admission/Observation Escalation of care including admission/observation considered. I considered the following discharge prescriptions or medication management in the emergency department Medications were administered in the Emergency Department. See MAR. Independent interpretation of the following test(s) in the Emergency Department EKG: See my EKG interpretation above. Test considered but Not performed: CT: NO CT. Historians other than the Patient: Spouse/Significant Other: WELL INFORMED. Care significantly affected by the following chronic conditions: Cancer, MDS. 10/21 08:39 Order name: Type And Screen [facility] 10/21 08:39 Order name: Basic Metabolic Panel; Complete Time: 10:03 [facility] 10/21 08:39 Order name: CBC with Diff; Complete Time: 11:38 jocelyne 10/21 08:39 Order name: LFT's; Complete Time: 10:03 [facility] 10/21 08:39 Order name: Magnesium; Complete Time: 10:03 jocelyne 10/21 08:39 Order name: NT PRO-BNP; Complete Time: 10:03 jocelyne 10/21 08:39 Order name: PT-INR; Complete Time: 10:03 [facility] 10/21 08:39 Order name: Troponin HS; Complete Time: 10:03 [facility] 10/21 08:39 Order name: Lipase; Complete Time: 10:03 [facility] 10/21 08:39 Order name: Urinalysis w/ reflexes; Complete Time: 10:03 [facility] 10/21 09:37 Order name: Packed RBC Leukored EDMD 10/21 09:40 Order name: CBC Smear Scan; Complete Time: 11:38 EDMS 10/21 08:39 Order name: XRAY Chest (1 view); Complete Time: 10:03 [facility] 10/21 08:39 Order name: Cardiac monitoring; Complete Time: 08:54 [facility] 10/21 08:39 Order name: EKG - Nurse/Tech; Complete Time: 09:01 [facility] 10/21 08:39 Order name: IV Saline Lock; Complete Time: 09:33 [facility] 10/21 08:39 Order name: Labs collected and sent; Complete Time: 09:33 [facility] 10/21 08:39 Order name: O2 Per Protocol; Complete Time: 08:54 [facility] 10/21 08:39 Order name: O2 Sat Monitoring; Complete Time: 08:54 [facility] EC:21 Rate is 76 beats/min. Rhythm is regular. QRS [place] is Normal. MI interval is normal. QRS jocelyne interval is normal. QT interval is normal. No Q waves. T waves are Normal. No ST changes noted. Clinical impression: NSR w/ Non-specific ST/T Changes and No evidence of ischemia. Interpreted by me. Reviewed by me. Administered Medications: 09:25 Drug: NS 0.9% IV 500 ml 500 ml IV at 1 bolus once; to be given as a bolus over 30 db minutes Volume: 500 ml; Route: IV; Rate: 1 bolus; Site: right antecubital; 10:45 Follow up: Response: No adverse reaction; IV Status: Completed infusion; IV Intake: db 500ml 10:20 Drug: Acetaminophen PO 650 mg PO once Route: PO; db 12:25 Follow up: Response: No adverse reaction db 10:25 Drug: diphenhydrAMINE IVP 12.5 mg IVP once Route: IVP; Site: right antecubital; db 12:27 Follow up: Response: No adverse reaction db 13:30 Drug: NS 0.9% IV 500 ml 500 ml IV at 1 bolus once; to be given as a bolus over 30 db minutes Volume: 500 ml; Route: IV; Rate: 1 bolus; Site: right antecubital; 14:16 Follow up: Response: No adverse reaction; IV Status: Completed infusion; IV Intake: db 500ml Disposition Summary: 10/21/24 11:46 Discharge Ordered Notes: Location: Home jocelyne Problem: an acute exacerbation jocelyne Symptoms: have improved jocelyne Condition: Stable jocelyne 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 jocelyne - Other pancytopenia jocelyne - Weakness jocelyne Followup: jocelyne - With: Private Physician - When: 2 - 3 days - Reason: Recheck today's complaints, Continuance of care, Re-evaluation by your physician Discharge Instructions: - Discharge Summary Sheet jocelyne - Blood Transfusion, Adult jocelyne - Weakness jocelyne - Fatigue jocelyne - Blood Transfusion, Adult, [id number]-[id number] jocelyne - Weakness, Bkmy-[id number] jocelyne - Blood Transfusion, Adult, Care After, Cwed-[id number] jocelyne - Blood Transfusion, Adult, Care After jocelyne - Pancytopenia jocelyne - Managing Low Blood Counts During Cancer Treatment jocelyne Forms: - Medication Reconciliation Form jocelyne - Antibiotic Education jocelyne - Prescription Opioid Use jocelyne - Patient Portal Instructions jocelyne - Leadership Thank You Letter jocelyne Signatures: Dispatcher [employer] EDRavi Nails MD MD cha Benton, Danielle, RN RN db Corrections: (The following items were deleted from the chart) 08:40 08:40 BASIC METABOLIC PANEL+C.LAB.BRZ ordered. EDMS EDMS 08:40 08:40 CBC+H.LAB.BRZ ordered. EDMS EDMS 08:40 08:40 HEPATIC FUNCTION+C.LAB.BRZ ordered. EDMS EDMS 08:40 08:40 MAGNESIUM+C.LAB.BRZ ordered. EDMS EDMS 08:40 08:40 PROBNP+C.LAB.BRZ ordered. EDMS EDMS 08:40 08:40 PROTIME (+INR)+COAG.LAB.BRZ ordered. EDMS EDMS 08:40 08:40 Troponin High Sensitivity+C.LAB.BRZ ordered. EDMS EDMS 08:40 08:40 LIPASE+C.LAB.BRZ ordered. EDMS EDMS 08:40 08:40 TYPE AND SCREEN+BB.LAB.BRZ ordered. EDMS EDMS 08:40 08:40 Urinalysis+U.LAB.BRZ ordered. EDMS EDMS 08:40 08:40 Chest Single View+RAD.RAD.BRZ ordered. EDMS EDMS
--- NOTE | 2024-10-21 11:47 | ER ---
Nurse's Notes 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 BLOOD DRAW YESTERDAY AT [facility] TOLD TO db COME IN TODAY FOR TRANSFUSION. HEMOGLOBIN WAS 7. Coronavirus screen: Client denies travel out of the [place] in the last 14 days. At this time, the client does not indicate any symptoms associated with coronavirus-19. Ebola Screen: Patient negative for fever greater than or equal to 101.5 degrees Fahrenheit, and additional compatible Ebola Virus Disease symptoms Patient denies exposure to infectious person. Patient denies travel to an Ebola-affected area in the 21 days before illness onset. No symptoms or risks identified at this time. Initial Sepsis Screen: Does the patient meet any 2 criteria? No. Patient's initial sepsis screen is negative. Does the patient have a suspected source of infection? No. Patient's initial sepsis screen is negative. Risk Assessment: Do you want to hurt yourself or someone else? Patient reports no desire to harm self or others. Onset of symptoms was October 21, 2024. 08:56 Method Of Arrival: Ambulatory db 08:56 Acuity: SCARLET 3 db Triage Assessment: 08:56 General: Appears in no apparent distress. comfortable, Behavior is calm, cooperative. db Pain: Denies pain. Neuro: Level of Consciousness is awake, alert, obeys commands, Oriented to person, place, time, situation. Respiratory: Airway is patent Respiratory effort is even, unlabored, Respiratory pattern is regular, symmetrical. 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 - Infectious Disease History:: Denies. - Social history:: Smoking status: Patient/guardian denies using tobacco, but has a distant history of tobacco abuse. - Family history:: not pertinent. Screenin:36 [facility] ED Fall Risk Assessment (Adult) History of falling in the last 3 months, db including since admission No falls in past 3 months (0 pts) Confusion or Disorientation No (0 pts) Intoxicated or Sedated No (0 pts) Impaired Gait No (0 pts) Mobility Assist Device Used No (0 pt) Altered Elimination No (0 pt) Score/Fall Risk Level 0 - 2 = Low Risk Oriented to surroundings, Maintained a safe environment. Abuse screen: Denies threats or abuse. Denies injuries from another. Nutritional screening: No deficits noted. Tuberculosis screening: No symptoms or risk factors identified. Assessment: 09:30 Reassessment: Patient appears in no apparent distress at this time. Patient and/or db family updated on plan of care and expected duration. Pain level reassessed. Patient is alert, oriented x 3, equal unlabored respirations, skin warm/dry/pink. General: Appears in no apparent distress. comfortable, Behavior is calm, cooperative. Pain: Denies pain. Neuro: Level of Consciousness is awake, alert, obeys commands, Oriented to person, place, time, situation. Cardiovascular: No deficits noted. Respiratory: Airway is patent Respiratory effort is even, unlabored, Respiratory pattern is regular, symmetrical. GI: No deficits noted. No signs and/or symptoms were reported involving the gastrointestinal system. : No deficits noted. No signs and/or symptoms were reported regarding the genitourinary system. EENT: No deficits noted. No signs and/or symptoms were reported regarding the EENT system. Derm: No deficits noted. No signs and/or symptoms reported regarding the dermatologic system. 10:45 Reassessment: Patient appears in no apparent distress at this time. Patient and/or db family updated on plan of care and expected duration. Pain level reassessed. Patient is alert, oriented x 3, equal unlabored respirations, skin warm/dry/pink. 1ST UNIT OF PRBC STARTED SEE BLOOD TRANSFUSION RECORD. 11:55 Reassessment: DC PENDING BLOOD TRANSFUSION COMPLETION. db 12:00 Reassessment: 2ND UNIT OF PRBC STARTED SEE BLOOD TRANSFUSION RECORD. db 12:00 Reassessment: Patient appears in no apparent distress at this time. Patient and/or db family updated on plan of care and expected duration. Pain level reassessed. Patient is alert, oriented x 3, equal unlabored respirations, skin warm/dry/pink. Patient states feeling better. 13:25 Reassessment: BLOOD TRANSFUSION COMPLETE. BP 90/[address] RUBIO. NEW ORDER FOR db NS 500 ML BOLUS RECEIVED. 14:15 Reassessment: Patient appears in no apparent distress at this time. Patient and/or db family updated on plan of care and expected duration. Pain level reassessed. Patient is alert, oriented x 3, equal unlabored respirations, skin warm/dry/pink. Patient states feeling better. Patient states symptoms have improved. Vital Signs: 08:56 BP 100 / 61; Pulse 83; Resp 16; Temp 98.5; Pulse Ox 97% ; Weight 63.5 kg; Height 5 ft. db 6 in. ; Pain 0/10; 09:09 BP 107 / 54; Pulse 82; Resp 15; Pulse Ox 97% on R/A; ko1 10:45 BP 96 / 48; Pulse 69; Resp 16; Temp 98.4; Pulse Ox 97% ; db 11:39 BP 99 / 56; Pulse 84; Resp 18; Temp 98.6; Pulse Ox 100% ; db 12:00 BP 104 / 52; Pulse 62; Resp 18; Temp 98.1; Pulse Ox 98% on R/A; db 13:25 BP 90 / 49; Pulse 68; Resp 15; Pulse Ox 100% ; db 13:30 BP 97 / 57; Pulse 66; Resp 16; Pulse Ox 100% on R/A; db 13:45 BP 98 / 52; Pulse 68; Resp 18; Pulse Ox 96% ; db 14:00 BP 98 / 50; Pulse 68; Resp 16; Pulse Ox 98% on R/A; db 08:56 Body Mass Index 22.60 (63.50 kg, 167.64 cm) db 08:56 Pain Scale: Adult db 10:45 1ST BLOOD TRANSFUSION db 11:39 1ST BLOOD TRANSFUSION COMPLETE db 12:00 2ND BLOOD TRANSFUSION INITIATED db 13:[address] RUBIO NOTIFIED OF BP AND GIVEN 500 ML NS db ED Course: 08:35 Patient arrived in ED. sj2 08:38 Ravi Rubio MD is Attending Physician. jocelyne 08:53 Niesha Hernandez, RN is Primary Nurse. db 08:56 Arm band placed on Patient placed. db 08:57 XRAY Chest (1 view) In Process Unspecified. EDMS 09:01 EKG done, by ED staff, reviewed by Ravi Rubio MD. em1 09:05 Missed attempt(s): 20 gauge in right wrist. Bleeding controlled, band aid applied, db catheter tip intact. 09:15 Initial lab(s) drawn, by me, sent to lab. Urine collected:. Inserted saline lock: 20 db gauge in right antecubital area, using aseptic technique. Blood collected. Flushed with 10 mL NS. 09:36 Triage completed. db 09:50 Consent for blood and/or blood product transfusion explained by staff, explained by db physician, signed by patient. 10:00 Provided Education on: Blood Transfusion. db 12:36 Patient has correct armband on for positive identification. Bed in low position. Call db light in reach. Side rails up X 1. Client placed on continuous cardiac and pulse oximetry monitoring. NIBP monitoring applied. groundwater monitoring technician on. Pulse ox on. NIBP on. Warm blanket given. Pillow given. 14:14 No provider procedures requiring assistance completed. IV discontinued, intact, db bleeding controlled, No redness/swelling at site. Administered Medications: 09:25 Drug: NS 0.9% IV 500 ml 500 ml IV at 1 bolus once; to be given as a bolus over 30 db minutes Volume: 500 ml; Route: IV; Rate: 1 bolus; Site: right antecubital; 10:45 Follow up: Response: No adverse reaction; IV Status: Completed infusion; IV Intake: db 500ml 10:20 Drug: Acetaminophen PO 650 mg PO once Route: PO; db 12:25 Follow up: Response: No adverse reaction db 10:25 Drug: diphenhydrAMINE IVP 12.5 mg IVP once Route: IVP; Site: right antecubital; db 12:27 Follow up: Response: No adverse reaction db 13:30 Drug: NS 0.9% IV 500 ml 500 ml IV at 1 bolus once; to be given as a bolus over 30 db minutes Volume: 500 ml; Route: IV; Rate: 1 bolus; Site: right antecubital; 14:16 Follow up: Response: No adverse reaction; IV Status: Completed infusion; IV Intake: db 500ml Medication: 10:45 Blood products: PRBCs X 1 unit given. db 12:00 VIS not applicable for this client. Blood products: PRBCs X 2 units given. db Intake: 10:45 IV: 500ml; Total: 500ml. db 14:16 IV: 500ml; Total: 1000ml. db Outcome: 11:46 Discharge ordered by . jocelyne 14:14 Discharged to home ambulatory, with family, db 14:14 Condition: stable 14:14 Discharge instructions given to patient, Instructed on discharge instructions, follow up and referral plans. 14:16 Patient left the ED. db Signatures: Dispatcher [employer] EDRavi Nails MD MD cha Martinez, Eric em1 Gale Howell RN RN koNiesha Langley RN RN Marita Garibay2
[2024-10-21 14:45] VITALS: TEMP 98.1
[2024-10-21 14:51] VITALS: BP 98/50; O2SAT 98
--- NOTE | 2024-10-29 11:14 | EKG ---
Test Date: 2024-10-21 Test Time: 08:58:46 Tail Dogger: AMBER MEASUREMENT RESULTS: Intervals: Rate: 76 AL: 156 QRSD: 98 QT: 398 QTc: 447 [place]: P: 54 AL: 156 QRS: 64 T: 72 INTERPRETIVE STATEMENTS: Sinus rhythm with occasional premature ventricular complexes Nonspecific T wave abnormality Abnormal ECG Compared to ECG 02/14/2022 20:55:00 Ventricular premature complex(es) now present T-wave abnormality now present Electronically Signed On 10-29-24 11:02:06 [employer] by Hany Sosa
== END 2024-10-21 14:16 | disposition home or self-care (01) ==
LOC: ER 08:33 → SUPCPDRO 08:33 → ER 14:16
DX: C94.6 Myelodysplastic disease, not elsewhere classified (principal); D63.8 Anemia in other chronic diseases classified elsewhere; D61.818 Other pancytopenia; R53.1 Weakness; Z79.01 Long term (current) use of anticoagulants
CPT/HCPCS: 96361; 93005; 85025; 81001; 80048; 36415; 86900; 83735; 86850; 85610; 86901; 80076; 86920 ×2; 84484; 83690; 83880; 71045; 36430; 96374; 99285; J1200; P9016 ×2; J7040 ×2

== ENCOUNTER 2024-10-31 07:22 | Day surgery (SDC) | payer OTHER ==
[2024-10-31] MEDS ORDERED: NA CHLORIDE 0.9% 250 ML ONE (07:48)
[2024-10-31 12:47] LABS: Hematocrit 22.2 % (39.6-49.0); Hemoglobin 7.6 g/dL (13.6-17.9)
[2024-11-02 02:03] VITALS: BP 116/56; TEMP 98.2; O2SAT 100; BMI 22.6
== END 2024-10-31 12:45 | disposition home or self-care (01) ==
LOC: DS 07:22
PROVIDERS: ATTEND Internal Medicine
DX: D46.9 Myelodysplastic syndrome, unspecified (principal); E83.19 Other disorders of iron metabolism; I10 Essential (primary) hypertension
CPT/HCPCS: 36415; 36430; 85014; 85018; 86850; 86900; 86901; 86920; J7050; P9016

== ENCOUNTER 2024-11-08 07:31 | Day surgery (SDC) | payer OTHER ==
[2024-11-08 08:33] VITALS: BP 99/53; TEMP 98.1; O2SAT 98; BMI 22.6
[2024-11-08] MEDS ORDERED: NA CHLORIDE 0.9% 250 ML ONE ×2 (08:54→11:25)
[2024-11-08 16:00] LABS: Hematocrit 23.1 % (39.6-49.0)
== END 2024-11-08 15:45 | disposition home or self-care (01) ==
LOC: DS 07:31
PROVIDERS: ATTEND Internal Medicine
DX: E83.19 Other disorders of iron metabolism (principal); I10 Essential (primary) hypertension; D46.9 Myelodysplastic syndrome, unspecified; I82.453 Acute embolism and thrombosis of peroneal vein, bilateral
CPT/HCPCS: 36415; 86900; 86850; 86901; 86920 ×2; 85018; 85014; 36430; P9016 ×2; J7050 ×2

== ENCOUNTER → 2024-11-21 | Day surgery (SDC) | payer OTHER ==
[2024-11-21] MEDS: NA CHLORIDE 0.9% 250 ML ONE (08:15)
[2024-11-21 09:01] VITALS: BMI 22.6
[2024-11-21 12:55] LABS: Hematocrit 21.7 % (39.6-49.0); Hemoglobin 7.4 g/dL (13.6-17.9)
[2024-11-21 13:27] VITALS: BP 108/53; TEMP 98.2; O2SAT 100
== END ==
LOC: DS 07:13
PROVIDERS: ATTEND Internal Medicine
DX: E83.19 Other disorders of iron metabolism (principal); I10 Essential (primary) hypertension; D46.9 Myelodysplastic syndrome, unspecified; I82.453 Acute embolism and thrombosis of peroneal vein, bilateral
CPT/HCPCS: 36415; 86900; 86850; 86901; 86920; 85018; 85014; 36430; P9016; J7050

== ENCOUNTER 2024-11-28 07:14 | Day surgery (SDC) | payer OTHER ==
[2024-11-28] MEDS ORDERED: NA CHLORIDE 0.9% 250 ML ONE (07:43)
[2024-11-28 08:40] VITALS: BMI 22.6
[2024-11-28 12:54] LABS: Hematocrit 24.6 % (39.6-49.0); Hemoglobin 8.3 g/dL (13.6-17.9)
[2024-11-28 13:06] VITALS: BP 120/50; TEMP 98.5; O2SAT 96
== END 2024-11-28 12:40 | disposition home or self-care (01) ==
LOC: DS 07:14
PROVIDERS: ATTEND Internal Medicine
DX: E83.19 Other disorders of iron metabolism (principal); I10 Essential (primary) hypertension; D46.9 Myelodysplastic syndrome, unspecified; D72.818 Other decreased white blood cell count; I82.453 Acute embolism and thrombosis of peroneal vein, bilateral
CPT/HCPCS: 36415; 86900; 86850; 86901; 86920; 85018; 85014; 36430; P9016; J7050

== ENCOUNTER → 2024-12-19 | Day surgery (SDC) | payer OTHER ==
[2024-12-19 08:57] VITALS: BP 112/57; TEMP 98; O2SAT 100; BMI 22.6
[2024-12-19 12:55] LABS: Hematocrit 22.7 % (39.6-49.0); Hemoglobin 7.7 g/dL (13.6-17.9)
== END ==
LOC: DS 07:21
PROVIDERS: ATTEND Internal Medicine
DX: E83.19 Other disorders of iron metabolism (principal); I10 Essential (primary) hypertension; D46.9 Myelodysplastic syndrome, unspecified; I82.453 Acute embolism and thrombosis of peroneal vein, bilateral
CPT/HCPCS: 36415; 86900; 86850; 86901; 86920; 85018; 85014; 36430; P9016; J7050

== ENCOUNTER 2025-03-06 09:28 | Day surgery (SDC) | payer OTHER ==
[2025-03-06] MEDS ORDERED: NA CHLORIDE 0.9% 250 ML ONE (09:55)
[2025-03-06 12:25] VITALS: TEMP 98.2; O2SAT 100
[2025-03-06 12:26] VITALS: BMI 22.6
[2025-03-06 12:33] VITALS: BP 109/50
[2025-03-06 15:11] LABS: Hematocrit 23.7 % (39.6-49.0); Hemoglobin 8.2 g/dL (13.6-17.9)
== END 2025-03-06 12:20 | disposition home or self-care (01) ==
LOC: DS 09:28
PROVIDERS: ATTEND Internal Medicine
DX: D64.9 Anemia, unspecified (principal); E83.19 Other disorders of iron metabolism; I10 Essential (primary) hypertension; I82.453 Acute embolism and thrombosis of peroneal vein, bilateral
CPT/HCPCS: 36415; 86900 ×2; 86880; 86850; 86870 ×2; 86901; 86920; 85018; 85014; 86922; 36430; 86860; 86905; P9016; J7050

== ENCOUNTER 2025-06-11 07:22 | Day surgery (SDC) | payer OTHER ==
[2025-06-11] MEDS ORDERED: NA CHLORIDE 0.9% 250 ML ONE (07:42)
[2025-06-11 08:38] VITALS: TEMP 98
[2025-06-11 08:40] VITALS: BP 109/60; O2SAT 96
[2025-06-11 08:43] VITALS: BMI 22.2
[2025-06-11 15:42] LABS: Hematocrit 26.2 % (39.6-49.0); Hemoglobin 9.0 g/dL (13.6-17.9)
== END 2025-06-11 13:39 | disposition home or self-care (01) ==
LOC: DS 07:22
PROVIDERS: ATTEND Internal Medicine
DX: D46.9 Myelodysplastic syndrome, unspecified (principal); E83.19 Other disorders of iron metabolism; I10 Essential (primary) hypertension; I82.453 Acute embolism and thrombosis of peroneal vein, bilateral
CPT/HCPCS: 36415; 86900; 86850; 86870; 86901; 86920 ×2; 85018; 85014; 86922 ×2; 36430; P9016 ×2; J7050

== ENCOUNTER → 2025-06-13 | Day surgery (SDC) | payer OTHER ==
[~2025-06-13] MED LIST changes: -NA CHLORIDE 0.9% 250 ML ONE; +NA CHLORIDE 0.9% 500 ML ONE
[2025-06-13] MEDS: DIPHENHYDRAMINE 50 MG/ML VIAL ONE (08:42)
[2025-06-13] MEDS: HYDROCORTISONE SUC 100 MG INJ ONE (08:42)
[2025-06-13] MEDS: ACETAMINOPHEN 325 MG TABLET ONE (08:42)
[2025-06-13 10:42] VITALS: BMI 22.2
[2025-06-13 10:44] VITALS: BP 116/60; TEMP 98.6; O2SAT 98
== END ==
LOC: DS 07:48
PROVIDERS: ATTEND Internal Medicine
DX: E83.19 Other disorders of iron metabolism (principal); D46.9 Myelodysplastic syndrome, unspecified; I82.453 Acute embolism and thrombosis of peroneal vein, bilateral
CPT/HCPCS: 36430; 86850; 86870; 86900; 86901; J1200; J1720; J7040; P9035; P9100

== ENCOUNTER 2025-07-03 07:03 | Day surgery (SDC) | payer OTHER ==
[2025-07-03] MEDS ORDERED: NA CHLORIDE 0.9% 500 ML ONE (07:40)
[2025-07-03 09:34] VITALS: BMI 22.2
[2025-07-03 13:59] VITALS: BP 119/61; TEMP 98.7; O2SAT 98
[2025-07-03 16:11] LABS: Hematocrit 29.7 % (39.6-49.0); Hemoglobin 10.1 g/dL (13.6-17.9)
== END 2025-07-03 13:43 | disposition home or self-care (01) ==
LOC: DS 07:03
PROVIDERS: ATTEND Internal Medicine
DX: E83.19 Other disorders of iron metabolism (principal); D46.9 Myelodysplastic syndrome, unspecified; I10 Essential (primary) hypertension; I82.453 Acute embolism and thrombosis of peroneal vein, bilateral
CPT/HCPCS: 36415 ×2; 86900; 86850; 86870; 86901; 86920 ×2; 85018 ×2; 85014; 86922 ×2; 36430; P9016 ×2; J7040

== ENCOUNTER 2025-07-23 20:56 | Inpatient (IN) | payer OTHER ==
--- OUTSIDE RECORDS SUMMARY | 2025-07-23 21:01 | XMS REPORT | Clinical Summary ---
Author Name Unknown Organization [facility] Address [address] [place] [address] Care Team Providers Care Customer Project Manager Name Role Phone Esther Nair MD Primary Care Provider [phone] Telma Villarreal MD Unavailable Steffany De La Torre Unavailable [phone] Wicho Dial MD Unavailable [phone] Sally Cano MD Unavailable Allergies Active [...] drop Administer into both ears as needed. 01/20/20 21 Active EPINEPHrine (EPIPEN) 0.3 mg/0.3 mL (1:1,000) injection Inject into the shoulder, thigh, or buttocks as needed. 02/16/20 22 Active OMEPRAZOLE ORAL Take 20 mg by mouth as needed (prn). Takes omeprazole-E, as needed Active ondansetron (Zofran) 8 mg tabletIndications :Myelodysplastic syndrome, not otherwise specified Take 1 tablet (8 mg) by mouth every 8 (eight) hours as needed for nausea or vomiting. 30 tablet 07/22/20 23 Active atorvastatin (Lipitor) 10 mg tabletIndications :Other hyperlipidemia Take 0.5 tablets (5 mg) by mouth at bedtime. 45 tablet 3 08/18/20 23 Active filgrastim-sndz (Zarxio) 480 mcg/0.8 mL prefilled syringe Inject 0.8 mL (480 mcg) under the skin as needed (last inj yesterday). Active apixaban (ELIQUIS) 2.5 mg tablet Take 1 tablet (2.5 mg) by mouth every 12 (twelve) hours. Active aspirin 81 mg EC tablet 1 tablet (81 mg) daily. 2023 Discontinued LUSPATERCEPT-AAMT SUBCUTANEOUS Inject under the skin every 21 days. 2023 Discontinued apixaban (Eliquis) 5 mg tabletIndications :Myelodysplastic syndrome, not otherwise specified,Acute embolism and thrombosis of other specified deep vein of lower extremity, bilateral Take 2 tablets (10 mg) by mouth every 12 (twelve) hours. After 10 days, decrease dose to 5mg (1 tablet) twice a day as instructed by provider. 60 tablet 3 11/03/19 24 2024 Discontinued furosemide (LASIX) 20 mg tabletIndications :Myelodysplastic syndrome, not otherwise specified,Bilater al lower limb edema Take 1 tablet (20 mg) by mouth as needed for edema. 90 tablet 2 05/01/20 24 2024 Discontinued Active Problems Problem Noted Date Diagnosed Date Current use of anticoagulant 05/12/2025 Leukocytosis 02/17/2025 Myelodysplastic syndrome 05/02/2024 Bilateral deep vein thromboses 11/04/2023 Overview (07/17/2025): [facility] Dx 07/17 regulatory import Bilateral lower limb edema 10/27/2023 H/O: myocardial [...] Encounters Date Type Department Care Team Description 07/22/2025 Orders Only Leukemia Center [facility] Main Bldg, 8th [place] [address] Lorri Ugarte PA-C Myelodysplastic syndrome, not otherwise specified (Primary Dx) 07/16/2025 4:45 PM CDT Telemedicine [facility] Main Bldg, 8th [place] [address] Esther Nair MD Myelodysplastic syndrome, not otherwise specified (Primary Dx); RARS; Anemia in neoplastic disease; Current use of anticoagulant; H/O: myocardial infarct at less than 60; Deep venous thrombosis <Bilateral> 06/06/2025 Orders Only Leuk[facility] Center [facility] Main Bldg, 8th [place] [address] Lorri Ugarte PA-Betito Myelodysplastic syndrome, not otherwise specified (Primary Dx) 06/04/2025 11:00 AM CDT Telemedicine [facility] [address] [facility] Main Bldg, 8th [place] [address] Esther Nair MD Myelodysplastic syndrome, not otherwise specified (Primary Dx); Current use of anticoagulant; H/O: myocardial infarct at less than 60; Anemia in neoplastic disease 05/10/2025 Orders Only Le[facility] Center [address] [facility] Main Bldg, 8th [place] [address] Lorri Ugarte PA-C Myelodysplastic syndrome, not otherwise specified (Primary Dx) 05/09/2025 4:30 PM CDT Telemedicine [facility] [address] [facility] Main Bldg, 8th [place] [address] Esther Nair MD Myelodysplastic syndrome, not otherwise specified (Primary Dx); Anemia in neoplastic disease; Current use of anticoagulant; H/O: myocardial infarct at less than 60 05/09/2025 Telephone [facility] Center [facility] Main dg, 8th [place] [address] Kristin Alvarado RN 05/08/2025 Orders Only Le[facility] Center [address] [place] [address] Main dg, 8th [place] [address] Lorri Ugarte PA-C 03/20/2025 Telephone Le[facility]emia Center [address] [place] [address] Main [facility], 8th [place] [address] Britney Ugarte RN 02/14/2025 11:15 AM CDT Follow-Up Le[facility] [address] [place] [address] Main [facility], 8th [place] [address] Esther Nair MD Myelodysplastic syndrome, not otherwise specified (Primary Dx); Anemia in neoplastic disease; Hyperlipidemia, not otherwise specified; Other secondary thrombocytopenia; Leukocytosis, not otherwise specified; H/O: myocardial infarct at less than 60 02/14/2025 9:38 AM CDT - 02/14/2025 11:59 PM CDT Hospital En[facility] [address] [place] [address] [place] [address] Elsie Watson PA Myelodysplastic syndrome, not otherwise specified Discharge Disposition: Home 02/14/2025 Orders Only Le[facility] [address] [place] [address] Main dg, 8th [place] [address] Olive Jackson PA-C Myelodysplastic syndrome, not otherwise specified (Primary Dx) 02/14/2025 Travel 12/20/2024 Orders Only [facility] [address] [place] [address] Main Bldg, 8th [place] [address] Raman Tapia MD 11/01/2024 11:15 AM [employer] Follow-Up Le[facility] [address] [place] [address], 8th [place] [address] Esther Nair MD Myelodysplastic syndrome, not otherwise specified (Primary Dx); Anemia in neoplastic disease; H/O: myocardial infarct at less than 60; Other neutropenia; Other secondary thrombocytopenia; Bilateral deep vein thromboses, not otherwise specified 11/01/2024 9:34 AM [employer] - 11/01/2024 11:59 PM [employer] Hospital [facility] [address] [place] [address] Elsie Watson PA Myelodysplastic syndrome, not otherwise specified Discharge Disposition: Home 11/01/2024 Travel 08/03/2024 Orders Only [facility] [address] [place] [address], 8th [place] [address] Elsie Watson PA Myelodysplastic syndrome, not otherwise specified (Primary Dx) 08/02/2024 11:56 AM CDT - 08/02/2024 11:59 PM CDT Hospital Encounter [facility] - Main Building [address] [place] [address], 2nd Floor, [place] [address] Elsie Watson PA Noble Holland, Crystal A, RN Myelodysplastic syndrome, not otherwise specified Discharge Disposition: Home 08/02/2024 11:00 AM CDT Follow-Up [facility] [address] [place] [address], 8th [place] [address] Esther Nair MD Myelodysplastic syndrome, not otherwise specified (Primary Dx); Other secondary thrombocytopenia; Bilateral deep vein thromboses, not otherwise specified; H/O: myocardial infarct at less than 60; Anemia in neoplastic disease; Neutropenia, not otherwise specified 08/02/2024 9:30 AM CDT - 08/02/2024 11:55 AM CDT [facility] [address] [place] [address] Desiree Guthrie APRN Myelodysplastic syndrome, not otherwise specified Discharge Disposition: Home 08/02/2024 Travel after 07/23/2024 Immunizations Immunization Administration Dates Next Due Influenza, injectable, quadr ivalent, preservative free 07/09/2021 Influenza, split virus, triv alent, preservative 08/02/2022 Moderna SARS-CoV-2 Bivalent Vaccine 12+ y.o. 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 Wear glas ses Gastric reflux Renal stone 2004 Sexual dysfunction Anemia 2015 Related to diagn osis of MDS Arthritis [...] Duct, Stomach, Pancreas, Colon, Rectum, Anus Father Padmini Aguilar Pancreatic -Head and Neck Father Padmini Aguilar Carcinoma [...] Information Value Date Recorded Sex Assigned at Male 05/08/2025 10:07 AM CDT Legal Sex Male 9:20 AM CDT Gender Identity Male 05/08/2025 10:07 AM CDT Sexual Orientation Straight 05/08/2025 10 :07 AM CDT 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 Industry 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 Job 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 Not on file Not on file Not on file Obstetrics History Last Filed Vital Signs Vital Sign Reading Time Taken Comments Blood Pressure 102/59 02/14/2025 9:50 AM CDT Pulse 75 02/14/2025 9:50 AM CDT Temperature 36.8 °C (98.2 °F) 02/14/2025 9:50 AM CD T Respiratory Rate 18 02/14/2025 9:50 AM CDT Oxygen Saturation 98% 02/14/2025 9:50 AM CDT Inhaled Oxygen Concentration - - Weight 64.6 kg (142 lb 6.7 oz) 02/14/2025 9:50 A M CDT Height 159.4 cm (5' 2.76") 08/02/2024 9:53 AM CD T Body Mass Index 25.42 08/02/2024 9:53 AM CDT Plan of Treatment Upcoming Encounters Date Type Department Care Team (Late st Contact Info) Description 08/13/2025 4:45 PM CDT Telemedicine Le[facility] Center [address] [place] [address], 8th [place] [address] Esther Nair MD [address] [place] [phone] [email or web address] Maintenance Due Date Last Done Comments Pneumococcal Vaccine: 50+ Ye ars (1 of 2 - PCV) 1964 COVID-19 Vaccine (2024-2 6 season) 2025 07/01/2022, 02/09/2022, 06/24/2021, Additional history exists Influenza Vaccine (#1) 2025 08/02/2022, 2020 Procedures Procedure Name Priority Date/Time Associated Diagnosis Comments TMP INTERPRETATION ANTIBODY IDENTIFICATION Routine 02/14/2025 9:41 AM CDT Myelodysplastic syndrome, not otherwise specified TMP INTERP AUTO ANTIBODY SCREEN POSITIVE Routine 02/14/2025 9:41 AM CDT Myelodysplastic syndrome, not otherwise specified ANTIBODY ID Routine 02/14/2025 9:41 AM CDT Myelodysplastic syndrome, not otherwise specified ABID COMPLETE Routine 02/14/2025 9:41 AM CDT Myelodysplastic syndrome, not otherwise specified DIFFERENTIAL Routine 02/14/2025 9:41 AM CDT Myelodysplastic syndrome, not otherwise specified .CBC Routine 02/14/2025 9:41 AM CDT Myelodysplastic syndrome, not otherwise specified COMPLETE BLOOD COUNT W/ DIFFERENTIAL Routine 02/14/2025 9:41 AM CDT Myelodysplastic syndrome, not otherwise specified TYPE AND SCREEN Routine 02/14/2025 9:41 AM CDT Myelodysplastic syndrome, not otherwise specified ASPARTATE AMINOTRANSFERASE Routine 02/14/2025 9:41 AM CDT Myelodysplastic syndrome, not otherwise specified MAGNESIUM LEVEL Routine 02/14/2025 9:41 AM CDT Myelodysplastic syndrome, not otherwise specified ELECTROLYTE PANEL Routine 02/14/2025 9:4 1 AM CDT Myelodysplastic syndrome, not otherwise specified ALANINE AMINOTRANSFERASE Routine 025 9:41 AM CDT Myelodysplastic syndrome, not otherwise specified LACTATE DEHYDROGENASE Routine 02/14/2025 9:41 AM CDT Myelodysplastic syndrome, not otherwise specified ALKALINE PHOSPHATASE Routine 02/14/2025 9:41 AM CDT Myelodysplastic syndrome, not otherwise specified FRACTIONATED BILIRUBIN Routine 9:41 AM CDT Myelodysplastic syndrome, not otherwise specified URIC ACID Routine 02/14/2025 9:41 AM CDT Myelodysplastic syndrome, not otherwise specified CREATININE Routine 02/14/2025 9:41 AM CDT Myelodysplastic syndrome, not otherwise specified BLOOD UREA NITROGEN Routine 02/14/2025 9 :41 AM CDT Myelodysplastic syndrome, not otherwise specified GLUCOSE, RANDOM Routine 02/14/2025 9:41 AM CDT Myelodysplastic syndrome, not otherwise specified PHOSPHORUS LEVEL Routine 02/14/2025 9:41 AM CDT Myelodysplastic syndrome, not otherwise specified CALCIUM LEVEL Routine 02/14/2025 9:41 AM CDT Myelodysplastic syndrome, not otherwise specified ALBUMIN LEVEL Routine 02/14/2025 9:41 AM CDT Myelodysplastic syndrome, not otherwise specified TOTAL PROTEIN Routine 02/14/2025 9:41 AM CDT Myelodysplastic syndrome, not otherwise specified .CBC Routine 11/01/2024 9:42 AM [employer] Myelodysplastic syndrome, not otherwise specified COMPLETE BLOOD COUNT W/ DIFFERENTIAL Routine 11/01/2024 9:42 AM [employer] Myelodysplastic syndrome, not otherwise specified TYPE AND SCREEN Routine 11/01/2024 9:42 AM [employer] Myelodysplastic syndrome, not otherwise specified ASPARTATE AMINOTRANSFERASE Routine 11/01/2024 9:42 AM [employer] Myelodysplastic syndrome, not otherwise specified MAGNESIUM LEVEL Routine 11/01/2024 9:42 AM [employer] Myelodysplastic syndrome, not otherwise specified ELECTROLYTE PANEL Routine 11/01/2024 9:4 2 AM [employer] Myelodysplastic syndrome, not otherwise specified ALANINE AMINOTRANSFERASE Routine 025 9:42 AM [employer] Myelodysplastic syndrome, not otherwise specified LACTATE DEHYDROGENASE Routine 11/01/2024 9:42 AM [employer] Myelodysplastic syndrome, not otherwise specified ALKALINE PHOSPHATASE Routine 11/01/2024 9:42 AM [employer] Myelodysplastic syndrome, not otherwise specified FRACTIONATED BILIRUBIN Routine 9:42 AM [employer] Myelodysplastic syndrome, not otherwise specified URIC ACID Routine 11/01/2024 9:42 AM [employer] Myelodysplastic syndrome, not otherwise specified CREATININE Routine 11/01/2024 9:42 AM [employer] Myelodysplastic syndrome, not otherwise specified BLOOD UREA NITROGEN Routine 11/01/2024 9 :42 AM [employer] Myelodysplastic syndrome, not otherwise specified GLUCOSE, RANDOM Routine 11/01/2024 9:42 AM [employer] Myelodysplastic syndrome, not otherwise specified PHOSPHORUS LEVEL Routine 11/01/2024 9:42 AM [employer] Myelodysplastic syndrome, not otherwise specified CALCIUM LEVEL Routine 11/01/2024 9:42 AM [employer] Myelodysplastic syndrome, not otherwise specified ALBUMIN LEVEL Routine 11/01/2024 9:42 AM [employer] Myelodysplastic syndrome, not otherwise specified TOTAL PROTEIN Routine 11/01/2024 9:42 AM [employer] Myelodysplastic syndrome, not otherwise specified TRANSFUSE RED BLOOD CELLS Routine 08/02/2024 3:45 [...] AM CDT Myelodysplastic syndrome, not otherwise specified after 07/23/2024 Results * ABID Complete (02/14/2025 9:41 AM CDT) ABID Complete Yes 02/14/2025 12:04 PM CDT [facility] Blood Peripheral blood specimen / Unknown Venipuncture / Unknown 02/14/2025 9:41 AM CDT 02/14/2025 10:00 AM CDT Elsie NUÑEZ BLOOD BANK TEST ORDERABLES Fin al Result [facility] [address] [facility] [id number] [place] [address] * Glucose, Random (02/14/2025 9:41 AM CDT) Only the most recent of3 resultswithin the time period is included. Glucose Random 94 70 - 199 mg/dL 02/14/2025 10:47 AM CDT [facility] Blood Peripheral blood specimen / Unknown Venipuncture / Unknown 02/14/2025 9:41 AM CDT 02/14/2025 9:55 AM CDT Narrative [facility] - 02/14/2025 10:47 AM CDT Effective 05/12/16, the glucose reference intervals have been updated based on [employer] guidelines (Standards of Medical Care in Diabetes 2016. Diabetes Care 2016; 39: S13-S22). Fasting blood glucose: Normal: 70-99 mg/dL Impaired fasting glucose (increased risk for diabetes or pre-diabetes): 100-125 mg/dL Diabetes mellitus: >/=126 mg/dL Random blood glucose: Normal: 70-199 mg/dL Note: Random glucose >100 mg/dL is associated with increased risk for diabetes Elsie NUÑEZ LAB BLOOD ORDERABLES Final Res ult [facility] Unless otherwise noted, all lab tests performed by: Division of Pathology and Laboratory Medicine [facility] [place] [address] * (ABNORMAL) .CBC (02/14/2025 9:41 AM CDT) Only the most recent of3 resultswithin the time period is included. White Blood Cell 15.0(H) 4.1 - 10.5 K/uL 02/14/2025 11:30 AM CDT [facility] Red Blood Cell 1.92(L) 4.30 - 6.04 M/uL 02/14/2025 11:30 AM CDT [facility] Hemoglobin 8.3(L) 13.3 - 17.4 g/dL 02/14/2025 11:30 AM CDT [facility] Hematocrit 23.5(L) 39.5 - 51.8 % 02/14/2025 11:30 AM CDT [facility] Mean Cell Volume 122(H) 82 - 99 fL 02/14/2025 11:30 AM CDT [facility] Mean Cell Hemoglobin 43.2(H) 26.6 - 33.2 pg 02/14/2025 11:30 AM CDT [facility] Mean Cell Hemoglobin Concentration 35.3(H) 31.1 - 35.2 g/dL 02/14/2025 11:30 AM CDT [facility] RDW-SD 67.5(H) 37.5 - 49.7 fL 02/14/2025 11:30 AM CDT [facility] Red Cell Diameter Width 16.2(H) 11.6 - 15.5 % 02/14/2025 11:30 AM CDT [facility] Platelet 71(L) 160 - 397 K/uL 02/14/2025 11:30 AM CDT [facility] Mean Platelet Volume 12.5 9.1 - 12.6 fL 02/14/2025 11:30 AM CDT [facility] INRBC 0.0 0.0 - 0.1 /100 WBC 02/14/2025 11:30 AM CDT [facility] Comment: The INRBC (instrument NRBC) value reflects the enumeration of nucleated red blood cells contained in a 200uL sample of whole blood analyzed by the instrument. This value may differ from the NRBC value reported in a manual differential, which is based on a 100 cell differential. Blood Peripheral blood specimen / Unknown Venipuncture / Unknown 02/14/2025 9:41 AM CDT 02/14/2025 9:54 AM CDT Elsie NUÑEZ LAB BLOOD ORDERABLES Final Res ult [facility] Unless otherwise noted, all lab tests performed by: Division of Pathology and Laboratory Medicine [address] [place] [id number] * TMP Interp Auto Antibody Screen Positive (02/14/2025 9:41 AM CDT) TMP Auto Pos ABSC Interp At the present time, laboratory testing of this patient's red blood cell (RBC) antibody screen is positive. DISPENSING CROSSMATCH COMPATIBLE RBC UNITS TO THIS PATIENT MAY REQUIRE ADDITIONAL TIME. 02/15/2025 9:57 AM CDT [facility] TMP Signature . 02/15/2025 9:57 AM CDT [facility] Blood Peripheral blood specimen / Unknown Venipuncture / Unknown 02/14/2025 9:41 AM CDT 02/14/2025 10:00 AM CDT Elsie NUÑEZ BLOOD BANK TEST ORDERABLES Fin al Result [facility] [address] [place] [address] [id number] [place] [address] * (ABNORMAL) Fractionated Bilirubin (02/14/2025 9:41 AM CDT) Only the most recent of3 resultswithin the time period is included. Bilirubin Direct 0.4(H) 0.0 - 0.2 mg/dL 02/14/2025 10:47 AM CDT [facility] Comment:Indocyanine Green (I CG) may cause falsely elevated bilirubin results. Total and direct bilirubin must not be measured from samples containing indocyanine green. Bilirubin Indirect 0.6 0.0 - 1.0 mg/dL 02/14/2025 10:47 AM CDT [facility] Bilirubin Total 1.0 0.0 - 1.2 mg/dL 02/14/2025 10:47 AM CDT [facility] Comment:Indocyanine Green (I CG) may cause falsely elevated bilirubin results. Total and direct bilirubin must not be measured from samples containing indocyanine green. False elevation of total bilirubin can be seen in patients with IgG concentrations above 28 g/L. Blood Peripheral blood specimen / Unknown Venipuncture / Unknown 02/14/2025 9:41 AM CDT 02/14/2025 9:55 AM CDT Elsie NUÑEZ LAB BLOOD ORDERABLES Final Res ult [facility] Unless otherwise noted, all lab tests performed by: Division of Pathology and Laboratory Medicine [address] [place] [id number] * TMP Interpretation Antibody Identification (02/14/2025 9:41 AM CDT) Pathologist [facility] TMP ABID Interpretation At the present time, laboratory testing of this patient's red blood cell (RBC) antibody screen is positive. DISPENSING CROSSMATCH COMPATIBLE RBC UNITS TO THIS PATIENT MAY REQUIRE ADDITIONAL TIME. This patient has anti-E. This alloantibody is usually a consequence of previous transfusion and can cause a hemolytic transfusion reaction. If transfusion is necessary, he must receive extended crossmatch compatible E-antigen negative units. Approximately 70% of donor units are expected to be compatible. 02/16/2025 12:02 PM CDT [facility] TMP Signature . 02/16/2025 12:02 PM CDT [facility] Blood Peripheral blood specimen / Unknown Venipuncture / Unknown 02/14/2025 9:41 AM CDT 02/14/2025 10:00 AM CDT Elsie NUÑEZ BLOOD BANK TEST ORDERABLES Fin al Result [facility] [address] [place] [address].[address] [place] [id number] * Antibody Identification (02/14/2025 9:41 AM CDT) ABID 1 Anti-E 02/14/2025 12:04 PM CDT [facility] Blood Peripheral blood specimen / Unknown Venipuncture / Unknown 02/14/2025 9:41 AM CDT 02/14/2025 10:00 AM CDT Elsie NUÑEZ BLOOD BANK TEST ORDERABLES Fin al Result [facility] [address] [place] [address] [place] [id number] * (ABNORMAL) Differential (02/14/2025 9:41 AM CDT) Total Cells 115 02/14/2025 11:30 AM CDT [facility] Manual Neutrophil % 93.0(H) 43.2 - 72.7 % 02/14/2025 11:30 AM CDT [facility] Comment:The Neutrophil count includes Bands. Manual Lymphocyte % 2.0(L) 16.8 - 46.2 % 02/14/2025 11:30 AM CDT [facility] Manual Monocyte % 4.0(L) 5.1 - 12.5 % 02/14/2025 11:30 AM CDT [facility] Manual Eosinophil % 1.0 0.4 - 6.3 % 02/14/2025 11:30 AM CDT [facility] Metamyelocyte % 11:30 AM CDT [facility] Comment:The Metamyelocyte co unt includes Myelocytes. Nucleated RBC 1.0 /100 WBC 02/14/2025 11:30 AM CDT [facility] Manual Neutrophil Abs 13.95(H) 1.95 - 7.25 K/uL 02/14/2025 11:30 AM CDT [facility] Manual Lymphocyte Abs 0.30(L) 1.01 - 3.24 K/uL 02/14/2025 11:30 AM CDT [facility] Manual Monocyte Abs 0.60 0.24 - 0.85 K/uL 02/14/2025 11:30 AM CDT [facility] Manual Eosinophil Abs 0.15 0.02 - 0.50 K/uL 02/14/2025 11:30 AM CDT [facility] RBC Morphology PRESENT 02/14/2025 11:30 AM CDT [facility] Anisocytosis Present(A) (none) 02/14/2025 11:30 AM CDT [facility] Poikilocytosis Present(A) (none) 02/14/2025 11:30 AM CDT [facility] Ovalocyte Present(A) (none) 02/14/2025 11:30 AM CDT [facility] Tear Drop Present(A) (none) 02/14/2025 11:30 AM CDT [facility] Macrocyte Present(A) (none) 02/14/2025 11:30 AM CDT [facility] Slide Comment SEE NOTE 02/14/2025 11:30 AM CDT [facility] Comment:Platelet morphology normal. Blood Peripheral blood specimen / Unknown Venipuncture / Unknown 02/14/2025 9:41 AM CDT 02/14/2025 9:54 AM CDT us Elsie NUÑEZ LAB BLOOD ORDERABLES Final Res ult [facility] Unless otherwise noted, all lab tests performed by: Division of Pathology and Laboratory Medicine [address] [place] [id number] * (ABNORMAL) Type and Screen (02/14/2025 9:41 AM CDT) Only the most recent of3 resultswithin the time period is included. ABORh A POS 02/14/2025 9:38 AM CDT [facility] [facility] ABSC Positive(A) 02/14/2025 9:38 AM CDT [facility] - [facility]SF[facility]ION [facility] Clot Expiration 02/17/2025 23:59 02/14/2025 9:38 AM CDT [facility] Historical Record Check Complete 02/14/2025 9:38 AM CDT [facility] Blood Peripheral blood specimen / Unknown Venipuncture / Unknown 02/14/2025 9:41 AM CDT 02/14/2025 10:00 AM CDT Elsie NUÑEZ BLOOD BANK TEST ORDERABLES Fin al Result [facility] - TRANSFUSION SERVICES [facility] Transfusion Services [facility] [address] [place] [address] * Uric Acid (02/14/2025 9:41 AM CDT) Only the most recent of3 resultswithin the time period is included. Uric Acid 4.3 3.4 - 7.0 mg/dL 02/14/2025 10:47 AM CDT [facility] Blood Peripheral blood specimen / Unknown Venipuncture / Unknown 02/14/2025 9:41 AM CDT 02/14/2025 9:55 AM CDT Elsie NUÑEZ LAB BLOOD ORDERABLES Final Res ult [facility] Unless otherwise noted, all lab tests performed by: Division of Pathology and Laboratory Medicine [address] [place] [id number] * BUN (02/14/2025 9:41 AM CDT) Only the most recent of3 resultswithin the time period is included. BUN 11 6 - 23 mg/dL 02/14/2025 10:47 AM CDT [facility] Blood Peripheral blood specimen / Unknown Venipuncture / Unknown 02/14/2025 9:41 AM CDT 02/14/2025 9:55 AM CDT Elsie NUÑEZ LAB BLOOD ORDERABLES Final Res ult Performing Organization Address City/[facility] Co de Phone Number [facility] Unless otherwise noted, all lab tests performed by: Division of Pathology and Laboratory Medicine [address] [place] [id number] * Alanine Aminotransferase (02/14/2025 9:41 AM CDT) Only the most recent of3 resultswithin the time period is included. ALT 38 <=41 U/L 02/14/2025 10:47 AM CDT [facility] Blood Peripheral blood specimen / Unknown Venipuncture / Unknown 02/14/2025 9:41 AM CDT 02/14/2025 9:55 AM CDT Elsie NUÑEZ LAB BLOOD ORDERABLES Final Res ult Performing Organization Address [facility] de Phone Number [facility] Unless otherwise noted, all lab tests performed by: Division of Pathology and Laboratory Medicine [address] [place] [id number] * Aspartate Aminotransferase (02/14/2025 9:41 AM CDT) Only the most recent of3 resultswithin the time period is included. AST 31 <=40 U/L 02/14/2025 10:47 AM CDT [facility] Blood Peripheral blood specimen / Unknown Venipuncture / Unknown 02/14/2025 9:41 AM CDT 02/14/2025 9:55 AM CDT Elsie NUÑEZ LAB BLOOD ORDERABLES Final Res ult [facility] Unless otherwise noted, all lab tests performed by: Division of Pathology and Laboratory Medicine [address] [place] [id number] * Total Protein (02/14/2025 9:41 AM CDT) Only the most recent of3 resultswithin the time period is included. Tot Protein 7.0 6.4 - 8.3 gm/dL 02/14/2025 10:47 AM CDT [facility] Blood Peripheral blood specimen / Unknown Venipuncture / Unknown 02/14/2025 9:41 AM CDT 02/14/2025 9:55 AM CDT Narrative [facility] - 02/14/2025 10:47 AM CDT Reference range established based on adult population Elsie NUÑEZ LAB BLOOD ORDERABLES Final Res ult Performing Organization Address [facility] Co de Phone Number [facility] Unless otherwise noted, all lab tests performed by: Division of Pathology and Laboratory Medicine [address] [place] [id number] * Phosphorus Level (02/14/2025 9:41 AM CDT) Only the most recent of3 resultswithin the time period is included. Pathologist [facility] Phosphorus Level 3.7 2.5 - 4.5 mg/dL 02/14/2025 10:47 AM CDT [facility] Blood Peripheral blood specimen / Unknown Venipuncture / Unknown 02/14/2025 9:41 AM CDT 02/14/2025 9:55 AM CDT Elsie NUÑEZ LAB BLOOD ORDERABLES Final Res ult Performing Organization Address City/State/[facility] Co de Phone Number [facility] Unless otherwise noted, all lab tests performed by: Division of Pathology and Laboratory Medicine [address] [place] [id number] * Alkaline Phosphatase (02/14/2025 9:41 AM CDT) Only the most recent of3 resultswithin the time period is included. Alkaline Phosphatase 71 40 - 129 U/L 02/14/2025 10:47 AM CDT [facility] Blood Peripheral blood specimen / Unknown Venipuncture / Unknown 02/14/2025 9:41 AM CDT 02/14/2025 9:55 AM CDT Elsie NUÑEZ LAB BLOOD ORDERABLES Final Res ult Performing Organization Address City/[facility] de Phone Number [facility] Unless otherwise noted, all lab tests performed by: Division of Pathology and Laboratory Medicine [address] [place] [phone] * Magnesium Level (02/14/2025 9:41 AM CDT) Only the most recent of3 resultswithin the time period is included. Magnesium Level 1.8 1.6 - 2.6 mg/dL 02/14/2025 10:47 AM CDT [facility] Blood Peripheral blood specimen / Unknown Venipuncture / Unknown 02/14/2025 9:41 AM CDT 02/14/2025 9:55 AM CDT Elsie NUÑEZ LAB BLOOD ORDERABLES Final Res ult Performing Organization Address [facility] de Phone Number [facility] Unless otherwise noted, all lab tests performed by: Division of Pathology and Laboratory Medicine [address] [place] [id number] * LDH (02/14/2025 9:41 AM CDT) Only the most recent of3 resultswithin the time period is included. LDH 162 135 - 225 U/L 02/14/2025 10:44 AM CDT [facility] Blood Peripheral blood specimen / Unknown Venipuncture / Unknown 02/14/2025 9:41 AM CDT 02/14/2025 9:55 AM CDT Narrative [facility] - 02/14/2025 10:44 AM CDT Results greater than 1651 U/L may not be reliable due to matrix effect with extended dilution as it exceeds the public relations's recommended limit. Caution should be exercised when interpreting such values and done in conjunction with clinical context. Elsie NUÑEZ LAB BLOOD ORDERABLES Final Res ult [facility] Unless otherwise noted, all lab tests performed by: Division of Pathology and Laboratory Medicine [address] [place] [phone] * Creatinine (02/14/2025 9:41 AM CDT) Only the most recent of3 resultswithin the time period is included. Creatinine 0.74 0.67 - 1.17 mg/dL 02/14/2025 10:47 AM CDT [facility] eGFR 92 >=60 mL/min/1.7 3 sq. m 02/14/2025 10:47 AM CDT [facility] Comment: The eGFRcr is calculated with the [...] blood specimen / Unknown Venipuncture / Unknown 02/14/2025 9:41 AM CDT 02/14/2025 9:55 AM CDT Elsie NUÑEZ LAB BLOOD ORDERABLES Final Res ult Performing Organization Address City/[facility] Co de Phone Number [facility] Unless otherwise noted, all lab tests performed by: Division of Pathology and Laboratory Medicine [address] [place] [id number] * Calcium Level (02/14/2025 9:41 AM CDT) Only the most recent of3 resultswithin the time period is included. Calcium Level Total 9.7 8.2 - 10.2 mg/dL 02/14/2025 10:47 AM CDT [facility] Blood Peripheral blood specimen / Unknown Venipuncture / Unknown 02/14/2025 9:41 AM CDT 02/14/2025 9:55 AM CDT Elsie NUÑEZ LAB BLOOD ORDERABLES Final Res ult Performing Organization Address [facility] de Phone Number [facility] Unless otherwise noted, all lab tests performed by: Division of Pathology and Laboratory Medicine [address] [place] [id number] * Albumin Level (02/14/2025 9:41 AM CDT) Only the most recent of3 resultswithin the time period is included. Albumin Level 4.2 3.5 - 5.2 gm/dL 02/14/2025 10:47 AM CDT [facility] Blood Peripheral blood specimen / Unknown Venipuncture / Unknown 02/14/2025 9:41 AM CDT 02/14/2025 9:55 AM CDT Elsie NUÑEZ LAB BLOOD ORDERABLES Final Res ult Performing Organization Address City/[facility] Co de Phone Number [facility] Unless otherwise noted, all lab tests performed by: Division of Pathology and Laboratory Medicine [address] [place] [phone] * (ABNORMAL) Electrolyte Panel (02/14/2025 9:41 AM CDT) Only the most recent of3 resultswithin the time period is included. Sodium Level 140 136 - 145 mmol/L 02/14/2025 10:47 AM CDT [facility] Potassium Level 4.5 3.4 - 4.5 mmol/L 02/14/2025 10:47 AM CDT [facility] Chloride 102 98 - 107 mmol/L 02/14/2025 10:47 AM CDT [facility] CO2 30(H) 22 - 29 mmol/L 02/14/2025 10:47 AM CDT [facility] Anion Gap 8 4 - 14 mmol/L 02/14/2025 10:47 AM CDT [facility] Blood Peripheral blood specimen / Unknown Venipuncture / Unknown 02/14/2025 9:41 AM CDT 02/14/2025 9:55 AM CDT Elsie NUÑEZ LAB BLOOD ORDERABLES Final Res ult [facility] Unless otherwise noted, all lab tests performed by: Division of Pathology and Laboratory Medicine [address] [place] [address] * Transfuse RBC:Transfusion Date: 08/02/2024 (08/02/2024 6:48 PM CDT) Elsie NUÑEZ BLOOD TRANSFUSION ORDERABLES F inal Result * Prepare RBC:ATC-main, 1 Units (08/02/2024 10:34 AM CDT) Product Code [id number] [facility] - TRANSFUSION SERVICES Product Code Text Red Blood Cells [facility]SF[facility] QTY Ordered 1 [facility] Dispense Status Transfused [facility] Unit Expiration [id number] [facility] - TRANSF[facility]ION [facility] Unit Number [id number] [facility] - TRANSFUSION SERVICES Unit Blood Type A+ [facility] - TRANSFUSION SERVICES Bag Volume 393 [facility] TRANSF[facility] XM Interpretation Compatible U T [facility] - TRANSFUSION SERVICES Unit Blood Type Barcode 6200 [facility] PRBC Product Ready For Cut Out And Marking Machine Operator B2 Blood Bank [facility]SF[facility] RBC Product Status 1 RBC approved [facility] Comment:Order Form 03 when r rabia for product issue. Blood Elsie NUÑEZ BLOOD BANK PRODUCT ORDERABLES Final Result [facility] - TRANSFUSION [facility] Transfusion Services [address] [place] [address] after 07/23/2024 Insurance Advance Directives * Full Code (Latest Code Status on File) Date Activated Date Inactivated Comments 03/05/2025 4:17 PM Update based o n Advanced Directive Documentation Care Teams Customer Project Manager Relationship Specialty Start Date End Date Esther Nair MD [address] [place] [phone] [email or web address] PCP - General Leukemia 02/24/17 Telma Villarreal MD [address] [place] [address] [email or web address] PCP - External Referring Hematology 02/24/17 Steffany De La Torre [address] [place] [address] [email or web address] Physician Hematology and Oncology 06/29/18 Wicho Dial MD [address] [place] [phone] [email or web address] Consulting Physician Urology 03/21/17 Sally Cano MD [address] [place] [address] [phone] [email or web address] Consulting Physician Cardiology 06/02/23
--- NOTE | 2025-07-23 21:41 | RAD REPORT ---
EXAM: Chest Single View HISTORY: 80 years Male FEVER COMPARISON: 10/21/24 FINDINGS: LUNGS/PLEURA: The lungs are clear. No pleural effusions or pneumothorax. No pulmonary edema. CARDIAC/MEDIASTINUM: The cardiac silhouette is within normal limits. UPPER ABDOMEN: No significant abnormality. BONES: No acute abnormality. LINES/TUBES/OTHER: N/A IMPRESSION: No evidence of acute cardiopulmonary disease.
[2025-07-23] MEDS ORDERED: NA CHLORIDE 0.9% 2,000 ML ONE (22:19)
[2025-07-23] MEDS ORDERED: ACETAMINOPHEN 500 MG TAB ONE (22:24)
[2025-07-23 22:50] LABS: Absolute Lymphocytes (CBC) 0.1 K/uL (0.7-4.9); Hematocrit 20.6 % (39.6-49.0); Hemoglobin 7.2 g/dL (13.6-17.9); MCH 37.5 pg (27.0-35.0); MCHC 34.7 g/dL (32.0-36.0); MCV 108.1 fL (80-100); MPV 10.2 fL (7.6-11.3); Nucleated RBC Absolute Count 0.0 (0-0); Nucleated Red Blood Cells % 0.3 % (0-0); RBC Red Blood Cell Count 1.91 M/uL (4.33-5.43); White Blood Count 1.30 thou/uL (4.3-10.9)
[2025-07-23 22:54] LABS: PT Prothrombin Time 21.3 SECONDS (10-13.0); PTT, Activated Partial Thromb 35.3 SECONDS (27.2-37.4); Protime INR 1.92
[2025-07-23 23:03] LABS: Influenza A Ag Negative; Influenza B Ag Negative; SARS-CoV-2 Antigen Rapid Res Negative (Negative)
[2025-07-23 23:09] LABS: ALT/SGPT 71.0 U/L (16-61); AST/SGOT 69.0 U/L (15-37); Albumin 3.3 g/dL (3.4-5.0); Albumin/Globulin Ratio 0.9 (1.1-1.8); Alkaline Phosphatase 66.0 U/L (45-117); Anion Gap 10.0 mEq/L (5.0-15.0); BUN Blood Urea Nitrogen 18.0 mg/dL (7-18); Globulin 3.5 g/dL (2.3-3.5); Glucose Level 113.0 mg/dL (74-106); NT PRO-BNP 629.0 pg/mL (<450); Potassium 4.0 mEq/L (3.5-5.1)
[2025-07-23 23:12] LABS: Troponin High Sensitivity 79.2 pg/mL (<58.9)
[2025-07-23 23:29] LABS: Differential Total Cells Count 100; Segmented Neutrophils 35 % (40-80)
[2025-07-23 23:30] LABS: Anisocytosis 3+; Blood Morphology Comment NOTED (NOT SEEN); Macrocytosis 1+
[2025-07-23 23:38] LABS: Sqamous Epithelial <5 /HPF (None Seen); Urine Culture Reflex Order NOT NEEDED; Urine Microscopic Reflex YN ORDER UMIC
--- NOTE | 2025-07-23 23:54 | ER ---
Nurse's Notes [facility] Name: Juan Miguel Aguilar Age: 80 yrs Sex: Male : 1945 Arrival Date: 07/23/2025 Time: 20:56 Bed 5 Private MD: Diagnosis: Fever, unspecified Presentation: 07/23 21:04 Chief complaint: Patient states: fever that started an hour ago. Reports shakes and cp4 fell in the closet and could not get up. States generalized weakness. Coronavirus screen: Client denies travel out of the [place] in the last 14 days. At this time, the client does not indicate any symptoms associated with coronavirus-19. Ebola Screen: Patient negative for fever greater than or equal to 101.5 degrees Fahrenheit, and additional compatible Ebola Virus Disease symptoms Patient denies exposure to infectious person. Patient denies travel to an Ebola-affected area in the 21 days before illness onset. No symptoms or risks identified at this time. Initial Sepsis Screen: Does the patient meet any 2 criteria? HR > 90 bpm. No. Patient's initial sepsis screen is negative. Does the patient have a suspected source of infection? No. Patient's initial sepsis screen is negative. Risk Assessment: Do you want to hurt yourself or someone else? Patient reports no desire to harm self or others. Onset of symptoms was July 23, 2025 at 20:00. 21:04 Method Of Arrival: Wheelchair cp4 21:04 Acuity: SCARLET 3 cp4 Triage Assessment: 21:06 General: Appears in no apparent distress. uncomfortable, Behavior is calm, cooperative, cp4 appropriate for age. Pain: Denies pain. 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 - Infectious Disease History:: Denies. - Social history:: Smoking status: Patient denies any tobacco usage or history of. Screenin:43 [facility] ED Fall Risk Assessment (Adult) History of falling in the last 3 months, al5 including since admission Yes- single mechanical fall (1 pt) Confusion or Disorientation No (0 pts) Intoxicated or Sedated No (0 pts) Impaired Gait Yes (1 pt) Mobility Assist Device Used Yes (1 pt) Altered Elimination No (0 pt) Score/Fall Risk Level 3 or more points = High Risk Oriented to surroundings, Maintained a safe environment, Hourly rounding (assess needs \T\ fall precautionary measures) done, Utilized family, sitter, or virtual grinding operator as indicated. Abuse screen: Denies threats or abuse. Denies injuries from another. Nutritional screening: No deficits noted. Tuberculosis screening: No symptoms or risk factors identified. Assessment: 22:44 General: Appears in no apparent distress. comfortable, slender, well groomed, well al5 developed, Behavior is calm, cooperative. Pain: Denies pain. Neuro: Level of Consciousness is awake, alert, obeys commands, Oriented to person, place, time, situation. Cardiovascular: Patient's skin is warm and dry. Respiratory: Airway is patent Respiratory effort is even, unlabored, Respiratory pattern is regular, symmetrical. GI: No signs and/or symptoms were reported involving the gastrointestinal system. : No signs and/or symptoms were reported regarding the genitourinary system. EENT: No signs and/or symptoms were reported regarding the EENT system. Derm: Skin is intact, Skin is pink, warm \T\ dry. normal, wounds to R lower arm prior to arrival. patient had a fall at home. Musculoskeletal: Circulation, motion, and sensation intact. Range of motion: intact in all extremities. 23:12 Reassessment: Patient appears in no apparent distress at this time. No changes from kb4 previously documented assessment. Patient and/or family updated on plan of care and expected duration. Pain level reassessed. Patient is alert, oriented x 3, equal unlabored respirations, skin warm/dry/pink. 07/24 00:58 Reassessment: Patient and/or family updated on plan of care and expected duration. Pain kb4 level reassessed. Patient is alert, oriented x 3, equal unlabored respirations, skin warm/dry/pink. sent report to 4th floor. Vital Signs: 07/23 21:04 BP 92 / 47; Pulse 102; Resp 20; Temp 100.6; Pulse Ox 96% ; Weight 60.33 kg; Height 5 cp4 ft. 6 in. ; Pain 0/10; 23:32 BP 116 / 56; Pulse 94; Resp 19; Temp 100(O); Pulse Ox 97% ; kd3 07/24 00:38 BP 99 / 65; Pulse 94; Resp 19; Pulse Ox 98% on R/A; kd3 00:59 BP 109 / 83; Pulse 95; Resp 19; Pulse Ox 100% ; kb4 07/23 21:04 Body Mass Index 21.47 (60.33 kg, 167.64 cm) cp4 07/23 21:04 Pain Scale: Adult cp4 ED Course: 07/23 20:58 Patient arrived in ED. mr 21:06 Triage completed. cp4 21:06 Arm band placed on right wrist. Patient placed in waiting room. cp4 21:07 Licha Peng PA-C is PHCP. sb4 21:07 Bladimir Starks MD is Attending Physician. sb4 21:31 Chest Single View XRAY In Process Unspecified. EDMS 22:15 Inez Calixto, MICHELLE is Primary Nurse. kd3 22:24 No provider procedures requiring assistance completed. Inserted saline lock: 20 gauge al5 in right antecubital area, using aseptic technique. Blood collected. Flushed with 10 mL NS. 22:25 Inserted saline lock: 20 gauge in right forearm, using aseptic technique. Blood al5 collected. Flushed with 10 mL NS. 22:43 Patient has correct armband on for positive identification. Bed in low position. Call al5 light in reach. Side rails up X2. Provided Education on: plan of care. 22:45 Shaun Rangel MD is Attending Physician. sb4 23:53 Darvin Hoyt MD is Hospitalizing Provider. sb4 07/24 00:11 Chest Abdomen Pelvis W Con CT In Process Unspecified. EDMS 00:11 Head Brain Wo Cont CT In Process Unspecified. EDMS 01:35 Patient admitted, IV remains in place. kb4 Administered Medications: 07/23 22:26 Drug: Acetaminophen PO 1000 mg PO once Route: PO; kb4 07/24 01:00 Follow up: Response: No adverse reaction kb4 07/23 22:26 Drug: NS 0.9% IV 1000 ml IV at 1000 ml once; to be given as a bolus over 60 minutes kb4 Route: IV; Rate: 1000 ml; Site: right forearm; 07/24 00:59 Follow up: Response: No adverse reaction; IV Status: Completed infusion kb4 07/23 22:26 Drug: NS 0.9% IV 1000 ml IV at 1000 ml once; to be given as a bolus over 60 minutes kb4 Route: IV; Rate: 1000 ml; Site: right forearm; 07/24 01:00 Follow up: Response: No adverse reaction; IV Status: Completed infusion kb4 00:36 Drug: Cefepime IVPB 1 grams IVPB at 200 ml/hr once over 30 mins; (mix in NS 100 mL) kd3 Route: IVPB; Rate: 200 ml/hr; Infused Over: 30 mins; Site: right forearm; 01:34 Follow up: Response: No adverse reaction; IV Status: Completed infusion kb4 Medication: 01:35 VIS not applicable for this client. kb4 Outcome: 07/23 23:54 Decision to Hospitalize by Provider. sb4 07/24 01:35 Admitted to Med/surg accompanied by nurse, via stretcher, with chart, kb4 Condition: stable Instructed on the need for admit, 01:35 Patient left the ED. kb4 Signatures: Dispatcher [employer] EDMS Sanjana Howe, Reg Kirby mr Inez Calixto, RN RN kd3 Licha Peng PA-C PAMoody sb4 Deepali Yu Amanda, RN RN al5 Avani Henry RN RN kb4
--- NOTE | 2025-07-23 23:54 | EDPHYS ---
Physician Documentation [facility] Name: Juan Miguel Aguilar Age: 80 yrs Sex: Male : 1945 Arrival Date: 07/23/2025 Time: 20:56 Bed 5 Private MD: ED Physician Shaun Rangel HPI: 07/23 22:42 This 80 yrs old Male presents to ER via Wheelchair with complaints of Fever, Weakness. sb4 22:42 Got flu and COVID immunizations yesterday, has been very weak and a little altered sb4 today. states that he was shaking violently at home and ended up falling in the closet. They checked his temperature and noted a fever of 102.5 and brought him to the ED for further eval. Patient denies any pain at this time. He does have a history of myelodysplastic syndrome and receives blood transfusions frequently, last 1 a few weeks ago, had blood work done this week and was told his hemoglobin was 8. Is on Eliquis. 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 - Infectious Disease History:: Denies. - Social history:: Smoking status: Patient denies any tobacco usage or history of. ROS: 22:43 Cardiovascular: Negative for chest pain, palpitations, and edema, sb4 22:43 Constitutional: Positive for body aches, chills, fatigue, fever, malaise, 22:43 All other systems are negative, Exam: 22:43 Head/Face: Normocephalic, atraumatic. Eyes: Extra-ocular motions intact. Periorbital sb4 areas with no swelling, redness, or edema. ENT: Mucous membranes moist. Cardiovascular: Regular rate and rhythm with a normal S1 and S2. Respiratory: No increased work of breathing, no retractions or nasal flaring. Abdomen/GI: Soft, non-tender, no distension. 22:43 Constitutional: The patient appears alert, awake, obviously ill, 22:43 Cardiovascular: Rate: tachycardic, Rhythm: regular, 22:43 Skin: Appearance: Temperature: warm, 22:43 Skin: Multiple skin tears on right arm. Vital Signs: 21:04 BP 92 / 47; Pulse 102; Resp 20; Temp 100.6; Pulse Ox 96% ; Weight 60.33 kg; Height 5 cp4 ft. 6 in. ; Pain 0/10; 23:32 BP 116 / 56; Pulse 94; Resp 19; Temp 100(O); Pulse Ox 97% ; kd3 07/24 00:38 BP 99 / 65; Pulse 94; Resp 19; Pulse Ox 98% on R/A; kd3 00:59 BP 109 / 83; Pulse 95; Resp 19; Pulse Ox 100% ; kb4 07/23 21:04 Body Mass Index 21.47 (60.33 kg, 167.64 cm) cp4 07/23 21:04 Pain Scale: Adult cp4 MDM: 07/23 21:07 Medical Screening Exam initiated sb4 23:53 Data reviewed: vital signs, nurses notes, lab test result(s), EKG, radiologic studies, sb4 I have discussed the patient's presentation/case with the attending Emergency Department Physician; and as a result, I will admit patient. Consideration of Admission/Observation Patient was admitted/placed on observation. Historians other than the Patient: Parent: . Care significantly affected by the following chronic conditions: Cancer. Counseling: I had a detailed discussion with the patient and/or guardian regarding the historical points, exam findings, and any diagnostic results supporting the discharge/admit diagnosis, lab results, radiology results, the need for further work-up and treatment in the hospital. 07/23 21:08 Order name: BNP; Complete Time: 23:13 sb4 07/23 21:08 Order name: Blood Culture Adult (2) sb4 07/23 21:08 Order name: CBC with Diff; Complete Time: 23:33 sb4 07/23 21:08 Order name: CMP; Complete Time: 23:13 sb4 07/23 21:08 Order name: Lactate w/ 2H reflex if indic.; Complete Time: 23:04 sb4 07/23 21:08 Order name: Protime (+inr); Complete Time: 22:57 sb4 07/23 21:08 Order name: Ptt, Activated; Complete Time: 22:57 sb4 07/23 21:08 Order name: Troponin HS; Complete Time: 23:13 sb4 07/23 21:09 Order name: COVID-19 Ag + Flu A+B Ag; Complete Time: 23:04 sb4 07/23 21:09 Order name: UA Rfx Reji Cult if indicated; Complete Time: 23:39 sb4 07/23 21:09 Order name: CK; Complete Time: 23:13 sb4 07/23 22:32 Order name: Type And Screen vc1 07/23 23:23 Order name: Manual Differential; Complete Time: 23:33 EDMS 07/24 00:24 Order name: Antibody Identification EDMS 07/23 21:08 Order name: Chest Single View XRAY; Complete Time: 21:42 sb4 07/23 23:40 Order name: Chest Abdomen Pelvis W Con CT sb4 07/23 23:40 Order name: Head Brain Wo Cont CT sb4 07/23 21:09 Order name: Cardiac monitoring; Complete Time: 22:27 sb4 07/23 21:09 Order name: EKG - Nurse/Tech; Complete Time: 22:27 sb4 07/23 21:09 Order name: IV Saline Lock - Large Bore; Complete Time: 22:27 sb4 07/23 21:09 Order name: Labs collected and sent; Complete Time: 22:27 sb4 07/23 21:09 Order name: O2 Per Protocol; Complete Time: 22:27 sb4 07/23 21:09 Order name: O2 Sat Monitoring; Complete Time: 22:27 sb4 07/23 21:09 Order name: Vital Signs; Complete Time: 22:27 sb4 EC:47 Rate is 95 beats/min. Rhythm is regular, Sinus Rhythm with Occasional PVCs. FL interval sb4 is normal at 150 msec. QRS interval is normal at 96 msec. QT interval is normal at 376 msec. No Q waves. T waves are Normal. No ST changes noted. Clinical impression: No evidence of ischemia. Interpreted by me. Reviewed by me. Administered Medications: 22:26 Drug: Acetaminophen PO 1000 mg PO once Route: PO; [facility] 07/24 01:00 Follow up: Response: No adverse reaction [facility] 07/23 22:26 Drug: NS 0.9% IV 1000 ml IV at 1000 ml once; to be given as a bolus over 60 minutes kb4 Route: IV; Rate: 1000 ml; Site: right forearm; 07/24 00:59 Follow up: Response: No adverse reaction; IV Status: Completed infusion kb4 07/23 22:26 Drug: NS 0.9% IV 1000 ml IV at 1000 ml once; to be given as a bolus over 60 minutes kb4 Route: IV; Rate: 1000 ml; Site: right forearm; 07/24 01:00 Follow up: Response: No adverse reaction; IV Status: Completed infusion kb4 00:36 Drug: Cefepime IVPB 1 grams IVPB at 200 ml/hr once over 30 mins; (mix in NS 100 mL) kd3 Route: IVPB; Rate: 200 ml/hr; Infused Over: 30 mins; Site: right forearm; 01:34 Follow up: Response: No adverse reaction; IV Status: Completed infusion kb4 Disposition: 20:01 Co-signature as Attending Physician, Shaun Rangel MD I agree with the assessment sp4 and plan of care. I reviewed the patient's care provided by the Advanced Practice Provider and agree with the diagnosis and treatment plan. Disposition Summary: 07/23/25 23:54 Hospitalization Ordered Notes: Hospitalization Status: Inpatient Admission sb4 Provider: Darvin Hoyt Location: Telemetry/[facility] (Inpatient) sb4 Condition: Fair sb4 Problem: new sb4 Symptoms: are unchanged sb4 Bed/Room Type: Standard sb4 Room Assignment: 409(07/24/25 00:54) eb1 Diagnosis - Fever, unspecified sb4 Forms: - Medication Reconciliation Form sb4 - SBAR form sb4 - Leadership Thank You Letter sb4 Signatures: Dispatcher [employer] Mali Martinez RN RN eb1 Inez Calixto RN RN kd3 Licha Peng, PAMoody PA-C sb4 Shaun Rangel MD MD sp4 Deepali Yu Vivian vk Bowen, Kayla RN RN kb4 Corrections: (The following items were deleted from the chart) 07/23 21:09 21:09 PROBNP+C.LAB.BRZ ordered. EDMS EDMS 21: 21:09 BLOOD CULTURE*+BA.LAB.BRZ ordered. EDMS EDMS 21:09 CBC+H.LAB.BRZ ordered. EDMS EDMS : 21: COMPREHENSIVE METABOLIC PANEL+C.LAB.BRZ ordered. EDMS EDMS : 21: LACTATE+C.LAB.BRZ ordered. EDMS EDMS : 21: PROTIME (+INR)+COAG.LAB.BRZ ordered. EDMS EDMS : 21: PTT, ACTIVATED+COAG.LAB.BRZ ordered. EDMS EDMS : 21: Troponin High Sensitivity+C.LAB.BRZ ordered. EDMS EDMS : 21: COVID-19 Ag + Flu A+B Ag+I.LAB.BRZ ordered. EDMS EDMS : 21: UA Rfx Reji Cult if indicated+U.LAB.BRZ ordered. EDMS EDMS : 21: Chest Single View+RAD.RAD.BRZ ordered. EDMS EDMS : 21:09 Head C Spine MPR Wo Con+CT.RAD.BRZ ordered. EDMS EDMS 21: 21:10 CREATINE PHOSPHOKINASE+C.LAB.BRZ ordered. EDMS EDMS 22:32 21:09 Accucheck ordered. sb4 cp4 22:43 22:42 Got flu and COVID immunizations yesterday, has been very weak and a little sb4 altered today. states that he was shaking violently at home and ended up falling in the closet. They checked his temperature and noted a fever of 102.5 and brought him to the ED for further eval. Patient denies any pain at this time. sb4 23:23 22:54 CBC Smear Scan ordered. EDMS EDMS 07/24 00:27 07/23 23:54 sb4 vk 07/24 00:54 00:27 419 vk eb1
[2025-07-24] MEDS ORDERED: CEFEPIME 1 GM/VIAL ONE (00:10)
[2025-07-24] MEDS ORDERED: NA CHLORIDE 0.9% 100 ML ONE (00:10)
[2025-07-24 01:51] VITALS: BMI 21.4
[2025-07-24] MEDS ORDERED: ONDANSETRON 4 MG/2 ML VIAL IV PRN (02:13)
[2025-07-24] MEDS: NA CHLORIDE 0.9% 1,000 ML IV SCH (02:21)
--- NOTE | 2025-07-24 02:42 | RAD REPORT ---
EXAM: CT Chest, Abdomen and Pelvis With Intravenous Contrast CLINICAL HISTORY: weakness; Fever TECHNIQUE: Axial computed tomography images of the chest, abdomen and pelvis with intravenous contrast. Sagitt al and coronal reformatted images were created and reviewed. This CT exam was performed using one or more of the following dose reduction techniques: automated exposure control, adjustment of the m A and/or kV according to patient size, and/or use of iterative reconstruction technique. COMPARISON: CT abdomen pelvis dated 08/04/2017 FINDINGS: CHEST: Lungs and pleural spaces: Predominantly dependent bilateral upper, bilateral lower and right middle lobe hazy opacities. Scattered bilateral linear subsegmental atelectasis/pleural parenchymal scar. No significant effusion. No pneumothorax. Heart: The heart is mildly to moderately enlarged. Coronary artery and mitral annular calcification . No significant pericardial effusion. ABDOMEN: Liver: The liver is mildly enlarged. Gallbladder and bile ducts: Distended gallbladder. No calcified gallstones or gallbladder wall thic kening. No ductal dilation. Pancreas: Unremarkable. No ductal dilation. No mass. Spleen: The spleen is enlarged measuring 16.9 cm in craniocaudal dimension. Adrenals: Unremarkable. No mass. Kidneys and ureters: Partially duplicated left renal collecting system. Punctate bilateral renal ca lculi. No hydronephrosis. Bilateral renal cysts including parapelvic cysts at the lower pole moiety on the left. Additional subcentimeter hypodensities which are too small to characterize. No follow-up imaging is recommended. JACR 2018 Nov; 264-273, Management of the Incidental Renal Mass on CT, [employer] 2020; 814-848, Bosniak Classification of Cystic Renal Masses, Version 2019. Stomach and bowel: Colonic diverticula without adjacent inflammatory change. Moderate [place]outh l eft inguinal hernia progressed from the prior and containing a segment of the descending sigmoid colon junction. Small amount of fluid along the inferior margin of the hernia. Small [place] righ t inguinal hernia containing a small segment of small bowel. Trace adjacent fluid. No obstruction. No mucosal thickening. PELVIS: Appendix: Normal caliber appendix. No findings to suggest acute appendicitis. Bladder: Unremarkable. No mass. Reproductive: The prostate is moderately enlarged. CHEST, ABDOMEN and PELVIS: Intraperitoneal space: Unremarkable. No significant fluid collection. No free air. Bones/joints: Multilevel spondylosis. 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 No acute fracture. Soft tissues: See above. Vasculature: Moderate atherosclerotic disease. No aortic aneurysm. Lymph nodes: Unremarkable. No enlarged lymph nodes. IMPRESSION: 1. Predominantly dependent bilateral upper, bilateral lower and right middle lobe hazy opacities duran ggestive of atelectasis. Superimposed infiltrate is not excluded. 2. Splenomegaly. 3. Moderate left and small right inguinal hernias containing short segments of bowel with adjacent fluid. Please correlate with signs of incarceration. No proximal obstruction. 4. Other findings as above. Electronically signed by: Jose Ferguson MD 07/24/2025 01:57 AM CDT Due to temporary technical issues with the [employer] reporting system, reports are being clifford d by the in-house radiologist without review as a courtesy to ensure prompt reporting the interpreting radiologist is fully responsible for the content of the report. Transcribed Date/Time: 07/24/2025 2:42 AM
--- NOTE | 2025-07-24 02:43 | RAD REPORT ---
EXAM: CT Head Without Intravenous Contrast CLINICAL HISTORY: The patient is 80 years old and is Male; Declining state; Confused TECHNIQUE: Axial computed tomography images of the head/brain without intravenous contrast. Sagittal and cor onal reformatted images were created and reviewed. This CT exam was performed using one or more of the following dose reduction techniques: automated exposure control, adjustment of the mA and/or kV according to patient size, and/or use of iterative reconstruction technique. COMPARISON: No relevant prior studies available. FINDINGS: BRAIN: There is diffuse cerebral atrophy present. There is patchy hypoattenuation of the deep w edmond matter which is non-specific, but most likely owing to chronic small vessel ischemic change in a patient of this age group. No intracranial hemorrhage, mass effect or midline shift is seen. Ther e are no extra-axial fluid collections. The montemayor-white differentiation is maintained. There is no cerebral edema. VENTRICLES: Unremarkable. No ventriculomegaly. BONES/JOINTS: No acute fracture. SOFT TISSUES: Unremarkable. SINUSES: Unremarkable as visualized. No acute sinusitis. MASTOID AIR CELLS: Unremarkable as visualized. No mastoid effusion. ORBITS: Unremarkable as visualized. IMPRESSION: No acute intracranial findings. Electronically signed by: Vidhi Call MD 07/24/2025 01:47 AM CDT RP Due to temporary technical issues with the [employer] reporting system, reports are being clifford d by the in-house radiologist without review as a courtesy to ensure prompt reporting the interpreting radiologist is fully responsible for the content of the report. Transcribed Date/Time: 07/24/2025 2:43 AM
[2025-07-24 08:00] LABS: Absolute Lymphocytes (CBC) 0.1 K/uL (0.7-4.9); Hematocrit 18.0 % (39.6-49.0); Hemoglobin 6.2 g/dL (13.6-17.9); MCH 38.2 pg (27.0-35.0); MCHC 34.7 g/dL (32.0-36.0); MCV 110.1 fL (80-100); MPV 10.0 fL (7.6-11.3); Nucleated RBC Absolute Count 0.0 (0-0); Nucleated Red Blood Cells % 0.1 % (0-0); RBC Red Blood Cell Count 1.63 M/uL (4.33-5.43)
[2025-07-24 08:04] LABS: Anion Gap 8.7 mEq/L (5.0-15.0); BUN Blood Urea Nitrogen 14.0 mg/dL (7-18); Glucose Level 102.0 mg/dL (74-106); Potassium 3.7 mEq/L (3.5-5.1)
[2025-07-24 08:08] LABS: Troponin High Sensitivity 274.8 pg/mL (<58.9)
[2025-07-24] MEDS: VANCOMYCIN 1 GM in NA CHLORIDE 0.9% 250 ML IVPB SCH (08:29)
[2025-07-24] MEDS: CEFEPIME 1 GM in NA CHLORIDE 0.9% 100 ML IV SCH (09:50)
[2025-07-24 10:02] LABS: White Blood Cell Scan OK (OK)
[2025-07-24 10:03] LABS: Anisocytosis 3+; Blood Morphology Comment NOTED (NOT SEEN)
[2025-07-24 10:04] LABS: Hypochromasia 1+; Macrocytosis 2+
[2025-07-24] MEDS ORDERED: NA CHLORIDE 0.9% 250 ML IV SCH (11:00)
[2025-07-24 11:24] LABS: Troponin High Sensitivity 267.7 pg/mL (<58.9)
[2025-07-24 11:31] LABS: White Blood Count 0.80 thou/uL (4.3-10.9)
--- NOTE | 2025-07-24 14:03 | P.CNS ---
Date of Consult: 07/24/25 Reason for Consult: Elevated cardiac troponin Requesting Physician: Licha Peng Chief Complaint: Fatigue History of Present Illness: 80-year-old male with PMH HLD, MDS and severe pancytopenia requiring frequent transfusions (follows with Dr. Nair at [facility] and Dr. Medina in [place]), bilateral lower extremity DVTs 07/2023 (on apixaban), who presents with fatigue/weakness, fevers/chills, and falls. Patient is presently on IV antibiotics for neutropenic fever. Cardiology is consulted for elevated high- sensitivity cardiac troponin with peak of 274. Patient denies chest pain. Patient previously followed up with a refinery technician in [place] (Dr. Edouard), but lost to follow-up. Prior nuclear stress test 06/10/2023 negative with LVEF 73%. ECG shows SR with PACs. NT proBNP 629. Hemoglobin 6.2, platelets 21K and WBC 0 .8. Patient is hard of hearing. His is at bedside. Multiple bruises noted bilateral upper extremities. No prior history of coronary stents as per the . CT brain negative for intracranial abnormalities. CXR negative for acute cardiopulmonary disease. CT chest/abdomen/pelvis with contrast shows bilateral lower and right middle lobe hazy opacities, splenomegaly, inguinal hernias. He is hypotensive. Allergies ibuprofen Allergy (Verified 10/31/24 11:23) Hives, FLU LIKE SYMPTOMS venom-wasp Allergy (Verified 10/31/24 11:23) Anaphylaxis Home medications list reviewed: Yes Home Medications: Atorvastatin Calcium [Lipitor*] 5 mg PO BEDTIME 02/15/22 Apixaban [Eliquis] 2.5 mg PO BID 11/25/23 Ondansetron [Zofran] 4 mg PO Q6H PRN 04/03/24 - Past Medical/Surgical History Diabetic: No -: myelodysplastic syndrome -: HLD - Social History Smoking Status: Former smoker, Unknown if ever smoked Alcohol use: No CD- Drugs: No Caffeine use: Yes Place of Residence: Home Physical Examination Temp Pulse Resp BP Pulse Ox 98.0 F 92 H 16 91/48 L 95 07/24/25 12:00 07/24/25 12:00 07/24/25 12:00 07/24/25 12:00 07/24/25 12:00 General: Oriented x3, Other (Frail) HEENT: Atraumatic, Normocephalic Neck: JVD not distended Respiratory: Diminished Cardiovascular: Regular rate/rhythm, Normal S1 S2, Edema, Systolic murmur Capillary refill: <2 Seconds Gastrointestinal: Normal bowel sounds Musculoskeletal: Swelling Integumentary: Other (Diffuse ecchymosis) Neurological: Normal speech, Other (Hard of hearing) Laboratory Data (last 24 hrs) 07/23/25 07/23/25 07/23/25 22:26 22:26 22:26 WBC 1.30 L Hgb 7.2 L Hct 20.6 L Plt Count 28 L PT 21.3 H INR 1.92 APTT 35.3 Sodium 135 L Potassium 4.0 BUN 18 Creatinine 0.77 Glucose 113 H Total Bilirubin 1.9 H AST 69 H ALT 71 H Alkaline Phosphatase 66 Imagings Data: ECG and imaging reviewed - Problems (1) NSTEMI (non-ST elevated myocardial infarction) Current Visit: Yes Status: Acute Plan: Likely type II PR (supply/demand mismatch) in setting of severe anemia and acute illness (i.e. neutropenic fever/sepsis). Recommend treating underlying etiology. Patient is chest pain-free. At this time, the patient is at prohibitively high risk for any invasive evaluation (e.g. cardiac cath) due to severe anemia and thrombocytopenia, and additionally being on a DOAC (apixaban). Recommend medical management at this time. Once stable from infectious standpoint, obtain echocardiogram for further risk stratification. (2) Cardiac murmur Current Visit: Yes Status: Acute Plan: Significant systolic murmur on exam, likely high flow murmur from severe anemia, +/- . Follow-up echocardiogram. (3) History of DVT (deep vein thrombosis) Current Visit: Yes Status: Chronic Plan: On apixaban as outpatient. 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 Given severe pancytopenia, frailty and falls, recommend anticoagulation risk/benefit discussion with patient's oncologist. (4) Pancytopenia Current Visit: Yes Status: Acute Plan: Secondary to underlying MDS. Continue to monitor CBC and for signs/symptoms of bleeding. Close heme/onc follow-up recommended. (5) Sepsis Current Visit: Yes Status: Acute Plan: Agree with IV antibiotics and heme/onc follow-up.
[2025-07-24 23:11] LABS: Hematocrit 21.6 % (39.6-49.0); Hemoglobin 7.6 g/dL (13.6-17.9)
[2025-07-24 23:15] LABS: Troponin High Sensitivity 388.6 pg/mL (<58.9)
--- NOTE | 2025-07-25 00:08 | HP ---
Date of Admission: 07/24/2025 Chief Complaint: Fever, chills, and feeling weak. History Of Present Illness: This is an 80-year-old male patient, who is on chemotherapy for myelodysplastic syndrome and goes to [facility] as well as sees our local oncologist, Dr. Medina, and he gets this chemotherapy about every 28 days, last cycle was about 2 weeks ago. The patient has required very frequent blood transfusion for a long time. Yesterday, he got his influenza and COVID-19 vaccine and yesterday evening while he was in the closet, all of a sudden he felt extremely weak. He felt like his legs were very weak and he lost his balance and fell down in the closet. was in another room and about 15 minutes later, when came to the bedroom where the patient was, she found him on the floor in the closet and subsequently assisted him to get up and get back to the bed and about 0.5 hour later, the patient was having significant chills and fever of 102.3 degrees Fahrenheit. He was feeling very weak and with this, he was brought into emergency room and after he was evaluated, he was admitted to the hospital for further evaluation and management of this problem. I saw him this morning. His was with him at bedside. The patient has not been in contact with any sick person lately. He denies any vomiting, diarrhea. No cough, congestion, shortness of breath, or any expectoration. No sore throat. Allergies: HE IS LISTED ALLERGIC TO IBUPROFEN CAUSING CHILLS. Medications: List reviewed. Review of Systems: Constitutional: As mentioned above. All other systems reviewed and negative. Past Medical History: Significant for impaired fasting glucose, hypertension, hyperlipidemia, gastroesophageal reflux disease, diverticulosis, benign prostatic hypertrophy, anemia, myelodysplastic syndrome, renal cyst. Past Surgical History: Vasectomy, knee surgery. Family History: Father had TN. Mother, hypertension. Sister with migraine. Social History: Negative for smoking and alcohol use Physical Examination: Vital Signs: Last vital signs this morning, temperature 98.4, pulse 86, respiratory rate 17, blood pressure was 82/47, height 5 feet 6 inches, weight 133 pounds. When he first came into emergency room, his temperature was 100.6 degrees Fahrenheit. General: Awake, alert, oriented, not in distress. HEENT: Head atraumatic, normocephalic. Conjunctivae nonerythematous. Sclerae white. Mouth, no thrush or edema noted. Ears/Nose, no mass, lesion, discharge noted. Neck: Supple. No JVD, lymph nodes, bruit, thyromegaly noted. Lungs: Bilateral good equal air entry, not using any accessory muscles of respiration. Presence of some rales noted in lower lung smalls. Heart: Normal heart sounds, no murmur or gallop. Abdomen: Soft, bowel sounds normal. No guarding, rigidity, tenderness, mass, hepatosplenomegaly, distention, or bruit noted. Extremities: No leg edema. No calf tenderness. Skin: No rash, ulcer, cellulitis. Lymphatics: No lymph node enlargement in neck, supraclavicular, infraclavicular region. Neuro: No focal neurological deficit. Chest: Unremarkable. External Genitalia: Deferred. Rectal: Deferred. Laboratory Data: Yesterday upon admission, WBC 1.3, hemoglobin 7.2, platelets 28. Sodium 135, potassium 4, chloride 99, bicarb 30, BUN 18, creatinine 0.77, glucose 113, lactic acid 1.8. AST 69, ALT 71, total bilirubin 1.9. CPK 995. Troponin 79.2. ProBNP 629. Today, his WBC was 0.80, hemoglobin 6.2, platelets 21. Sodium 141, potassium 3.7, chloride 107, bicarb 29, BUN 14, creatinine 0.59, glucose 97. Troponin 274.8. ProBNP 889. Urinalysis, 3+ blood, otherwise negative. Influenza A, B, and COVID-19 test negative. Chest x-ray, no acute cardiopulmonary changes. CAT scan of the chest, abdomen, pelvis shows opacity in the right upper lobe and bilateral lower lobe. Splenomegaly. CAT scan of the head and cervical spine was negative for any acute changes. Impression: 1. Severe sepsis. 2. Pneumonia. 3. Pancytopenia. 4. Myelodysplastic syndrome. 5. Hyperlipidemia. 6. Impaired fasting glucose. 7. Hypertension. 8. Benign prostatic hypertrophy. 9. Non-STEMI type 2. Plan: We will go ahead and admit the patient to hospital for further evaluation and management of this problem. The patient is appropriate for inpatient and is expected to spend 2 midnights in hospital for his severe sepsis, which is likely due to underlying pneumonia on basis of the CAT scan. We will continue cefepime which was started in emergency room, but I will also add vancomycin per order. We will monitor the patient for how he responds to this antibiotic and if necessary, make adjustment as the time goes on. For pancytopenia, we will request consultation from oncologist, Dr. Medina, who was consulted today and he has ordered PRBC and platelet transfusion on the patient today. For DVT prophylaxis, SCD was ordered. For non-STEMI type 2, we will consult education research analyst. The patient is at high risk from any bleeding complication because of his severe thrombocytopenia, and Cardiology consultation was requested for this non-STEMI type 2. We will continue IV fluid per order and keep the patient in isolation. I did talk to the patient and his who was at bedside regarding advance directives and code status and at this time the patient remains full code as per his decision, but he informed me that he will communicate more details with his and if he changes his decision, obviously he will inform me. Total time spent 70 minutes including communication with nursing staff on multiple occasions today, communication with emergency room provider, review of emergency room visit record, review of last office visit record, and performing today's evaluation and management. I will see him tomorrow for followup. KERI/TESSA Voice ID: [id number] MTDD
[2025-07-25] MEDS: ACETAMINOPHEN 325 MG TABLET PO PRN (00:23)
[2025-07-25 05:24] LABS: Absolute Lymphocytes (CBC) 0.4 K/uL (0.7-4.9); Hematocrit 21.9 % (39.6-49.0); Hemoglobin 7.6 g/dL (13.6-17.9); MCH 34.8 pg (27.0-35.0); MCHC 34.9 g/dL (32.0-36.0); MCV 99.8 fL (80-100); MPV 9.7 fL (7.6-11.3); Nucleated RBC Absolute Count 0.0 (0-0); Nucleated Red Blood Cells % 0.6 % (0-0); RBC Red Blood Cell Count 2.19 M/uL (4.33-5.43)
[2025-07-25 05:29] LABS: White Blood Count 0.90 thou/uL (4.3-10.9)
[2025-07-25 05:37] LABS: Anion Gap 5.0 mEq/L (5.0-15.0); BUN Blood Urea Nitrogen 17.0 mg/dL (7-18); Glucose Level 93.0 mg/dL (74-106); Potassium 4.0 mEq/L (3.5-5.1)
--- NOTE | 2025-07-25 10:58 | P.PN ---
Subjective Date of Service: 07/25/25 Chief Complaint: Fatigue Feels significantly better today. Underwent RBC and platelet transfusion, with improvement in his counts. No chest pain. Family at bedside. Physical Examination - Vital Signs Temperature: 97.6 F Blood Pressure: 99/52 Pulse: 58 Respirations: 17 Pulse Ox (%): 96 - Physical Exam General: Alert, In no apparent distress, Oriented x3, Other (Hard of hearing) HEENT: Atraumatic, Normocephalic, EOMI Neck: JVD not distended Respiratory: Diminished Cardiovascular: Regular rate/rhythm, Normal S1 S2, Edema, Systolic murmur Gastrointestinal: Normal bowel sounds Musculoskeletal: No clubbing, Swelling Integumentary: No rashes Neurological: Normal speech, Other (Hard of hearing) Assessment And Plan - Current Problems (Diagnosis) (1) NSTEMI (non-ST elevated myocardial infarction) Current Visit: Yes Status: Acute Plan: Likely type II TX (supply/demand mismatch) in setting of severe anemia and acute illness (i.e. neutropenic fever/sepsis). Recommend treating underlying etiology. Patient is chest pain-free. At this time, the patient is at prohibitively high risk for any invasive evaluation (e.g. cardiac cath) due to s evere anemia and thrombocytopenia, and additionally being on a DOAC (apixaban). Recommend medical management at this time. Obtain echocardiogram for risk stratification and murmur. (2) Cardiac murmur Current Visit: Yes Status: Acute Plan: Significant systolic murmur on exam, likely high flow murmur from severe anemia, +/- . Follow-up echocardiogram. (3) History of DVT (deep vein thrombosis) Current Visit: Yes Status: Chronic Plan: On apixaban as outpatient. 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 Given severe pancytopenia, frailty and falls, recommend anticoagulation risk/benefit discussion with patient's oncologist. Okay to hold anticoagulation until platelets improve from cardiovascular standpoint (please confirm with patient's oncologist prior to stopping anticoagulation). (4) Pancytopenia Current Visit: Yes Status: Acute Plan: Secondary to underlying MDS and chemotherapy. Improvement in counts after RBC and platelet transfusion. Continue to monitor CBC and for signs/symptoms of bleeding. Close heme/onc follow-up recommended. (5) Sepsis Current Visit: Yes Status: Acute Plan: Improving with IV antibiotics. Heme/onc follow-up.
--- NOTE | 2025-07-25 22:09 | PN ---
Date of Progress Note: 07/25/2025 Subjective: The patient was seen this morning for followup. No new complaints or problems reported by patient. He was lying in bed, not in distress. was with him at bedside. Overall, he feels better in last 24 hours. This morning, he was feeling better compared to yesterday morning. All day yesterday, he slept most of the day and did not eat much, but yesterday evening for dinner, he had b petty appetite and he ate well. No new complaints or problems reported. was with him at [facility]. Objective: Vital Signs: Reviewed. HEENT: Unremarkable. Lungs: Clear to auscultation. Heart: Sounds normal. Abdomen: Soft. Bowel sounds normal. No guarding, rigidity, tenderness, distention. Extremities: No leg edema. Impression: 1. Pneumonia. 2. Fever. 3. Pancytopenia. 4. Myelodysplastic syndrome. Plan: The patient had blood transfusion and platelet transfusion yesterday and this morning, his WBC count was 0.9, hemoglobin 7.6, platelets 33. Sodium 139, potassium 4, chloride 108, bicarb 30, BUN 17, creatinine 0.51, and glucose 102. He will continue to follow up with oncologists as well as card iologist. I did talk to patient's and patient regarding treatment plan and that is to continue current antibiotics. His cardiac enzymes are elevated indicating non-STEMI type 2 and looking at the patient's current condition, his risk is lot more than benefit from doing any invasive cardiac proce dure and not only that risk of use of anti-platelet therapy in terms of bleeding risk is lot more brent n benefit. So at this point, conservative treatment is probably the best recommendation and und erstands that and she agrees with my concern about bleeding risk. We also talked about use of antico agulation as he had DVT in 2022 and has been on Eliquis since that time, which is being managed by Dr Sis Medina and I have discussed with the patient and that they should communicate with Dr. Medina and discussed the risk and benefit ratio in my opinion with such severe thrombocytopenia and anemia alfredo cast. His risk of using anticoagulation therapy is higher than benefit and in the future if he has blood clot in the leg, one has to consider possibility of IVC filter placement instead of ongoing us e of anticoagulation therapy and increasing risk of bleeding complication, which could be life-threat ening bleeding problems in somebody like him with severe thrombocytopenia problem. understands and agrees with conservative approach for cardiac condition along with not taking any anticoagulation therapy at this point and she will communicate with Dr. Medina. I will see him tomorrow for followu p, possible discharge to go home either tomorrow or day after tomorrow depending on his condition. W e will repeat blood work tomorrow. KERI/MODL Voice ID: [id number] Report ID: [id number]
[2025-07-26 06:38] LABS: Absolute Lymphocytes (CBC) 0.4 K/uL (0.7-4.9); Hematocrit 23.1 % (39.6-49.0); Hemoglobin 8.2 g/dL (13.6-17.9); MCH 35.5 pg (27.0-35.0); MCHC 35.2 g/dL (32.0-36.0); MCV 100.7 fL (80-100); MPV 9.3 fL (7.6-11.3); Nucleated RBC Absolute Count 0.0 (0-0); Nucleated Red Blood Cells % 0.1 % (0-0); RBC Red Blood Cell Count 2.30 M/uL (4.33-5.43); White Blood Count 1.10 thou/uL (4.3-10.9)
[2025-07-26 07:13] LABS: ALT/SGPT 77.0 U/L (16-61); AST/SGOT 91.0 U/L (15-37); Albumin 2.4 g/dL (3.4-5.0); Albumin/Globulin Ratio 0.8 (1.1-1.8); Alkaline Phosphatase 50.0 U/L (45-117); Anion Gap 4.6 mEq/L (5.0-15.0); BUN Blood Urea Nitrogen 18.0 mg/dL (7-18); Globulin 3.1 g/dL (2.3-3.5); Glucose Level 92.0 mg/dL (74-106); Magnesium 1.6 mg/dL (1.6-2.4); Potassium 3.6 mEq/L (3.5-5.1)
[2025-07-26 07:15] LABS: Troponin High Sensitivity 138.1 pg/mL (<58.9)
--- NOTE | 2025-07-26 10:20 | PN ---
Date of Progress Note: 07/26/2025 Subjective: The patient was seen this morning for followup. He looks a lot better. Yesterday he valladares d a lot better day than previous day. was with him at bedside. He did participate well with ph ysical therapy, ambulated very well outside in the hallway and his appetite was better yesterday comp ared to day before. Vital signs reviewed. The patient has remained afebrile. Objective: HEENT: Unremarkable. Lungs: Clear to auscultation. Heart: Sounds normal. Abdomen: Soft. Bowel sounds normal. No guarding, rigidity, tenderness, distention. Extremities: No leg edema. Laboratory Data: WBC 1.1, hemoglobin 8.2, platelets 33. Sodium 141, potassium 3.6, chloride 109, bi carb 31, BUN 18, creatinine 0.44, glucose 92, AST 91, ALT 77. Troponin 138.1. Impression: 1. Fever. 2. Pancytopenia. 3. Pneumonia. 4. Myelodysplastic syndrome. Plan: We will go ahead and continue current empiric antibiotic. The patient's WBC count has improve d. Hemoglobin after blood transfusion has improved and remained stable. Platelet count is also much better. There is no evidence of any bleeding. Cultures remained negative so far and I did encourag e the patient to continue to ambulate today. Continue current antibiotic. Our plan is to discharge him to go home tomorrow. Dr. Medina did call me today and discussed details. He is going to see sergio baptiste on outpatient basis next week on Tuesday and he agrees with not to continue Eliquis at this time considering low platelet count and he will follow up on getting an outpatient venous Doppler of lower extremity and monitor his blood work on outpatient basis. Echo with Doppler will be done today. I will see him tomorrow for followup. KERI/MODL Voice ID: [id number] Report ID: [id number]
[2025-07-26 13:14] LABS: Ferritin 5061.5 ng/mL (26-388); Iron 120.0 ug/dL (65-175); Transferrin 95.0 mg/dL (200-360)
[2025-07-26] MEDS: POTASSIUM CL SA 10 MEQ TAB PO ONE (13:21)
--- NOTE | 2025-07-26 13:41 | P.CNS ---
Date of Consult: 07/26/25 Hematology/Oncology Consultation Note CC: Fever, chills, feeling weak HPI 80M with PMHx of MDS o Imetelstat being seen in the hospital today for consultation. He is well known to our service and gets Imetelstat which was originally started in Sep 2024. He got Cycle 11 on Jul 11, 2025. He was admitted after he suffered a fall. He denies any chest pain or sob at this time. No fevers or chills he was given two units of PRBC transfusion and one unit of platelet transfusion yesterday - states he feels better. He was on eliquis before the admission which has been held. Case was discussed with wireline supervisor and PCP. Cardiology consulted for elevated troponins. NSt May 2023 negative with LVEF 73%. Patient got Influenza and COVID 19 vaccine before admission He has appointment with me next week Tuesday. Exam: Vitals BP 82/47, Wt 133lbs, Height 5ft 6 in, Temp 98.4F, pulse 86, Resp rate 17. General: AAOx3 Lungs Clear bilaterally Neuro: AAOX3 Heart: Normal S1 and S2, no murmurs or gallops Ext: No edema noted Labs: WBC 1.1, Hb 8.2, PLT 33K, sodium 141, potassium 3.6, chloride 109, bicarb 31, BUN 18, Cr 0.44, glucose 92, AST 91, ALT 77, Troponin 138. Impression: Fever Pancytopenia MDS Pneumonia Recommendations Monitor CBC Hold eliquis for now Case discussed with PCP and our clinic infusion staff - we have appointment give n to him for next week Tuesday AM Will monitor CBC outpatient Echo and doppler will be done today
--- NOTE | 2025-07-26 14:46 | P.PN ---
Subjective Date of Service: 07/26/25 Chief Complaint: Fatigue No acute events overnight. No chest pain. Family at bedside. Physical Examination - Vital Signs Temperature: 97.9 F Blood Pressure: 117/56 Pulse: 67 Respirations: 18 Pulse Ox (%): 100 - Physical Exam General: In no apparent distress, Oriented x3, Other (Hard of hearing) HEENT: Atraumatic, EOMI Neck: JVD not distended Respiratory: Diminished Cardiovascular: Regular rate/rhythm, Normal S1 S2, Edema, Systolic murmur Capillary refill: <2 Seconds Gastrointestinal: Normal bowel sounds Musculoskeletal: No clubbing, Swelling Integumentary: Other (Diffuse ecchymosis) Neurological: Normal speech - Studies Reviewed Imagings Data: Reviewed Medications List Reviewed: Yes Assessment And Plan - Current Problems (Diagnosis) (1) NSTEMI (non-ST elevated myocardial infarction) Current Visit: Yes Status: Acute Plan: Likely type II ND (supply/demand mismatch) in setting of severe anemia and acute illness (i.e. neutropenic fever/sepsis). Continue treating underlying etiology. Patient remains chest pain-free. Patient is at prohibitively high risk for any invasive evaluation (e.g. cardiac cath) due to severe anemia and thrombocytopenia, and additionally being on a DOAC (apixaban). Recommend medical management at this time. Follow-up echocardiogram for risk stratification and murmur. (2) Cardiac murmur Current Visit: Yes Status: Acute Plan: Significant systolic murmur on exam, likely high flow murmur from severe anemia, +/- . Follow-up echocardiogram. (3) History of DVT (deep vein thrombosis) Current Visit: Yes Status: Chronic Plan: On apixaban as outpatient. 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 Given severe pancytopenia, frailty and falls, recommend continuing anticoagulation risk/benefit discussion with patient's oncologist. Okay to hold anticoagulation until platelets improve from cardiovascular standpoint. (4) Pancytopenia Current Visit: Yes Status: Acute Plan: Improving secondary to underlying MDS and chemotherapy. Improvement in counts after RBC and platelet transfusion. Continue to monitor CBC and for signs/symptoms of bleeding. Close heme/onc follow-up recommended. (5) Sepsis Current Visit: Yes Status: Acute Plan: Improving with antibiotics. Heme/onc follow-up. - Plan Thank for the consult. Please call with any questions.
[2025-07-26 22:22] VITALS: O2SAT 97
[2025-07-27] MEDS ORDERED: VANCOMYCIN 1 GM in NA CHLORIDE 0.9% 250 ML IVPB SCH (01:00)
[2025-07-27] MEDS: VANCOMYCIN 1 GM in NA CHLORIDE 0.9% 250 ML IVPB SCH (01:42)
[2025-07-27 06:54] LABS: Absolute Lymphocytes (CBC) 0.4 K/uL (0.7-4.9); Hematocrit 22.0 % (39.6-49.0); Hemoglobin 7.8 g/dL (13.6-17.9); MCH 35.8 pg (27.0-35.0); MCHC 35.3 g/dL (32.0-36.0); MCV 101.2 fL (80-100); MPV 9.9 fL (7.6-11.3); Nucleated RBC Absolute Count 0.0 (0-0); Nucleated Red Blood Cells % 0.5 % (0-0); RBC Red Blood Cell Count 2.17 M/uL (4.33-5.43)
[2025-07-27 07:06] LABS: Anion Gap 5.6 mEq/L (5.0-15.0); BUN Blood Urea Nitrogen 13.0 mg/dL (7-18); Glucose Level 94.0 mg/dL (74-106); Magnesium 1.6 mg/dL (1.6-2.4); Potassium 3.6 mEq/L (3.5-5.1)
[2025-07-27 07:35] LABS: White Blood Count 1.00 thou/uL (4.3-10.9)
[2025-07-27 08:30] VITALS: BP 104/59; TEMP 98.7
--- NOTE | 2025-07-27 10:17 | P.PN ---
Subjective Date of Service: 07/27/25 Chief Complaint: Fatigue No acute events overnight. No chest pain. at bedside. Echo yesterday reveals severe aortic stenosis. Physical Examination - Vital Signs Temperature: 98.7 F Blood Pressure: 104/59 Pulse: 73 Respirations: 18 Pulse Ox (%): 93 - Physical Exam General: Alert, Oriented x3, Other (Hard of hearing) HEENT: Atraumatic, Normocephalic, EOMI Neck: JVD not distended Respiratory: Diminished Cardiovascular: Regular rate/rhythm, Normal S1 S2, Edema, Systolic murmur Capillary refill: <2 Seconds Gastrointestinal: Normal bowel sounds Musculoskeletal: No clubbing, Swelling Integumentary: Other (Diffuse ecchymosis) Neurological: Normal speech - Studies Reviewed Imagings Data: Reviewed Medications List Reviewed: Yes Assessment And Plan - Current Problems (Diagnosis) (1) NSTEMI (non-ST elevated myocardial infarction) Current Visit: Yes Status: Acute Plan: Likely type II HI (supply/demand mismatch) in setting of severe anemia, acute illness (i.e. neutropenic fever/sepsis), and severe aortic stenosis. Patient remains chest pain-free. Patient is at prohibitively high risk for any invasive evaluation (e.g. cardiac cath) due to severe anemia and thrombocytopenia, and additionally being on a DOAC (apixaban). Recommend medical management at this time. Patient will benefit from further multidisciplinary evaluation and management of her severe aortic stenosis. (2) Severe aortic stenosis Current Visit: Yes Status: Acute Plan: Late peaking murmur on exam. Murmur exacerbated by severe anemia. Echo reveals heavily calcified, severe aortic stenosis. Patient will benefit from referral to valve clinic for TAVR evaluation. Will need heart team approach and preoperative optimization given severe pancytopenia. (3) Cardiac murmur Current Visit: Yes Status: Acute Plan: As above. Secondary to severe aortic stenosis and anemia. (4) History of DVT (deep vein thrombosis) Current Visit: Yes Status: Chronic Plan: On apixaban as outpatient. 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 Given severe pancytopenia, frailty and falls, recommend continuing anticoagulation risk/benefit discussion with patient's oncologist. Okay to hold anticoagulation until platelets improve from cardiovascular standpoint. (5) Pancytopenia Current Visit: Yes Status: Acute Plan: Improving secondary to underlying MDS and chemotherapy. Improvement in counts after RBC and platelet transfusion. Continue to monitor CBC and for signs/symptoms of bleeding. Close heme/onc follow-up recommended. (6) Sepsis Current Visit: Yes Status: Acute Plan: Resolved with antibiotics. Heme/onc follow-up. - Plan Cardiology will sign off for now. Patient may follow-up with me in 1-2 weeks, and we will arrange for referral to valve clinic for TAVR evaluation as outpatient.
--- NOTE | 2025-07-27 11:50 | DS ---
Date of Discharge: 07/27/2025 Disposition: Discharged to go home. Physical Examination: HEENT: Unremarkable. Lungs: Clear to auscultation. Heart: Sounds normal. Presence of systolic murmur. No gallop. Abdomen: Soft. Bowel sounds normal. No guarding, rigidity, tenderness, distention. Extremities: No leg edema. Laboratory Data: Upon admission, WBC 1.3, hemoglobin 7.2, platelets 28. Sodium 135, potassium 4, chloride 99, bicarb 30, BUN 18, creatinine 0.77, glucose 113, lactic acid 1.8. AST 69, ALT 71, total bilirubin 1.9. CPK 995. Troponin 79.2. ProBNP 629.. Lowest hemoglobin was 6.2 and lowest platelet count was 21 and lowest WBC count was 0.80, and this was on 07/24/2025. Last blood work from today, WBC 1, hemoglobin 7.8, platelets 33, and for chemistry, sodium 141, potassium 3.6, chloride 109, bicarb 30, BUN 13, creatinine 0.33, glucose 116, and this was today. His last troponin was 138 from yesterday. Highest troponin was 388 from 07/24/2025. Discharge Diagnoses: 1. Severe sepsis. 2. Pneumonia. 3. Pancytopenia. 4. Myelodysplastic syndrome. 5. Aortic stenosis. 6. Hyperlipidemia. 7. Impaired fasting glucose. 8. Hypertension. 9. Benign prostatic hypertrophy. 10. Non-STEMI, type 2. Hospital Course: This is an 80-year-old male patient, who was admitted to the hospital with fever, chills, and generalized weakness. Please see dictated H and P for more information. The patient was brought into emergency room with this and was evaluated and admitted to the hospital. Initial evaluation included routine blood work and CAT scan and I was concerned about possibility of pneumonia on basis of CAT scan of the chest. The patient was started on empiric antibiotic which was vancomycin and cefepime. The patient remained afebrile after his admission to the hospital and responded well to antibiotic therapy. He has significant pancytopenia and consultation was requested from his oncologist, Dr. Medina. The patient sees Dr. Medina as well as goes to MD Gutierrez on outpatient basis for ongoing management for his myelodysplastic syndrome. His hemoglobin dropped down along with the platelet count requiring transfusion of packed red cells as well as platelets as ordered by Dr. Medina. After that, his count increased and remained stable. Physical Therapy was consulted and the patient participated well with physical therapy and overall his weakness has improved. His appetite has improved now. Cardiology, Dr. Mckeon was consulted and the patient has non-STEMI type 2, but unfortunately because of other comorbidities, we were not able to provide any anti-platelet or anticoagulation therapy to him because of the risk is more than the benefit and all those details were discussed with the patient and the patient's . Echocardiogram was done for further evaluation of this systolic murmur and as per electrocardiographic technician, Dr. Mckeon it has shown significant problem with aortic stenosis with heavily calcified aortic wall and Dr. Mckeon today communicated with the patient and the patient's that he will refer him to Valve Clinic at [facility] in [place] and he will make arrangements for this outpatient referral next week. The patient was taking Eliquis on outpatient basis as prescribed by Dr. Medina for DVT of lower extremity since 2022, but now with the low platelet count during this hospitalization, we did not give him any anticoagulation therapy and Dr. Medina did evaluate the patient and he informed me that he will not give any Eliquis at this point and he will re-evaluate him on outpatient basis, but he agrees at this time not to give any anticoagulation therapy. I had a long discussion with the patient and the patient's during this hospitalization about this severe anemia and severe thrombocytopenia, which basically puts him at high risk of any cardiac intervention for this aortic wall stenosis as well as any cardiac intervention. For example, for non-STEMI, ideally one would like to look at his coronaries' blood flow with help of angiogram, but he is not a candidate for any intervention at this time because of his myelodysplastic syndrome and abnormalities that we see on his blood work and also use of certain medications like anti-platelet and anticoagulation therapy. This definitely carries more risk and benefit. I have asked the patient and the patient's to come and see me for followup after the visit with electrocardiographic technician in [place] and I have also instructed them that they should not undergo any procedure without getting clearance from MD Gutierrez in view of his myelodysplastic syndrome and severe anemia as well as severe thrombocytopenia problem and we will continue to follow up on outpatient basis and provide assistance and guidance as it becomes necessary. Discharge Medications And Instructions: 1. STOP Eliquis 2. Continue Atorvastatin 3. Start Augmentin 875 mg, take 1 tablet by mouth two times a day with food for five days and prescription will be sent to [facility] at [facility] in [place] from Dr Hoyt's office. Follow up with Dr. Medina next week on 07/29/2025 Follow up with MD Gutierrez as per your scheduled appointment Follow up with electrocardiographic technician in [place] as per recommendation from Dr. Mckeon and he will send this referral to valve clinic at [facility] in [place]. Follow up with Dr. Hoyt after seeing electrocardiographic technician in [place]. Do not take any Aspirin, Aleve, Motrin, Naproxen or Ibuprofen type of medications. You may take Tylenol 500 mg, 1 tablet by mouth three to four times a day as needed. Total time spent 40 minutes. KERI/MODL Voice ID: [id number] Report ID: [id number] TITI
== END 2025-07-27 11:40 | disposition home or self-care (01) | DRG 871 ==
LOC: ER 20:56 → 4TH 07-24 00:17
PROVIDERS: ADMIT Internal Medicine; ATTEND Internal Medicine
PROC: 30233R1 Transfusion of Nonautologous Platelets into Peripheral Vein, Percutaneous Approach (ICD-10-PCS; principal; 2025-07-24)
PROC: 30233N1 Transfusion of Nonautologous Red Blood Cells into Peripheral Vein, Percutaneous Approach (ICD-10-PCS; 2025-07-24)
DX: A41.9 Sepsis, unspecified organism (principal); I21.A1 Myocardial infarction type 2; J18.9 Pneumonia, unspecified organism; D61.818 Other pancytopenia; R65.20 Severe sepsis without septic shock; D46.9 Myelodysplastic syndrome, unspecified; I35.0 Nonrheumatic aortic (valve) stenosis; I10 Essential (primary) hypertension; E78.00 Pure hypercholesterolemia, unspecified; K21.9 Gastro-esophageal reflux disease without esophagitis; N40.0 Benign prostatic hyperplasia without lower urinary tract symptoms; R01.1 Cardiac murmur, unspecified; R73.01 Impaired fasting glucose; R50.81 Fever presenting with conditions classified elsewhere; Z98.52 Vasectomy status; Z11.52 Encounter for screening for COVID-19; Z79.01 Long term (current) use of anticoagulants; Z91.09 Other allergy status, other than to drugs and biological substances; Z79.899 Other long term (current) drug therapy; Z87.891 Personal history of nicotine dependence; Z86.718 Personal history of other venous thrombosis and embolism
CPT/HCPCS: 36415; 70450; 71045; 71260; 74177; 80048; 80053; 80202; 81001; 82550; 82728; 83540; 83605; 83735; 83880; 84466; 84484; 85014; 85018; 85025; 85610; 85730; 86850; 86870; 86900; 86901; 86902; 86920; 86922; 87040; 87428; 93005; 93306; 96361; 96365; 97110; 97116; 97161; 97530; 99285; J0692; J3373; J7030; J7050; P9016; P9035; P9100; Q9967